=== PATIENT | male | born 1935 | race Caucasian/White ===

== ENCOUNTER 2016-11-04 11:33 | Emergency (ER) | payer MEDICARE, OTHER ==
[2016-11-04] MEDS ORDERED: NORMAL SALINE 500 ML IV ONE (13:31)
--- NOTE | 2016-11-04 13:32 | ER Document Report ---
ED Medical Screen (RME) - General Mode of Arrival: Ambulatory Information source: Patient TRAVEL OUTSIDE OF THE [place] IN LAST 30 DAYS: No <PATRICIA CHERY - Last Filed: 11/04/16 13:36> <JUDY WHEAT - Last Filed: 11/07/16 03:00> - General Chief Complaint: Abdominal Pain Stated Complaint: ABDOMINAL PAIN Notes: Patient is an 81-year-old male presenting emergency department for abdominal pain and nausea. Patient states he has had this pain for the past 6 months this morning. This pain was exacerbated. Patient woke up and asked his to taken into the emergency department because he is feeling very sick. Patient also has vomiting. Patient has a very decreased appetite and is not eating a lot. Patient has a history of hypertension and is not on any blood thinners. Patient's states that she saw some blood on his underwear. Patient falls a lot has not fallen recently. Patient also has dementia which is progressing. Patient is an alcoholic and has a history of widthdrawal. ( PATRICIA CHERY) - Related Data Allergies/Adverse Reactions: No Known Allergies Allergy (Verified 11/04/16 11:46) Past Medical History - Social History Chew tobacco use (# tins/day): No Frequency of alcohol use: Heavy Drug Abuse: None - Past Medical History Cardiac Medical History: Reports: Hx DVT, Hx Hypertension Denies: Hx Coronary Artery Disease, Hx Heart Attack Pulmonary Medical History: Denies: Hx Asthma, Hx Bronchitis, Hx COPD, Hx Pneumonia Neurological Medical History: Denies: Hx Cerebrovascular Accident, Hx Seizures Renal/ Medical History: Denies: Hx Peritoneal Dialysis Musculoskeltal Medical History: Reports Hx Arthritis Psychiatric Medical History: Reports: Hx Depression Traumatic Medical History: Reports: Hx Fractures - RIBS, RECENT Past Surgical History: Reports: Hx Neurologic Surgery - SPINAL FUSION - Immunizations Hx Diphtheria, Pertussis, Tetanus Vaccination: Yes <PATRICIA CHERY - Last Filed: 11/04/16 13:36> Physical Exam - Respiratory Respiratory status: No respiratory distress Chest status: Nontender Breath sounds: Normal Chest palpation: Normal - Cardiovascular Rhythm: Regular Heart sounds: Normal auscultation Murmur: No - Abdominal Tenderness: Tender - RLQ, LLQ and suprapubic tenderness with palpation, mild guarding, no rebound, no rigidity <PATRICIA CHERY - Last Filed: 11/04/16 13:36> Course <PATRICIA CHERY - Last Filed: 11/04/16 13:36> - Laboratory Result Diagrams: 11/04/16 15:00 11/04/16 15:00 <JUDY WHEAT - Last Filed: 11/07/16 03:00> - Re-evaluation Re-evalutation: 11/04/16 13:32 Patient presents emergency Department with his with a chief complaint abdominal pain. She said he is a chronic alcoholic for many years but got worse 3 or 4 years ago. She says she's also been increasingly confused and falls all the time. Last time he fell was about 2 weeks ago no known injury. He had an endoscopy done 68 months ago which showed an ulcer but he refused to take the Nexium. She said today she knew that he had drank this morning he was in severe distress complaining of abdominal pain. She said he gets increasingly confused so she can't really rely upon him but he said he needed to go to the hospital. He's been in withdrawal one time when he was admitted to the hospital by a year ago. His last drink was sometime this morning it is liquor only no ear he drinks about a half gallon of liquor every 4 days. She says he hasn't had anything to eat in about 2 days and has a poor appetite overall. She said she's been having nausea but no active vomiting and pain is located in the upper abdomen. On examination he is tachycardic and normotensive and afebrile. On examination he's got good bowel sounds. Tender to palpation with guarding in the right upper quadrant right lower quadrant suprapubic and left lower quadrant region. I am up in the triage area put a bunch of laboratory evaluation including IV and labs given reports my partner the back is going to be transferred to the back to have a further assessment and evaluation. 11/04/16 13:35 I personally performed the services described in the documentation reviewed the documentation recorded by my scribe in my presence and it accurately and completely records my words and actions (JUDY WHEAT) - Vital Signs Vital signs: Temp Pulse Resp BP Pulse Ox 98.4 F 112 H 12 132/87 H 99 11/04/16 11:46 11/04/16 11:46 11/04/16 17:01 11/04/16 17:00 11/04/16 17:01 - Laboratory Laboratory results interpreted by me: 11/04/16 11/04/16 11/04/16 15:00 15:00 15:00 RBC 3.30 L Hgb 12.2 L Hct 34.8 L MCV 105 H MCH 36.8 H Plt Count 98 L PT Sodium 136.6 L Lactic Acid Total Bilirubin 2.1 H Direct Bilirubin 0.9 H AST 74 H NT-Pro-B Natriuret Pep 577 H Total Protein 6.0 L Albumin 2.9 L Urine Protein Urine Urobilinogen Urine Ascorbic Acid 11/04/16 11/04/16 11/04/16 15:00 15:00 15:00 RBC Hgb Hct MCV MCH Plt Count PT 18.2 H Sodium Lactic Acid 2.5 H Total Bilirubin Direct Bilirubin AST NT-Pro-B Natriuret Pep Total Protein Albumin Urine Protein 100 H Urine Urobilinogen 4.0 H Urine Ascorbic Acid 20 H Doctor's Discharge <PATRICIA CHERY - Last Filed: 11/04/16 13:36> <JUDY WHEAT - Last Filed: 11/07/16 03:00> - Discharge Clinical Impression: Blood in stool, History of alcohol use disorder Abdominal pain Qualifiers: Abdominal location: unspecified location Qualified Code(s): R10.9 - Unspecified abdominal pain Condition: Stable Disposition: AGAINST MEDICAL ADVICE Instructions: Abdominal Pain ([facility]) Referrals: EMERALD TAPIA MD [Primary Care Provider] - Follow up as needed Scribe Documentation - Scribe Written by Scribe:: Patricia Chery 11/04/16 13:30 acting as scribe for DrLashell:: Siva <PATRICIA CHERY - Last Filed: 11/04/16 13:36>
--- NOTE | 2016-11-04 14:05 | ER Document Report ---
ED GI/ - General Chief Complaint: Abdominal Pain Stated Complaint: ABDOMINAL PAIN Mode of Arrival: Ambulatory Information source: Patient Notes: Patient presents complaining of a 6 month history of intermittent abdominal pain. Patient states that he had nausea and had dry heaves this morning. Patient reports decreased appetite at home. Patient ports previous history of an endoscopy procedure performed last year that showed early gastric ulcer. Patient reports having diarrhea 3 episodes today and when she noticed bright red blood. Patient does drink liquor about a half a gallon a day. Patient did drink alcohol this morning. TRAVEL OUTSIDE OF THE [place] IN LAST 30 DAYS: No - HPI Patient complains to provider of: Abdominal pain, Diarrhea - Nausea, Other Onset: Other - Abdominal pain off and on for 6 months, blood in stool this morning Timing/Duration: Gradual Quality of pain: Burning Pain Level: 2 Location: Epigastric Associated symptoms: Blood in stool, Diarrhea, Nausea, Vomiting - Dry heaving. denies: Blood in emesis, Urinary hesitancy, Urinary frequency, Urinary retention , Urinary urgency Exacerbated by: Denies Relieved by: Denies Similar symptoms previously: No Recently seen / treated by doctor: No - Related Data Allergies/Adverse Reactions: No Known Allergies Allergy (Verified 11/04/16 11:46) Past Medical History - General Information source: Patient - Social History Smoking Status: Never Smoker Chew tobacco use (# tins/day): No Frequency of alcohol use: Heavy Drug Abuse: None Lives with: Family Family History: Reviewed & Not Pertinent Patient has suicidal ideation: No Patient has homicidal ideation: No - Past Medical History Cardiac Medical History: Reports: Hx DVT, Hx Hypertension Denies: Hx Coronary Artery Disease, Hx Heart Attack Pulmonary Medical History: Denies: Hx Asthma, Hx Bronchitis, Hx COPD, Hx Pneumonia Neurological Medical History: Denies: Hx Cerebrovascular Accident, Hx Seizures Renal/ Medical History: Denies: Hx Peritoneal Dialysis Musculoskeltal Medical History: Reports Hx Arthritis Psychiatric Medical History: Reports: Hx Depression Traumatic Medical History: Reports: Hx Fractures - RIBS, RECENT Past Surgical History: Reports: Hx Neurologic Surgery - SPINAL FUSION - Immunizations Hx Diphtheria, Pertussis, Tetanus Vaccination: Yes Hx Pneumococcal Vaccination: 07/11/12 Review of Systems - Review of Systems Constitutional: No symptoms reported. denies: Fever EENT: No symptoms reported Cardiovascular: No symptoms reported. denies: Chest pain Respiratory: No symptoms reported. denies: Cough, Short of breath Gastrointestinal: Abdominal pain, Diarrhea, Nausea, Vomiting, Rectal bleeding Genitourinary: No symptoms reported. denies: Dysuria, Flank pain Male Genitourinary: No symptoms reported Musculoskeletal: No symptoms reported. denies: Back pain Skin: No symptoms reported Hematologic/Lymphatic: No symptoms reported Neurological/Psychological: No symptoms reported Physical Exam - Vital signs Vitals: Temp Pulse Resp BP Pulse Ox 98.4 F 112 H 18 132/86 H 96 11/04/16 11:46 11/04/16 11:46 11/04/16 11:46 11/04/16 11:46 11/04/16 11:46 - General General appearance: Appears well, Alert In distress: None - HEENT Head: Normocephalic, Atraumatic Eyes: Normal Nasal: Normal Mouth/Lips: Normal Mucous membranes: Normal Pharynx: Normal Neck: Normal, Supple. No: Lymphadenopathy - Respiratory Respiratory status: No respiratory distress Chest status: Nontender Breath sounds: Normal. No: Rales, Rhonchi, Stridor, Wheezing Chest palpation: Normal - Cardiovascular Rhythm: Tachycardia Heart sounds: S1 appreciated, S2 appreciated Murmur: No - Abdominal Inspection: Normal Distension: No distension Bowel sounds: Normal Tenderness: Tender Organomegaly: No organomegaly - Epigastric - Back Back: Normal, Nontender. No: CVA tenderness, Vertebra tenderness - Extremities General upper extremity: Normal inspection, Normal strength General lower extremity: Normal inspection, Normal strength - Neurological Neuro grossly intact: Yes Cognition: Normal Morton Coma Scale Eye Opening: Spontaneous Evangelina Coma Scale Verbal: Oriented Morton Coma Scale Motor: Obeys Commands Evangelina Coma Scale Total: 15 - Psychological Associated symptoms: Normal affect, Normal mood - Skin Skin Temperature: Warm Skin Moisture: Dry Skin Color: Pale Course - Re-evaluation Re-evalutation: 11/04/16 14:05 Patient refuses rectal examination, patient states that whenever he has a bowel movement he will let us know and we can check his stool for blood at that time. 11/04/16 16:30 Patient states that he cannot to the bathroom and he had a more firm stool without any obvious blood. Patient denies any abdominal tenderness at this time. Tachycardia has resolved, heart rate is in the 80s to 90s. Patient states that he is ready to go home. 11/04/16 16:[address] Barajsa who recommends CT imaging of abdomen. 11/04/16 18:04 Patient attempted IV out, states he wants to leave and does not want to have any CT imaging of his abdomen. Patient states he's not having any abdominal pain. Patient reports that he has had a solid bowel movement here without any blood in his stool. Provider asked patient if he felt like he was withdrawing from alcohol and if he needs something to help him with his symptoms. Patient states that he does not need any medications that he does not feel that he is withdrawing from alcohol. Patient states that he wants his calls that he can leave and go home. Phoned patient's and advised her of patient's request for her to come pick him up. Patient's states she will be here shortly. 11/04/16 18:23 Patient wanting to leave AMA.The patient has decided not to proceed with further recommended testing or treatment to determine the cause of her symptoms. The risk and alternatives to the recommendation were discussed the patient voiced understanding. The patient appears clinically to have the capacity to make this decision. The patient was instructed that they could return to the ER at any time to complete the testing or treatment. Patient and his verbalized understanding and agree with plan to leave AMA. - Vital Signs Vital signs: Temp Pulse Resp BP Pulse Ox 98.4 F 112 H 12 132/87 H 99 11/04/16 11:46 11/04/16 11:46 11/04/16 17:01 11/04/16 17:00 11/04/16 17:01 - Laboratory Result Diagrams: 11/04/16 15:00 11/04/16 15:00 Laboratory results interpreted by me: 11/04/16 11/04/16 11/04/16 15:00 15:00 15:00 RBC 3.30 L Hgb 12.2 L Hct 34.8 L MCV 105 H MCH 36.8 H Plt Count 98 L PT Sodium 136.6 L Lactic Acid Total Bilirubin 2.1 H Direct Bilirubin 0.9 H AST 74 H NT-Pro-B Natriuret Pep 577 H Total Protein 6.0 L Albumin 2.9 L Urine Protein Urine Urobilinogen Urine Ascorbic Acid 11/04/16 11/04/16 11/04/16 15:00 15:00 15:00 RBC Hgb Hct MCV MCH Plt Count PT 18.2 H Sodium Lactic Acid 2.5 H Total Bilirubin Direct Bilirubin AST NT-Pro-B Natriuret Pep Total Protein Albumin Urine Protein 100 H Urine Urobilinogen 4.0 H Urine Ascorbic Acid 20 H Labs- All tests 24 hr 11/04/16 11/04/16 11/04/16 15:00 15:00 15:00 WBC 4.9 RBC 3.30 L Hgb 12.2 L Hct 34.8 L MCV 105 H MCH 36.8 H MCHC 35.0 RDW 13.2 Plt Count 98 L Seg Neutrophils % 63.1 Lymphocytes % 24.8 Monocytes % 11.4 Eosinophils % 0.3 Basophils % 0.4 Absolute Neutrophils 3.1 Absolute Lymphocytes 1.2 Absolute Monocytes 0.6 Absolute Eosinophils 0.0 Absolute Basophils 0.0 PT INR Sodium 136.6 L Potassium 4.2 Chloride 98 Carbon Dioxide 28 Anion Gap 11 BUN 11 Creatinine 1.08 Est GFR ( Amer) > 60 Est GFR (Non-Af Amer) > 60 Glucose 105 Lactic Acid Calcium 8.8 Magnesium 1.6 Total Bilirubin 2.1 H Direct Bilirubin 0.9 H Indirect Bilirubin Not Reportable Neonat Total Bilirubin Not Reportable AST 74 H ALT 37 Alkaline Phosphatase 111 Troponin I < 0.012 NT-Pro-B Natriuret Pep 577 H Total Protein 6.0 L Albumin 2.9 L Lipase 207.8 Urine Color Urine Appearance Urine pH Ur Specific [place] Urine Protein Urine Glucose (UA) Urine Ketones Urine Blood Urine Nitrite Urine Bilirubin Urine Urobilinogen Ur Leukocyte Esterase Urine WBC (Auto) Urine RBC (Auto) U Hyaline Cast (Auto) Urine Mucus (Auto) Urine Ascorbic Acid Urine Opiates Screen Urine Methadone Screen Ur Barbiturates Screen Ur Phencyclidine Scrn Ur Amphetamines Screen U Benzodiazepines Scrn Urine Cocaine Screen U Marijuana (THC) Screen Serum Alcohol 64 Blood Type Antibody Screen 11/04/16 11/04/16 11/04/16 15:00 15:00 15:00 WBC RBC Hgb Hct MCV MCH MCHC RDW Plt Count Seg Neutrophils % Lymphocytes % Monocytes % Eosinophils % Basophils % Absolute Neutrophils Absolute Lymphocytes Absolute Monocytes Absolute Eosinophils Absolute Basophils PT 18.2 H INR 1.46 Sodium Potassium Chloride Carbon Dioxide Anion Gap BUN Creatinine Est GFR ( Amer) Est GFR (Non-Af Amer) Glucose Lactic Acid 2.5 H Calcium Magnesium Total Bilirubin Direct Bilirubin Indirect Bilirubin Neonat Total Bilirubin AST ALT Alkaline Phosphatase Troponin I NT-Pro-B Natriuret Pep Total Protein Albumin Lipase Urine Color YELLOW Urine Appearance CLEAR Urine pH 7.0 Ur Specific [place] 1.009 Urine Protein 100 H Urine Glucose (UA) NEGATIVE Urine Ketones NEGATIVE Urine Blood NEGATIVE Urine Nitrite NEGATIVE Urine Bilirubin NEGATIVE Urine Urobilinogen 4.0 H Ur Leukocyte Esterase NEGATIVE Urine WBC (Auto) 2 Urine RBC (Auto) 1 U Hyaline Cast (Auto) 2 Urine Mucus (Auto) RARE Urine Ascorbic Acid 20 H Urine Opiates Screen Urine Methadone Screen Ur Barbiturates Screen Ur Phencyclidine Scrn Ur Amphetamines Screen U Benzodiazepines Scrn Urine Cocaine Screen U Marijuana (THC) Screen Serum Alcohol Blood Type Antibody Screen 11/04/16 11/04/16 11/04/16 15:00 15:00 15:40 WBC RBC Hgb Hct MCV MCH MCHC RDW Plt Count Seg Neutrophils % Lymphocytes % Monocytes % Eosinophils % Basophils % Absolute Neutrophils Absolute Lymphocytes Absolute Monocytes Absolute Eosinophils Absolute Basophils PT INR Sodium Potassium Chloride Carbon Dioxide Anion Gap BUN Creatinine Est GFR ( Amer) Est GFR (Non-Af Amer) Glucose Lactic Acid Calcium Magnesium Total Bilirubin Direct Bilirubin Indirect Bilirubin Neonat Total Bilirubin AST ALT Alkaline Phosphatase Troponin I NT-Pro-B Natriuret Pep Total Protein Albumin Lipase Urine Color Urine Appearance Urine pH Ur Specific [place] Urine Protein Urine Glucose (UA) Urine Ketones Urine Blood Urine Nitrite Urine Bilirubin Urine Urobilinogen Ur Leukocyte Esterase Urine WBC (Auto) Urine RBC (Auto) U Hyaline Cast (Auto) Urine Mucus (Auto) Urine Ascorbic Acid Urine Opiates Screen NEGATIVE Urine Methadone Screen NEGATIVE Ur Barbiturates Screen NEGATIVE Ur Phencyclidine Scrn NEGATIVE Ur Amphetamines Screen NEGATIVE U Benzodiazepines Scrn NEGATIVE Urine Cocaine Screen NEGATIVE U Marijuana (THC) Screen NEGATIVE Serum Alcohol Blood Type Cancelled B POSITIVE Antibody Screen Cancelled NEGATIVE Discharge - Discharge Clinical Impression: Blood in stool, History of alcohol use disorder Abdominal pain Qualifiers: Abdominal location: unspecified location Qualified Code(s): R10.9 - Unspecified abdominal pain Condition: Stable Disposition: AGAINST MEDICAL ADVICE Instructions: Abdominal Pain ([facility]) Referrals: EMERALD TAPIA MD [Primary Care Provider] - Follow up as needed
[2016-11-04] MEDS ORDERED: MAGNESIUM SULFATE IV ONE ×5 (14:16)
[2016-11-04] MEDS ORDERED: NORMAL SALINE IV ONE ×5 (14:16)
[2016-11-04] MEDS ORDERED: POTASSIUM CHLORIDE IV ONE ×5 (14:16)
[2016-11-04] MEDS ORDERED: [UNRECOGNIZED DRUG - OTHER] IV ONE ×5 (14:16)
[2016-11-04 15:18] LABS: ABSOLUTE LYMPHOCYTES (AUTO) 1.2 10^3/uL (0.5-4.7); ABSOLUTE MONOCYTES (AUTO) 0.6 10^3/uL (0.1-1.4); ABSOLUTE NEUT (AUTO) 3.1 10^3/uL (1.7-8.2); BASOPHILS % (AUTO) 0.4 % (0-2); EOSINOPHILS % (AUTO) 0.3 % (0-6); HEMATOCRIT 34.8 % (37.9-51.0); HEMOGLOBIN 12.2 g/dL (13.5-17.0); HGB HCT DIFFERENCE 1.8; LYMPHOCYTES % (AUTO) 24.8 % (13-45); MEAN CORPUSCULAR HEMOGLOBIN 36.8 pg (27.0-33.4); MEAN CORPUSCULAR VOLUME 105 fl (80-97); MONOCYTES % (AUTO) 11.4 % (3-13); RED CELL DISTRIBUTION WIDTH 13.2 % (11.5-14.0); SEGMENTED NEUTROPHILS % (AUTO) 63.1 % (42-78); WHITE BLOOD COUNT 4.9 10^3/uL (4.0-10.5)
[2016-11-04 15:21] LABS: PROTHROMBIN TIME 18.2 SEC (11.4-15.4)
[2016-11-04 15:33] LABS: ALANINE AMINOTRANSFERASE 37 U/L (21-72); ALBUMIN 2.9 g/dL (3.5-5.0); ALCOHOL 64 mg/dL (NONE DETECTED); ALKALINE PHOSPHATASE 111 U/L (38-126); ANION GAP 11 (5-19); ASPARTATE AMINO TRANSFERASE 74 U/L (17-59); BILIRUBIN,DIRECT 0.9 mg/dL (0.0-0.4); BILIRUBIN,TOTAL 2.1 mg/dL (0.2-1.3); BLOOD UREA NITROGEN 11 mg/dL (7-20); CALCIUM 8.8 mg/dL (8.4-10.2); CARBON DIOXIDE 28 mmol/L (22-30); CHLORIDE 98 mmol/L (98-107); CREATININE RESULT 1.08 mg/dL (0.52-1.25); GLUCOSE 105 mg/dL (75-110); LIPASE 207.8 U/L (23-300); MAGNESIUM 1.6 mg/dL (1.6-2.3); POTASSIUM 4.2 mmol/L (3.6-5.0); SODIUM 136.6 mmol/L (137-145)
[2016-11-04 15:41] LABS: APPEARANCE,URINE CLEAR; BILIRUBIN,URINE NEGATIVE (NEGATIVE); GLUCOSE, URINE NEGATIVE (NEGATIVE); KETONES,URINE NEGATIVE (NEGATIVE); LEUKOCYTE ESTERASE,URINE NEGATIVE (NEGATIVE); NITRITE,URINE NEGATIVE (NEGATIVE); PROTEIN,URINE 100 mg/dL (NEGATIVE); URINE SPECIFIC GRAVITY 1.009
[2016-11-04 15:43] LABS: TROPONIN I < 0.012 ng/mL
[2016-11-04 15:53] LABS: URINE BARBITURATES SCREEN NEGATIVE; URINE METHADONE SCREEN NEGATIVE; URINE OPIATES LOW NEGATIVE; URINE PHENCYCLIDINE SCREEN NEGATIVE
[2016-11-04] MEDS ORDERED: NORMAL SALINE 1000 ML 1,000 ML with POTASSIUM CHLORIDE 20 MEQ, MAGNESIUM SULFATE 8 MEQ,... IV SCH ×5 (18:00)
[2016-11-04 18:33] VITALS: BP 132/87
--- NOTE | 2016-11-04 19:37 | EKG REPORT ---
SEVERITY:- ABNORMAL ECG - SINUS RHYTHM LEFT ANTERIOR FASCICULAR BLOCK LOW VOLTAGE THROUGHOUT : Confirmed by: Rob Rod 04-Nov-2016 19:36:36
== END 2016-11-04 18:33 | disposition left against medical advice (07) ==
LOC: ER 11:33
DX: R10.13 Epigastric pain (principal); K92.1 Melena; R11.0 Nausea; R63.0 Anorexia; R19.7 Diarrhea, unspecified; I10 Essential (primary) hypertension; R00.0 Tachycardia, unspecified; Z86.718 Personal history of other venous thrombosis and embolism; Z87.11 Personal history of peptic ulcer disease; Z72.89 Other problems related to lifestyle
CPT/HCPCS: 36415; 80053; 80307; 81001; 83605; 83690; 83735; 83880; 84484; 85025; 85610; 86850; 86900; 86901; 93005; 93010; 96360; 96361; 99284

== ENCOUNTER 2017-01-01 20:24 | Emergency (ER) | payer MEDICARE, OTHER ==
[2017-01-01] MEDS ORDERED: ONDANSETRON HCL INJ/PF 4 MG/2 ML SDV IV ONE (21:03)
[2017-01-01] MEDS ORDERED: NORMAL SALINE 1000 ML 1,000 ML IV PRN (21:03)
--- NOTE | 2017-01-01 21:03 | ER Document Report ---
ED General - General Chief Complaint: Other Stated Complaint: NOT FEELING WELL Time Seen by Provider: 01/01/17 21:02 Mode of Arrival: Ambulatory Information source: Patient Notes: There is an 81-year-old man with a history of hypertension and arthritis who presents to the emergency room with nausea, vomiting and urinary frequency. Patient denies any abdominal pain. The patient denies any fever. He states he just wants to "be checked out". Medical history: Hypertension, prostate enlargement, alcoholism TRAVEL OUTSIDE OF THE [place] IN LAST 30 DAYS: No - HPI Onset: Last week Onset/Duration: Gradual Quality of pain: No pain Severity: None Pain Level: Denies Associated symptoms: denies: Chest pain, Fever, Shortness of breath Exacerbated by: Denies Relieved by: Denies Similar symptoms previously: Yes Recently seen / treated by doctor: No - Related Data Allergies/Adverse Reactions: No Known Allergies Allergy (Verified 11/04/16 11:46) Past Medical History - General Information source: Patient - Social History Smoking Status: Never Smoker Cigarette use (# per day): No Chew tobacco use (# tins/day): No Frequency of alcohol use: Heavy Drug Abuse: None Lives with: Family Family History: Reviewed & Not Pertinent Patient has suicidal ideation: No Patient has homicidal ideation: No - Past Medical History Cardiac Medical History: Reports: Hx DVT, Hx Hypertension Denies: Hx Coronary Artery Disease, Hx Heart Attack Pulmonary Medical History: Denies: Hx Asthma, Hx Bronchitis, Hx COPD, Hx Pneumonia Neurological Medical History: Denies: Hx Cerebrovascular Accident, Hx Seizures Renal/ Medical History: Denies: Hx Peritoneal Dialysis Musculoskeltal Medical History: Reports Hx Arthritis Psychiatric Medical History: Reports: Hx Depression Traumatic Medical History: Reports: Hx Fractures - RIBS, RECENT Past Surgical History: Reports: Hx Neurologic Surgery - SPINAL FUSION - Immunizations Hx Diphtheria, Pertussis, Tetanus Vaccination: Yes Hx Pneumococcal Vaccination: 07/11/12 Review of Systems - Review of Systems Constitutional: denies: Chills, Fever EENT: No symptoms reported Cardiovascular: No symptoms reported Respiratory: No symptoms reported Gastrointestinal: See HPI Genitourinary: See HPI, Frequency Male Genitourinary: No symptoms reported Musculoskeletal: No symptoms reported Skin: No symptoms reported Hematologic/Lymphatic: No symptoms reported Neurological/Psychological: No symptoms reported Physical Exam - Vital signs Vitals: Temp Pulse Resp BP Pulse Ox 98.1 F 88 20 128/77 H 97 01/01/17 20:45 01/01/17 20:45 01/01/17 20:45 01/01/17 20:45 01/01/17 20:45 Notes: Physical exam: GENERAL:-year-old man, alert and oriented 3, no acute distress HEAD: Atraumatic, normocephalic. EYES: Pupils equal round and reactive to light, extraocular movements intact, sclera anicteric, conjunctiva are normal. ENT: TMs normal, nares patent, oropharynx clear without exudates. Moist mucous membranes. NECK: Normal range of motion, supple without lymphadenopathy or JVD. LUNGS: Breath sounds clear to auscultation bilaterally and equal. No wheezes rales or rhonchi. HEART: Regular rate and rhythm without murmurs, rubs or gallops. ABDOMEN: Soft, normoactive bowel sounds. No tenderness to palpation. No guarding, no rebound. No masses appreciated. EXTREMITIES: Normal range of motion, no pitting or edema. No clubbing or cyanosis. 2+ pulses distally NEUROLOGICAL: Cranial nerves II through XII grossly intact. Normal speech, normal gait. PSYCH: Normal mood, normal affect. SKIN: Warm, Dry, normal turgor, no rashes or lesions noted. Course - Re-evaluation Re-evalutation: Note: The patient was treated with IV Zofran and IV fluids. His abdomen was soft and non-tender. Xrays of the abdomen looked good and the patient's labs were baseline. I have had a long conversation with the patient's . The patient drinks alcohol every day and he has been an alcoholic for quite awhile. I have discussed with her that he does not have any indication for hospitalization at this time. Additionally, he has a history of getting agitated in the ER and I do not want to see him escalate or require physical restraints. As far as the vomiting: he is currently eating a dinner box from the cafeteria. As far as his frequency: he has a long history of prostate enlargement. There is no evidence of infection. 01/01/17 23:31 - Vital Signs Vital signs: Temp Pulse Resp BP Pulse Ox 98.1 F 88 20 128/77 H 97 01/01/17 20:45 01/01/17 20:45 01/01/17 20:45 01/01/17 20:45 01/01/17 20:45 - Laboratory Result Diagrams: 01/01/17 21:17 01/01/17 22:15 Laboratory results interpreted by me: 01/01/17 01/01/17 01/01/17 21:17 21:28 22:15 RBC 3.99 L MCV 107 H MCH 36.0 H Plt Count 139 L Total Bilirubin 1.9 H Direct Bilirubin 1.1 H AST 77 H Albumin 3.4 L Urine Ascorbic Acid 20 H - Diagnostic Test Radiology reviewed: Image reviewed - X-ray shows no infiltrates or effusions. Abdominal x-ray showed no dilated loops of bowel, no air-fluid levels., Reports reviewed Discharge - Discharge Clinical Impression: Frequency due to prostate enlargement, vomiting resolved Condition: Stable Disposition: HOME, SELF-CARE Additional Instructions: Continue current medications. Take Zofran if needed for nausea Take Thiamine (a vitamin) as prescribed. Take Magnesium daily (400 mg): this is also a needed electrolyte. return to the ER for any concerns that you are getting worse. Prescriptions: Ondansetron HCl [Zofran 4 mg Tablet] 1 - 2 tab PO Q4H PRN #10 tablet PRN Reason: Thiamine HCl [Thiamine 100 mg Tablet] 100 mg PO DAILY #30 tablet Referrals: EMERALD TAPIA MD [ACTIVE STAFF] - Follow up as needed
[2017-01-01 21:29] LABS: ABSOLUTE LYMPHOCYTES (AUTO) 2.4 10^3/uL (0.5-4.7); ABSOLUTE MONOCYTES (AUTO) 0.6 10^3/uL (0.1-1.4); ABSOLUTE NEUT (AUTO) 2.4 10^3/uL (1.7-8.2); BASOPHILS % (AUTO) 0.6 % (0-2); EOSINOPHILS % (AUTO) 0.6 % (0-6); HEMATOCRIT 42.9 % (37.9-51.0); HEMOGLOBIN 14.4 g/dL (13.5-17.0); HGB HCT DIFFERENCE 0.3; LYMPHOCYTES % (AUTO) 44.5 % (13-45); MEAN CORPUSCULAR HGB CONC 33.5 g/dL (32.0-36.0); MEAN CORPUSCULAR VOLUME 107 fl (80-97); MONOCYTES % (AUTO) 11.1 % (3-13); RED BLOOD COUNT 3.99 10^6/uL (4.35-5.55); RED CELL DISTRIBUTION WIDTH 13.1 % (11.5-14.0); SEGMENTED NEUTROPHILS % (AUTO) 43.2 % (42-78); WHITE BLOOD COUNT 5.4 10^3/uL (4.0-10.5)
[2017-01-01 21:43] LABS: APPEARANCE,URINE CLEAR; BILIRUBIN,URINE NEGATIVE (NEGATIVE); GLUCOSE, URINE NEGATIVE (NEGATIVE); KETONES,URINE NEGATIVE (NEGATIVE); LEUKOCYTE ESTERASE,URINE NEGATIVE (NEGATIVE); NITRITE,URINE NEGATIVE (NEGATIVE); PROTEIN,URINE NEGATIVE (NEGATIVE); URINE SPECIFIC GRAVITY 1.004; UROBILINOGEN,URINE NEGATIVE mg/dL (<2.0)
[2017-01-01] MEDS ORDERED: LORAZEPAM 1 MG TABLET PO ONE (21:51)
[2017-01-01 21:56] LABS: RBC,URINE NONE SEEN /HPF; WBC,URINE NONE SEEN /HPF
--- NOTE | 2017-01-01 22:17 | RADIOLOGY REPORT (SQ) ---
EXAM DESCRIPTION: ACUTE ABDOMEN SERIES COMPLETED DATE/TIME: 01/01/2017 10:07 pm REASON FOR STUDY: n,vomting COMPARISON: None. NUMBER OF VIEWS: Three views. TECHNIQUE: PA chest, supine abdomen and upright/decubitus abdomen radiographic images acquired. LIMITATIONS: None. FINDINGS: CHEST: Lungs clear of infiltrates. FREE AIR: None. No abnormal gas collections. BOWEL GAS PATTERN: Scattered gas-filled small bowel loops. No Air fluid levels identified. No disten ded large or small bowel loops. CALCIFICATIONS: No suspicious calcifications. HARDWARE: None in the abdomen. SOFT TISSUES: No gross mass or suggestion of organomegaly. BONES: No acute fracture. No worrisome bone lesions. OTHER: No other significant finding. IMPRESSION: NONSPECIFIC BOWEL GAS PATTERN. TECHNICAL DOCUMENTATION: JOB ID: [id number] [employer]- All Rights Reserved
[2017-01-01 23:00] LABS: ALANINE AMINOTRANSFERASE 39 U/L (21-72); ALBUMIN 3.4 g/dL (3.5-5.0); ALKALINE PHOSPHATASE 117 U/L (38-126); ANION GAP 12 (5-19); ASPARTATE AMINO TRANSFERASE 77 U/L (17-59); BILIRUBIN,DIRECT 1.1 mg/dL (0.0-0.4); BILIRUBIN,TOTAL 1.9 mg/dL (0.2-1.3); BLOOD UREA NITROGEN 11 mg/dL (7-20); CALCIUM 8.4 mg/dL (8.4-10.2); CARBON DIOXIDE 27 mmol/L (22-30); CHLORIDE 100 mmol/L (98-107); CREATININE RESULT 0.98 mg/dL (0.52-1.25); GLUCOSE 80 mg/dL (75-110); MAGNESIUM 1.6 mg/dL (1.6-2.3); POTASSIUM 4.3 mmol/L (3.6-5.0); SODIUM 138.9 mmol/L (137-145); TOTAL PROTEIN 7.6 g/dL (6.3-8.2)
[2017-01-02 00:12] VITALS: BP 128/74
== END 2017-01-02 00:11 | disposition home or self-care (01) ==
LOC: ER 20:24
DX: R11.2 Nausea with vomiting, unspecified (principal); N40.1 Benign prostatic hyperplasia with lower urinary tract symptoms; R35.0 Frequency of micturition; I10 Essential (primary) hypertension; F10.20 Alcohol dependence, uncomplicated
CPT/HCPCS: 99283; 96374; 36415; 83735; 85025; 80053; 81001; 74022; A9270; J2405

== ENCOUNTER 2017-02-16 16:47 | Inpatient (IN) | payer MEDICARE, OTHER ==
[2017-02-16] MEDS ORDERED: DEXTROSE 5%-WATER 1000 ML 1,000 ML IV PRN (17:48)
[2017-02-16 18:23] LABS: HEMOGLOBIN 13.7 g/dL (13.5-17.0); HGB HCT DIFFERENCE 2.1; MEAN CORPUSCULAR HEMOGLOBIN 37.3 pg (27.0-33.4); MEAN CORPUSCULAR HGB CONC 35.2 g/dL (32.0-36.0); MEAN CORPUSCULAR VOLUME 106 fl (80-97); RED BLOOD COUNT 3.68 10^6/uL (4.35-5.55); WHITE BLOOD COUNT 4.2 10^3/uL (4.0-10.5)
[2017-02-16 18:35] LABS: ALANINE AMINOTRANSFERASE 48 U/L (21-72); ALKALINE PHOSPHATASE 119 U/L (38-126); ANION GAP 11 (5-19); ASPARTATE AMINO TRANSFERASE 93 U/L (17-59); BILIRUBIN,DIRECT 3.5 mg/dL (0.0-0.4); BLOOD UREA NITROGEN 13 mg/dL (7-20); CALCIUM 8.3 mg/dL (8.4-10.2); CARBON DIOXIDE 28 mmol/L (22-30); CHLORIDE 92 mmol/L (98-107); GLUCOSE 97 mg/dL (75-110); POTASSIUM 4.1 mmol/L (3.6-5.0); SODIUM 131.3 mmol/L (137-145); TOTAL PROTEIN 6.6 g/dL (6.3-8.2)
[2017-02-16] MEDS ORDERED: LORAZEPAM INJ 2 MG/1 ML VIAL IV ONE (19:00)
[2017-02-16] MEDS ORDERED: LORAZEPAM INJ 2 MG/1 ML VIAL IV PRN (19:22)
--- NOTE | 2017-02-16 19:22 | RADIOLOGY REPORT (SQ) ---
EXAM DESCRIPTION: CHEST SINGLE VIEW COMPLETED DATE/TIME: 02/16/2017 6:47 pm REASON FOR STUDY: WENDY SERNA COMPARISON: 08/10/2015 EXAM PARAMETERS: NUMBER OF VIEWS: One view. TECHNIQUE: Single frontal radiographic view of the chest acquired. RADIATION DOSE: NA LIMITATIONS: None. FINDINGS: LUNGS AND PLEURA: No opacities, masses or pneumothorax. No pleural effusion. MEDIASTINUM AND HILAR STRUCTURES: No masses. Contour normal. HEART AND VASCULAR STRUCTURES: Heart normal in size. Normal vasculature. BONES: There are old rib fractures on the right. HARDWARE: None in the chest. OTHER: No other significant finding. IMPRESSION: NO ACUTE RADIOGRAPHIC FINDING IN THE CHEST. TECHNICAL DOCUMENTATION: JOB ID: [id number]
--- NOTE | 2017-02-16 19:25 | RADIOLOGY REPORT (SQ) ---
EXAM DESCRIPTION: CT ABD/PELVIS NO ORAL OR IV COMPLETED DATE/TIME: 02/16/2017 6:48 pm REASON FOR STUDY: WENDY SERNA COMPARISON: 08/11/2015 TECHNIQUE: CT scan of the abdomen and pelvis performed without intravenous or oral contrast. Images reviewed with lung, soft tissue, and bone windows. Reconstructed coronal and sagittal MPR images revi ewed. All images stored on PACS. All CT scanners at this facility use dose modulation, iterative reconstruction, and/or weight based d osing when appropriate to reduce radiation dose to as low as reasonably achievable (ALARA). [facility]: Dose Right [facility]: CareDose [facility]: Dose Right [facility]: Teradose 4D [facility]: Smart VERTILAS RADIATION DOSE: Up-to-date CT equipment and radiation dose reduction techniques were employed. CTDIv ol: 13.3 mGy. DLP: 746 mGy-cm.mGy. LIMITATIONS: None. FINDINGS: LOWER CHEST: No significant findings. No nodules or infiltrates. NON-CONTRASTED LIVER, SPLEEN, ADRENALS: There is perihepatic and perisplenic fluid. No focal hepatic or splenic lesions. No adrenal masses. PANCREAS: No masses. No peripancreatic inflammatory changes. GALLBLADDER: There is high attenuating material in the gallbladder which may represent stones. Has t he patient had IV contrast? This could represent vicarious excretion of contrast. RIGHT KIDNEY AND URETER: No suspicious masses. Assessment limited by lack of IV contrast. No signif icant calcifications. No hydronephrosis or hydroureter. LEFT KIDNEY AND URETER: No suspicious masses. Assessment limited by lack of IV contrast. No signifi cant calcifications. No hydronephrosis or hydroureter. AORTA AND RETROPERITONEUM: No aneurysm. No retroperitoneal masses or adenopathy. BOWEL AND PERITONEAL CAVITY: There is moderate volume ascites. No evidence of mechanical obstruction , no bowel wall thickening. There is a hiatal hernia this contains small amount of ascites. APPENDIX: Not visualized. PELVIS, BLADDER, AND ABDOMINAL WALL:There is free fluid in the pelvis. Bladder wall is slightly thic kened. Prostate is enlarged. BONES: No significant findings. OTHER: No other significant finding. IMPRESSION: Moderate volume ascites. Prostate enlargement. TECHNICAL DOCUMENTATION: JOB ID: [id number] Quality ID # [id number]: Final reports with documentation of one or more dose reduction techniques (e.g., Au tomated exposure control, adjustment of the mA and/or kV according to patient size, use of iterative reconstruction technique) 2010 [employer]- All Rights Reserved
[2017-02-16] MEDS: LORAZEPAM INJ 2 MG/1 ML VIAL IV SCH (21:12)
[2017-02-16 23:10] LABS: PROTHROMBIN TIME 20.5 SEC (11.4-15.4)
[2017-02-16 23:11] LABS: PARTIAL THROMBOPLASTIN TIME 31.9 SEC (23.5-35.8)
[2017-02-17 04:51] LABS: APPEARANCE,URINE CLEAR; BILIRUBIN,URINE NEGATIVE (NEGATIVE); GLUCOSE, URINE NEGATIVE (NEGATIVE); KETONES,URINE NEGATIVE (NEGATIVE); LEUKOCYTE ESTERASE,URINE NEGATIVE (NEGATIVE); NITRITE,URINE NEGATIVE (NEGATIVE); PROTEIN,URINE 100 mg/dL (NEGATIVE); URINE SPECIFIC GRAVITY 1.006
[2017-02-17 08:36] LABS: URINE CREATININE 121.9 mg/dL (22-328); URINE PROTEIN 125.5 mg/dL (<12)
--- NOTE | 2017-02-17 08:44 | PDOC H&P ---
History of Present Illness Admission Date/PCP: 02/16/17 16:47 History of Present Illness: ERIC WEIR is a 81 year old male He came to the office with his primarily for the refill of his medication, atenolol. Patient has not been seen in the office in over a year, he is an alcoholic, he drinks liquor on a regular daily basis. The stated that he does not eat but he drinks alcohol every day. In the office he was evaluated he was found to have tachycardia with heart rate of about 130, he was jaundiced, the abdomen was distended there was shifting dullness that was suggestive of ascites, there was lower extremity edema, or this is consistent with acute liver failure because patient was acutely ill looking and the fact that I suspect acute liver injury I admitted him directly from the office into the hospital for management CT scan of the abdomen and pelvis with no contrast was done he showed perihepatic and perisplenic fluid no focal hepatic or splenic lesions. There was no masses in the pancreas. There is high attenuating material in the gallbladder which may represent stones no suspicious masses in both kidneys no significant calcifications no hydronephrosis or hydroureter. There is moderate volume ascites no evidence of mechanical obstruction no bowel wall thickening the prostate is enlarged the bladder wall is slightly thickened patient clinical condition is very poor, he is expected to stay 2 midnights he will be admitted, inpatient, he may need steroid therapy, intravenous thiamine, abdominal paracentesis. There is also acute kidney injury probably prerenal. Past Medical History Cardiac Medical History: Reports: Coronary Artery Disease, DVT, Hypertension, Other - He has a history of deep vein thrombosis Pulmonary Medical History: Reports: Chronic Obstructive Pulmonary Disease (COPD) GI Medical History: Reports: Cirrhosis - 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, once kidney function improved CT scan Musculoskeltal Medical History: Reports: Arthritis Psychiatric Medical History: Reports: Alcohol Dependency, Depression Social History Smoking Status: Never Smoker Frequency of Alcohol Use: Heavy Hx Recreational Drug Use: No Drugs: None Hx Prescription Drug Abuse: No Family History Family History: Reviewed & Not Pertinent Parental Family History Reviewed: Yes Children Family History Reviewed: Yes Sibling(s) Family History Reviewed.: Yes Medication/Allergy Home Medications: Amlodipine Besylate [Norvasc 2.5 mg Tablet] 2.5 mg PO DAILY 02/17/17 Atenolol [Tenormin] 25 mg PO Q12 02/17/17 Allergies/Adverse Reactions: No Known Allergies Allergy (Verified 11/04/16 11:46) Review of Systems Constitutional: PRESENT: anorexia Ears: ABSENT: hearing changes Cardiovascular: PRESENT: edema Respiratory: ABSENT: cough, hemoptysis Gastrointestinal: PRESENT: bloating Genitourinary: ABSENT: dysuria, hematuria Musculoskeletal: ABSENT: joint swelling Integumentary: ABSENT: rash, wounds Neurological: ABSENT: abnormal gait, abnormal speech, confusion, dizziness, focal weakness, syncope Psychiatric: ABSENT: anxiety, depression, homidical ideation, suicidal ideation Endocrine: ABSENT: cold intolerance, heat intolerance, menstrual abnormalities, polydipsia, polyuria Hematologic/Lymphatic: ABSENT: easy bleeding, easy bruising, lymphadenopathy Physical Exam Vital Signs: Temp Pulse Resp BP Pulse Ox 98.3 F 99 20 137/81 H 98 02/17/17 03:44 02/17/17 03:44 02/17/17 03:44 02/17/17 03:44 02/17/17 03:44 Intake & Output 02/16/17 02/17/17 02/18/17 06:59 06:59 06:59 Intake Total 668 Output Total 0 Balance 668 Weight 80 kg General appearance: PRESENT: mild distress Eye exam: PRESENT: PERRLA, scleral icterus Ear exam: PRESENT: normal external ear exam Mouth exam: PRESENT: moist, tongue midline Neck exam: PRESENT: full ROM Respiratory exam: PRESENT: clear to auscultation hussein Cardiovascular exam: PRESENT: RRR, +S1, +S2 Vascular exam: PRESENT: normal capillary refill GI/Abdominal exam: PRESENT: distended, other - caput medusa Rectal exam: PRESENT: deferred Extremities exam: PRESENT: pedal edema Neurological exam: PRESENT: altered Psychiatric exam: PRESENT: appropriate affect, normal mood Skin exam: PRESENT: dry, erythema - There is palmar erythema, intact, warm, other - There is caput medusa of the abdomen Results Laboratory Results: 02/16/17 18:15 02/16/17 18:15 02/16/17 02/16/17 02/17/17 18:15 18:15 04:22 WBC 4.2 RBC 3.68 L Hgb 13.7 Hct 39.0 MCV 106 H MCH 37.3 H MCHC 35.2 RDW 14.0 Plt Count 104 L Sodium 131.3 L Potassium 4.1 Chloride 92 L Carbon Dioxide 28 Anion Gap 11 BUN 13 Creatinine 1.30 H Est GFR ( Amer) > 60 Est GFR (Non-Af Amer) 53 L Glucose 97 Calcium 8.3 L Total Bilirubin 6.0 H AST 93 H ALT 48 Alkaline Phosphatase 119 Total Protein 6.6 Albumin 3.0 L Urine Color KARINA Urine Appearance CLEAR Urine pH 6.0 Ur Specific [place] 1.006 Urine Protein 100 H Urine Glucose (UA) NEGATIVE Urine Ketones NEGATIVE Urine Blood NEGATIVE Urine Nitrite NEGATIVE Ur Leukocyte Esterase NEGATIVE Urine WBC (Auto) 2 Urine RBC (Auto) 1 Impressions: Abdomen/Pelvis CT 02/16/17 00:00 IMPRESSION: Moderate volume ascites. Prostate enlargement. Chest X-Ray 02/16/17 00:00 IMPRESSION: NO ACUTE RADIOGRAPHIC FINDING IN THE CHEST. Assessment & Plan - Diagnosis (1) Acute liver failure Qualifiers: Hepatic coma status: without hepatic coma Qualified Code(s): K72.00 - Acute and subacute hepatic failure without coma Is this a current diagnosis for this admission?: YesPlan: He has stigmata of chronic liver disease including caput medusa,, erythema, jaundice, hypoalbuminemia, hyperbilirubinemia. He may need intravenous steroid (2) Acute on chronic alcoholic liver disease Is this a current diagnosis for this admission?: Yes (3) Alcoholic cirrhosis of liver with ascites Is this a current diagnosis for this admission?: YesPlan: Abdominal paracentesis will be ordered, most likely he has liver cirrhosis, once kidney function improves CT scan with contrast to be ordered. - Inpatient Certification Based on my medical assessment, after consideration of the patient's comorbidities, presenting symptoms, or acuity I expect that the services needed warrant INPATIENT care.: Yes Medical Necessity: Significant Comorbidiites Make Outpatient Treatment Too Risky , Need Close Monitoring Due to Risk of Patient Decompensation, Need For IV Fluids, Need for Neurological Checks, Risk of Complication if Not Cared For in Hospital
[2017-02-17] MEDS: THIAMINE HCL 100 MG in NORMAL SALINE 50 ML IV SCH (09:59)
[2017-02-17] MEDS: LORAZEPAM INJ 2 MG/1 ML VIAL IV SCH ×2 (10:01→21:55)
[2017-02-17 10:03] LABS: ABSOLUTE LYMPHOCYTES (AUTO) 1.5 10^3/uL (0.5-4.7); ABSOLUTE MONOCYTES (AUTO) 0.5 10^3/uL (0.1-1.4); ABSOLUTE NEUT (AUTO) 1.9 10^3/uL (1.7-8.2); ALANINE AMINOTRANSFERASE 45 U/L (21-72); ALKALINE PHOSPHATASE 114 U/L (38-126); ANION GAP 9 (5-19); ASPARTATE AMINO TRANSFERASE 84 U/L (17-59); BASOPHILS % (AUTO) 0.4 % (0-2); BILIRUBIN,DIRECT 3.1 mg/dL (0.0-0.4); BILIRUBIN,TOTAL 5.3 mg/dL (0.2-1.3); BLOOD UREA NITROGEN 13 mg/dL (7-20); CALCIUM 8.3 mg/dL (8.4-10.2); CARBON DIOXIDE 30 mmol/L (22-30); CHLORIDE 92 mmol/L (98-107); CREATININE RESULT 1.22 mg/dL (0.52-1.25); EOSINOPHILS % (AUTO) 0.9 % (0-6); GLUCOSE 125 mg/dL (75-110); HEMATOCRIT 39.8 % (37.9-51.0); HGB HCT DIFFERENCE 2.2; LYMPHOCYTES % (AUTO) 38.3 % (13-45); MEAN CORPUSCULAR HEMOGLOBIN 36.7 pg (27.0-33.4); MEAN CORPUSCULAR HGB CONC 35.2 g/dL (32.0-36.0); MEAN CORPUSCULAR VOLUME 104 fl (80-97); MONOCYTES % (AUTO) 12.4 % (3-13); POTASSIUM 3.6 mmol/L (3.6-5.0); RED BLOOD COUNT 3.82 10^6/uL (4.35-5.55); RED CELL DISTRIBUTION WIDTH 14.2 % (11.5-14.0); SODIUM 131.1 mmol/L (137-145); TOTAL PROTEIN 6.6 g/dL (6.3-8.2); WHITE BLOOD COUNT 3.9 10^3/uL (4.0-10.5)
--- NOTE | 2017-02-17 12:55 | EKG REPORT ---
SEVERITY:- ABNORMAL ECG - SINUS TACHYCARDIA VENTRICULAR PREMATURE COMPLEX LEFT ANTERIOR FASCICULAR BLOCK LOW VOLTAGE THROUGHOUT BORDERLINE T ABNORMALITIES, INFERIOR LEADS PROLONGED QT INTERVAL : Confirmed by: Rob Rod 17-Feb-2017 12:54:27
--- NOTE | 2017-02-17 14:26 | RADIOLOGY REPORT (SQ) ---
EXAM DESCRIPTION: U/S ABD PARACENTESIS COMPLETED DATE/TIME: 02/17/2017 1:49 pm REASON FOR STUDY: ascities COMPARISON CT abdomen pelvis 02/16/2017 LIMITATIONS: None. PROCEDURE: After obtaining informed consent, the patient was brought to the ultrasound suite. The p rocedure was performed with the patient on a gurney. Ultrasound was used to identify a small pocket of ascites in the right lower quadrant. An appropriate access site was selected. The patient was pr epped and draped in usual sterile fashion. The access site was anesthetized with 6 mL 1% lidocaine. A 5 Turk[place] Accustick needle was advanced into the fluid. After aspiration of fluid the needle, the catheter was advanced off the needle into the fluid. A total of 700 mL of clear straw-colored fluid was removed. The patient tolerated the procedure well left the department in satisfactory condition. Specimens were sent to the lab for analysis as per Dr. Pandya IMPRESSION: Successful ultrasound-guided diagnostic paracentesis COMMENT: Patient medication list reviewed: Yes- Quality ID# [id number]:Eligible professional attests to doc umenting in the medical record they obtained, updated, or reviewed the patient's current medications. Quality ID #76: The patient was prepped and draped using maximum sterile barrier technique including cap, mask, sterile gown, sterile gloves, a large sterile sheet, hand hygiene, and 2% Chlorhexidine fo r cutaneous antisepsis. When ultrasound is used, sterile ultrasound techniques are followed requiring sterile gel and sterile probes. Quality ID #145: Final reports for procedures using fluoroscopy that document radiation exposure claudio kimberly, or exposure time and number of fluorographic images (if radiation exposure indices are not avail able) TECHNICAL DOCUMENTATION: JOB ID: [id number] [employer]- All Rights Reserved
[2017-02-17 14:55] LABS: FLUID TYPE PERITONEAL
[2017-02-17 14:56] LABS: FLUID APPEARANCE CLEAR; FLUID RBC AVERAGE 56.5; FLUID RBC DILUENT USED NONE USED; FLUID RBC DILUTION FACTOR 1; FLUID RBC SIDE 1 56; FLUID RBC SIDE 2 57; TOTAL RBC SQUARES COUNTED FLD 225
[2017-02-17] MEDS ORDERED: NORMAL SALINE 1000 ML 1,000 ML IV PRN (21:04)
--- NOTE | 2017-02-17 21:10 | PDOC PROGRESS REPORT ---
Subjective Progress Note for:: 02/17/17 Subjective:: Patient was admitted yesterday when he presented to the office with acute liver failure associated with ascites. He underwent abdominal paracentesis today, 700 mL of ascites fluid was drained from the abdomen, patient is somewhat confused, the plan of care was discussed with family, he will be treated with IV Solu-Medrol for the acute alcohol hepatitis associated with hyperbilirubinemia. The kidney function is improved with hydration a CAT scan of the abdomen and pelvis with IV contrast will be ordered. Physical Exam Vital Signs: Temp Pulse Resp BP Pulse Ox 98.2 F 101 H 16 114/65 94 02/17/17 15:07 02/17/17 19:00 02/17/17 15:07 02/17/17 15:07 02/17/17 15:07 Intake & Output 02/16/17 02/17/17 02/18/17 06:59 06:59 06:59 Intake Total 668 400 Output Total 0 50 Balance 668 350 Weight 80 kg General appearance: PRESENT: mild distress Eye exam: PRESENT: PERRLA, scleral icterus Respiratory exam: PRESENT: clear to auscultation hussein Cardiovascular exam: PRESENT: +S1, +S2 GI/Abdominal exam: PRESENT: soft Neurological exam: PRESENT: altered Results Laboratory Results: 02/17/17 09:34 02/17/17 09:34 02/17/17 02/17/17 02/17/17 04:22 09:34 09:34 WBC 3.9 L RBC 3.82 L Hgb 14.0 Hct 39.8 MCV 104 H MCH 36.7 H MCHC 35.2 RDW 14.2 H Plt Count 101 L Seg Neutrophils % 48.0 Lymphocytes % 38.3 Monocytes % 12.4 Eosinophils % 0.9 Basophils % 0.4 Absolute Neutrophils 1.9 Absolute Lymphocytes 1.5 Absolute Monocytes 0.5 Absolute Eosinophils 0.0 Absolute Basophils 0.0 Sodium 131.1 L Potassium 3.6 Chloride 92 L Carbon Dioxide 30 Anion Gap 9 BUN 13 Creatinine 1.22 Est GFR ( Amer) > 60 Est GFR (Non-Af Amer) 57 L Glucose 125 H Calcium 8.3 L Total Bilirubin 5.3 H AST 84 H ALT 45 Alkaline Phosphatase 114 Total Protein 6.6 Albumin 3.0 L Urine Color KARINA Urine Appearance CLEAR Urine pH 6.0 Ur Specific [place] 1.006 Urine Protein 100 H Urine Glucose (UA) NEGATIVE Urine Ketones NEGATIVE Urine Blood NEGATIVE Urine Nitrite NEGATIVE Ur Leukocyte Esterase NEGATIVE Urine WBC (Auto) 2 Urine RBC (Auto) 1 Fluid Type Fluid Source Fluid Color Fluid Appearance Fluid Viscosity Fluid WBC Fluid RBC 02/17/17 13:30 WBC RBC Hgb Hct MCV MCH MCHC RDW Plt Count Seg Neutrophils % Lymphocytes % Monocytes % Eosinophils % Basophils % Absolute Neutrophils Absolute Lymphocytes Absolute Monocytes Absolute Eosinophils Absolute Basophils Sodium Potassium Chloride Carbon Dioxide Anion Gap BUN Creatinine Est GFR ( Amer) Est GFR (Non-Af Amer) Glucose Calcium Total Bilirubin AST ALT Alkaline Phosphatase Total Protein Albumin Urine Color Urine Appearance Urine pH Ur Specific [place] Urine Protein Urine Glucose (UA) Urine Ketones Urine Blood Urine Nitrite Ur Leukocyte Esterase Urine WBC (Auto) Urine RBC (Auto) Fluid Type PERITONEAL Fluid Source ASCITES Fluid Color YELLOW Fluid Appearance CLEAR Fluid Viscosity LIQUID Fluid WBC 64 Fluid RBC 62 Impressions: Abdomen/Pelvis CT 02/16/17 00:00 IMPRESSION: Moderate volume ascites. Prostate enlargement. Chest X-Ray 02/16/17 00:00 IMPRESSION: NO ACUTE RADIOGRAPHIC FINDING IN THE CHEST. 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
[2017-02-17] MEDS: METHYLPREDNISOLONE INJ 40 MG/1 ML SDV IV SCH (21:55)
[2017-02-18] MEDS: METHYLPREDNISOLONE INJ 40 MG/1 ML SDV IV SCH ×3 (05:43→21:26)
[2017-02-18] MEDS: THIAMINE HCL 100 MG in NORMAL SALINE 50 ML IV SCH (09:14)
[2017-02-18] MEDS: LORAZEPAM INJ 2 MG/1 ML VIAL IV SCH ×2 (09:14→21:26)
--- NOTE | 2017-02-18 13:54 | RADIOLOGY REPORT (SQ) ---
EXAM DESCRIPTION: CT ABD/PELVIS WITH IV ONLY COMPLETED DATE/TIME: 02/18/2017 1:31 pm REASON FOR STUDY: liver cirrhosis COMPARISON: Non contrasted CT of the abdomen and pelvis dated 02/16/2017 TECHNIQUE: CT scan of the abdomen and pelvis performed using helical scanning technique with dynamic intravenous contrast injection. No oral contrast. Images reviewed with lung, soft tissue, and bone windows. Reconstructed coronal and sagittal MPR images reviewed. Delayed images for evaluation of the urinary system also acquired. All images stored on PACS. All CT scanners at this facility use dose modulation, iterative reconstruction, and/or weight based d osing when appropriate to reduce radiation dose to as low as reasonably achievable (ALARA). [facility]: Dose Right [facility]: CareDose [facility]: Dose Right [facility]: Teradose 4D [facility]: Bountii CONTRAST TYPE AND DOSE: contrast/concentration: Isovue 370.00 mg/ml; Total Contrast Delivered: 86.0 ml; Total Saline Delivered: 69.0 ml RENAL FUNCTION: Not available RADIATION DOSE: Up-to-date CT equipment and radiation dose reduction techniques were employed. CTDIv ol: 14.2 - 18.2 mGy. DLP: 1978 mGy-cm.. LIMITATIONS: None. FINDINGS: LOWER CHEST: Small left pleural effusion is identified. LIVER: Normal size. No masses. No dilated ducts. There is diffuse fatty infiltration of the liver. SPLEEN: Normal size. No focal lesions. PANCREAS: No masses. No significant calcifications. No adjacent inflammation or peripancreatic fluid collections. Pancreatic duct not dilated. GALLBLADDER: No identified stones by CT criteria. No inflammatory changes to suggest cholecystitis. ADRENAL GLANDS: No significant masses or asymmetry. RIGHT KIDNEY AND URETER: No solid masses. No significant calcifications. No hydronephrosis or hyd roureter. LEFT KIDNEY AND URETER: No solid masses. No significant calcifications. No hydronephrosis or hydr oureter. AORTA AND VESSELS: No aneurysm. No dissection. Renal arteries, SMA, celiac without stenosis. RETROPERITONEUM: No retroperitoneal adenopathy, hemorrhage or masses. BOWEL AND PERITONEAL CAVITY: No masses or inflammatory changes. Perihepatic and perisplenic ascitic fluid appear essentially unchanged. APPENDIX: Not identified PELVIS: Pelvic ascitic fluid appears unchanged. Again there is prostatic enlargement with a prostati c impression on the bladder base. ABDOMINAL WALL: Ascitic fluid is identified in a left inguinal hernia. BONES: Degenerative changes are again identified OTHER: No other significant finding. IMPRESSION: Intra-abdominal and pelvic ascitic fluid appear essentially unchanged. Fatty infiltrati on of the liver. Other findings as noted above TECHNICAL DOCUMENTATION: JOB ID: [id number] Quality ID # [id number]: Final reports with documentation of one or more dose reduction techniques (e.g., Au tomated exposure control, adjustment of the mA and/or kV according to patient size, use of iterative reconstruction technique) 2010 [employer]- All Rights Reserved
[2017-02-18 14:47] LABS: ABSOLUTE LYMPHOCYTES (AUTO) 0.4 10^3/uL (0.5-4.7); ABSOLUTE MONOCYTES (AUTO) 0.2 10^3/uL (0.1-1.4); HEMOGLOBIN 13.7 g/dL (13.5-17.0); LYMPHOCYTES % (AUTO) 10.7 % (13-45); WHITE BLOOD COUNT 3.8 10^3/uL (4.0-10.5)
[2017-02-18 14:51] LABS: ABSOLUTE NEUT (AUTO) 3.2 10^3/uL (1.7-8.2); BASOPHILS % (AUTO) 0.1 % (0-2); HEMATOCRIT 38.8 % (37.9-51.0); HGB HCT DIFFERENCE 2.3; MEAN CORPUSCULAR HEMOGLOBIN 37.3 pg (27.0-33.4); MEAN CORPUSCULAR HGB CONC 35.4 g/dL (32.0-36.0); MEAN CORPUSCULAR VOLUME 105 fl (80-97); MONOCYTES % (AUTO) 6.2 % (3-13); RED BLOOD COUNT 3.68 10^6/uL (4.35-5.55)
[2017-02-18 15:39] LABS: ALANINE AMINOTRANSFERASE 40 U/L (21-72); ALBUMIN 2.6 g/dL (3.5-5.0); ALKALINE PHOSPHATASE 101 U/L (38-126); ANION GAP 9 (5-19); ASPARTATE AMINO TRANSFERASE 67 U/L (17-59); BILIRUBIN,DIRECT 3.1 mg/dL (0.0-0.4); BILIRUBIN,TOTAL 4.2 mg/dL (0.2-1.3); BLOOD UREA NITROGEN 16 mg/dL (7-20); CARBON DIOXIDE 26 mmol/L (22-30); CHLORIDE 97 mmol/L (98-107); CREATININE RESULT 1.16 mg/dL (0.52-1.25); GLUCOSE 139 mg/dL (75-110); POTASSIUM 4.3 mmol/L (3.6-5.0); SODIUM 131.7 mmol/L (137-145); TOTAL PROTEIN 6.2 g/dL (6.3-8.2)
--- NOTE | 2017-02-18 16:17 | PDOC PROGRESS REPORT ---
Subjective Progress Note for:: 02/18/17 Subjective:: Patient was seen by the bedside, the CAT scan of the abdomen and pelvis that was done showed fatty infiltration of the liver also demonstrates is ascities Physical Exam Vital Signs: Temp Pulse Resp BP Pulse Ox 97.7 F 114 H 18 136/86 H 96 02/18/17 11:35 02/18/17 13:57 02/18/17 11:35 02/18/17 11:35 02/18/17 11:35 Intake & Output 02/17/17 02/18/17 02/19/17 06:59 06:59 06:59 Intake Total 668 1400 200 Output Total 0 50 125 Balance 668 1350 75 Weight 80 kg 78.4 kg General appearance: PRESENT: no acute distress Eye exam: PRESENT: PERRLA, scleral icterus Respiratory exam: PRESENT: clear to auscultation hussein Cardiovascular exam: PRESENT: +S1, +S2 GI/Abdominal exam: PRESENT: soft Neurological exam: PRESENT: alert Results Laboratory Results: 02/18/17 14:05 02/18/17 15:18 02/17/17 02/18/17 02/18/17 21:02 06:05 14:05 WBC 3.8 L RBC 3.68 L Hgb 13.7 Hct 38.8 MCV 105 H MCH 37.3 H MCHC 35.4 RDW 14.0 Plt Count 100 L Seg Neutrophils % 83.0 H Lymphocytes % 10.7 L Monocytes % 6.2 Eosinophils % 0.0 Basophils % 0.1 Absolute Neutrophils 3.2 Absolute Lymphocytes 0.4 L Absolute Monocytes 0.2 Absolute Eosinophils 0.0 Absolute Basophils 0.0 Sodium Potassium Chloride Carbon Dioxide Anion Gap BUN Creatinine Est GFR ( Amer) Est GFR (Non-Af Amer) Glucose Calcium Total Bilirubin AST ALT Alkaline Phosphatase Ammonia 20.0 < 8.7 L Total Protein Albumin Prostate Specific Ag 02/18/17 02/18/17 14:05 15:18 WBC RBC Hgb Hct MCV MCH MCHC RDW Plt Count Seg Neutrophils % Lymphocytes % Monocytes % Eosinophils % Basophils % Absolute Neutrophils Absolute Lymphocytes Absolute Monocytes Absolute Eosinophils Absolute Basophils Sodium Cancelled 131.7 L Potassium Cancelled 4.3 Chloride Cancelled 97 L Carbon Dioxide Cancelled 26 Anion Gap Cancelled 9 BUN Cancelled 16 Creatinine Cancelled 1.16 Est GFR ( Amer) Cancelled > 60 Est GFR (Non-Af Amer) Cancelled > 60 Glucose Cancelled 139 H Calcium Cancelled 8.0 L Total Bilirubin Cancelled 4.2 H AST Cancelled 67 H ALT Cancelled 40 Alkaline Phosphatase Cancelled 101 Ammonia Total Protein Cancelled 6.2 L Albumin Cancelled 2.6 L Prostate Specific Ag Cancelled Impressions: Chest X-Ray 02/16/17 00:00 IMPRESSION: NO ACUTE RADIOGRAPHIC FINDING IN THE CHEST. Paracentesis Ultrasound 02/17/17 22:19 IMPRESSION: Successful ultrasound-guided diagnostic paracentesis Abdomen/Pelvis CT 02/18/17 00:00 IMPRESSION: Intra-abdominal and pelvic ascitic fluid appear essentially unchanged. Fatty infiltration of the liver. 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
[2017-02-18] MEDS: LORAZEPAM INJ 2 MG/1 ML VIAL IV PRN (23:52)
[2017-02-19] MEDS: METHYLPREDNISOLONE INJ 40 MG/1 ML SDV IV SCH ×2 (05:17→21:54)
[2017-02-19 05:40] LABS: ABSOLUTE LYMPHOCYTES (AUTO) 0.6 10^3/uL (0.5-4.7); ABSOLUTE MONOCYTES (AUTO) 0.6 10^3/uL (0.1-1.4); ABSOLUTE NEUT (AUTO) 7.9 10^3/uL (1.7-8.2); BASOPHILS % (AUTO) 0.2 % (0-2); HEMATOCRIT 40.3 % (37.9-51.0); HEMOGLOBIN 14.2 g/dL (13.5-17.0); HGB HCT DIFFERENCE 2.3; LYMPHOCYTES % (AUTO) 6.1 % (13-45); MEAN CORPUSCULAR HEMOGLOBIN 37.1 pg (27.0-33.4); MEAN CORPUSCULAR HGB CONC 35.1 g/dL (32.0-36.0); MEAN CORPUSCULAR VOLUME 106 fl (80-97); MONOCYTES % (AUTO) 6.4 % (3-13); RED BLOOD COUNT 3.82 10^6/uL (4.35-5.55); SEGMENTED NEUTROPHILS % (AUTO) 87.3 % (42-78)
[2017-02-19 05:58] LABS: ALANINE AMINOTRANSFERASE 38 U/L (21-72); ALKALINE PHOSPHATASE 114 U/L (38-126); ANION GAP 7 (5-19); ASPARTATE AMINO TRANSFERASE 63 U/L (17-59); BILIRUBIN,DIRECT 2.5 mg/dL (0.0-0.4); BILIRUBIN,TOTAL 3.3 mg/dL (0.2-1.3); BLOOD UREA NITROGEN 16 mg/dL (7-20); CALCIUM 8.3 mg/dL (8.4-10.2); CARBON DIOXIDE 28 mmol/L (22-30); CHLORIDE 100 mmol/L (98-107); CREATININE RESULT 1.07 mg/dL (0.52-1.25); GLUCOSE 129 mg/dL (75-110); SODIUM 135.4 mmol/L (137-145); TOTAL PROTEIN 6.3 g/dL (6.3-8.2); WHITE BLOOD COUNT 9.1 10^3/uL (4.0-10.5)
[2017-02-19 06:09] LABS: ALBUMIN 2.8 g/dL (3.5-5.0)
[2017-02-19] MEDS: THIAMINE HCL 100 MG in NORMAL SALINE 50 ML IV SCH (09:57)
[2017-02-19] MEDS: LORAZEPAM INJ 2 MG/1 ML VIAL IV SCH ×2 (09:57→21:53)
[2017-02-19] MEDS ORDERED: NORMAL SALINE 1000 ML 1,000 ML IV PRN (11:47)
--- NOTE | 2017-02-19 11:48 | PDOC PROGRESS REPORT ---
Subjective Progress Note for:: 02/19/17 Subjective:: Patient was admitted for evaluation of acute liver failure from acute alcoholic hepatitis. Liver cirrhosis was suspected as a potential cause of the ascites, a CAT scan of the abdomen and pelvis with IV contrast was done, it showed normal -sized liver with fatty infiltration of the liver. I expected to see a small sized liver with nodular contour in liver cirrhosis. This makes me suspect or the etiology for the ascites including multiple myeloma, metastatic prostate cancer. He has enlarged prostate gland, PSA and bone scan is ordered. Patient' s wants patient to go to a [facility] home for rehabilitation Physical Exam Vital Signs: Temp Pulse Resp BP Pulse Ox 98.2 F 109 H 20 146/98 H 94 02/19/17 03:23 02/19/17 07:00 02/19/17 03:23 02/19/17 03:23 02/19/17 03:23 Intake & Output 02/18/17 02/19/17 02/20/17 06:59 06:59 06:59 Intake Total 1400 1525 Output Total 50 125 Balance 1350 1400 Weight 78.4 kg 78.2 kg General appearance: PRESENT: no acute distress Eye exam: PRESENT: PERRLA Respiratory exam: PRESENT: clear to auscultation hussein Cardiovascular exam: PRESENT: +S1, +S2 GI/Abdominal exam: PRESENT: soft Neurological exam: PRESENT: alert Results Laboratory Results: 02/19/17 05:19 02/19/17 05:19 02/18/17 02/18/17 02/18/17 14:05 14:05 15:18 WBC 3.8 L RBC 3.68 L Hgb 13.7 Hct 38.8 MCV 105 H MCH 37.3 H MCHC 35.4 RDW 14.0 Plt Count 100 L Seg Neutrophils % 83.0 H Lymphocytes % 10.7 L Monocytes % 6.2 Eosinophils % 0.0 Basophils % 0.1 Absolute Neutrophils 3.2 Absolute Lymphocytes 0.4 L Absolute Monocytes 0.2 Absolute Eosinophils 0.0 Absolute Basophils 0.0 Sodium Cancelled 131.7 L Potassium Cancelled 4.3 Chloride Cancelled 97 L Carbon Dioxide Cancelled 26 Anion Gap Cancelled 9 BUN Cancelled 16 Creatinine Cancelled 1.16 Est GFR ( Amer) Cancelled > 60 Est GFR (Non-Af Amer) Cancelled > 60 Glucose Cancelled 139 H Calcium Cancelled 8.0 L Total Bilirubin Cancelled 4.2 H AST Cancelled 67 H ALT Cancelled 40 Alkaline Phosphatase Cancelled 101 Total Protein Cancelled 6.2 L Albumin Cancelled 2.6 L Prostate Specific Ag Cancelled 02/19/17 02/19/17 05:19 05:19 WBC 9.1 D RBC 3.82 L Hgb 14.2 Hct 40.3 MCV 106 H MCH 37.1 H MCHC 35.1 RDW 14.0 Plt Count 91 L Seg Neutrophils % 87.3 H Lymphocytes % 6.1 L Monocytes % 6.4 Eosinophils % 0.0 Basophils % 0.2 Absolute Neutrophils 7.9 Absolute Lymphocytes 0.6 Absolute Monocytes 0.6 Absolute Eosinophils 0.0 Absolute Basophils 0.0 Sodium 135.4 L Potassium 4.0 Chloride 100 Carbon Dioxide 28 Anion Gap 7 BUN 16 Creatinine 1.07 Est GFR ( Amer) > 60 Est GFR (Non-Af Amer) > 60 Glucose 129 H Calcium 8.3 L Total Bilirubin 3.3 H AST 63 H ALT 38 Alkaline Phosphatase 114 Total Protein 6.3 Albumin 2.8 L Prostate Specific Ag Impressions: Chest X-Ray 02/16/17 00:00 IMPRESSION: NO ACUTE RADIOGRAPHIC FINDING IN THE CHEST. Paracentesis Ultrasound 02/17/17 22:19 IMPRESSION: Successful ultrasound-guided diagnostic paracentesis Abdomen/Pelvis CT 02/18/17 00:00 IMPRESSION: Intra-abdominal and pelvic ascitic fluid appear essentially unchanged. Fatty infiltration of the liver. Other findings as noted above Assessment & Plan - Diagnosis (1) Acute liver failure Qualifiers: Hepatic coma status: without hepatic coma Qualified Code(s): K72.00 - Acute and subacute hepatic failure without coma Is this a current diagnosis for this admission?: YesPlan: We reduce the dose of IV Solu-Medrol to 20 mg IV every 8 hour (2) Acute on chronic alcoholic liver disease Is this a current diagnosis for this admission?: Yes (3) Alcoholic cirrhosis of liver with ascites Is this a current diagnosis for this admission?: Yes (4) Enlarged prostate Is this a current diagnosis for this admission?: Yes (5) Ascites Qualifiers: Ascites type: other type Qualified Code(s): R18.8 - Other ascites Is this a current diagnosis for this admission?: YesPlan: Other potentia causes of ascites are being evaluated including multiple myeloma , malignant prostate cancer
[2017-02-19] MEDS ORDERED: METHYLPREDNISOLONE INJ 40 MG/1 ML SDV IV ONE (13:00)
[2017-02-19] MEDS: LORAZEPAM INJ 2 MG/1 ML VIAL IV PRN (13:06)
[2017-02-20] MEDS: METHYLPREDNISOLONE INJ 40 MG/1 ML SDV IV SCH (06:23)
[2017-02-20] MEDS ORDERED: METHYLPREDNISOLONE INJ 40 MG/1 ML SDV IV SCH (10:00)
[2017-02-20 10:23] LABS: ALANINE AMINOTRANSFERASE 41 U/L (21-72); ALBUMIN 3.3 g/dL (3.5-5.0); ALKALINE PHOSPHATASE 119 U/L (38-126); ANION GAP 11 (5-19); ASPARTATE AMINO TRANSFERASE 61 U/L (17-59); BILIRUBIN,DIRECT 2.2 mg/dL (0.0-0.4); BILIRUBIN,TOTAL 3.1 mg/dL (0.2-1.3); BLOOD UREA NITROGEN 17 mg/dL (7-20); CALCIUM 8.8 mg/dL (8.4-10.2); CARBON DIOXIDE 28 mmol/L (22-30); CHLORIDE 101 mmol/L (98-107); GLUCOSE 107 mg/dL (75-110); SODIUM 139.7 mmol/L (137-145); TOTAL PROTEIN 7.2 g/dL (6.3-8.2)
[2017-02-20] MEDS: LORAZEPAM INJ 2 MG/1 ML VIAL IV SCH ×2 (11:15→21:57)
[2017-02-20] MEDS: THIAMINE HCL 100 MG in NORMAL SALINE 50 ML IV SCH (11:16)
[2017-02-20 12:06] LABS: APPEARANCE,URINE CLEAR; BILIRUBIN,URINE NEGATIVE (NEGATIVE); GLUCOSE, URINE NEGATIVE (NEGATIVE); KETONES,URINE NEGATIVE (NEGATIVE); LEUKOCYTE ESTERASE,URINE NEGATIVE (NEGATIVE); NITRITE,URINE NEGATIVE (NEGATIVE); PROTEIN,URINE 30 mg/dL (NEGATIVE); URINE SPECIFIC GRAVITY 1.012
--- NOTE | 2017-02-20 12:56 | PDOC PROGRESS REPORT ---
Subjective Progress Note for:: 02/20/17 Subjective:: This is a 81-year-old male admitted from the elevated liver enzyme and possible alcoholic cirrhosis and the patient's still little confused but other than that denied any chest pain denied any abdominal pain Patient CT abdomen and pelvis was no acute finding Patient's INR was also elevated and the patient's ALT was elevated and the patient bilirubin is also elevated Physical Exam Vital Signs: Temp Pulse Resp BP Pulse Ox 97.9 F 114 H 18 126/65 H 97 02/20/17 11:11 02/20/17 11:11 02/20/17 11:11 02/20/17 11:11 02/20/17 11:11 Intake & Output 02/19/17 02/20/17 02/21/17 06:59 06:59 06:59 Intake Total 1525 680 300 Output Total 125 Balance 1400 680 300 Weight 78.2 kg 77.9 kg General appearance: PRESENT: no acute distress, well-developed, well-nourished Head exam: PRESENT: atraumatic, normocephalic Eye exam: PRESENT: conjunctiva pink, EOMI, PERRLA. ABSENT: scleral icterus Ear exam: PRESENT: normal external ear exam Mouth exam: PRESENT: moist, tongue midline Neck exam: PRESENT: full ROM. ABSENT: carotid bruit, JVD, lymphadenopathy, thyromegaly Respiratory exam: PRESENT: clear to auscultation hussein Cardiovascular exam: PRESENT: RRR. ABSENT: diastolic murmur, rubs, systolic murmur Pulses: PRESENT: normal dorsalis pedis pul, +2 pedal pulses bilateral Vascular exam: PRESENT: normal capillary refill GI/Abdominal exam: PRESENT: normal bowel sounds, soft. ABSENT: distended, guarding, mass, organolmegaly, rebound, tenderness Rectal exam: PRESENT: deferred Neurological exam: PRESENT: alert, awake. ABSENT: motor sensory deficit Psychiatric exam: PRESENT: appropriate affect, normal mood. ABSENT: homicidal ideation, suicidal ideation Skin exam: PRESENT: dry, intact, warm. ABSENT: cyanosis, rash Results Laboratory Results: 02/19/17 05:19 02/20/17 09:21 02/19/17 02/20/17 02/20/17 05:19 09:21 09:48 Sodium 139.7 Potassium 4.0 Chloride 101 Carbon Dioxide 28 Anion Gap 11 BUN 17 Creatinine 1.00 Est GFR ( Amer) > 60 Est GFR (Non-Af Amer) > 60 Glucose 107 Calcium 8.8 Total Bilirubin 3.1 H AST 61 H ALT 41 Alkaline Phosphatase 119 Total Protein Cancelled 7.2 Albumin Cancelled 3.3 L Urine Color YELLOW Urine Appearance CLEAR Urine pH 6.0 Ur Specific [place] 1.012 Urine Protein 30 H Urine Glucose (UA) NEGATIVE Urine Ketones NEGATIVE Urine Blood SMALL H Urine Nitrite NEGATIVE Ur Leukocyte Esterase NEGATIVE Urine WBC (Auto) 3 Urine RBC (Auto) 1 02/17/17 13:30 Thoracic Fluid Gram Stain - Final Impressions: Chest X-Ray 02/16/17 00:00 IMPRESSION: NO ACUTE RADIOGRAPHIC FINDING IN THE CHEST. Paracentesis Ultrasound 02/17/17 22:19 IMPRESSION: Successful ultrasound-guided diagnostic paracentesis Abdomen/Pelvis CT 02/18/17 00:00 IMPRESSION: Intra-abdominal and pelvic ascitic fluid appear essentially unchanged. Fatty infiltration of the liver. 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 Is this a current diagnosis for this admission?: YesPlan: Will continues to current medications (3) Ascites Qualifiers: Ascites type: other type Qualified Code(s): R18.8 - Other ascites Is this a current diagnosis for this admission?: YesPlan: Possible from the liver disease (4) Enlarged prostate Is this a current diagnosis for this admission?: YesPlan: We will put the patient on the Flomax and will wait for the PSA patient also scheduled for the bone scan (5) Alcohol dependence with other alcohol-induced disorder Is this a current diagnosis for this admission?: YesPlan: Continues to current protocol - Time Time Spent with patient: 15-24 minutes Medications reviewed and adjusted accordingly: Yes Anticipated discharge: SNF Within: Other - Inpatient Certification Medical Necessity: Need Close Monitoring Due to Risk of Patient Decompensation Post Hospital Care: D/C Emergency Response Officer Documentation - Plan Summary Plan Summary: Patient still confused possible underlying alcoholism will get the CT of the head and we also check the urine culture and consult the GI for further evaluations
--- NOTE | 2017-02-20 13:59 | RADIOLOGY REPORT (SQ) ---
EXAM DESCRIPTION: CT HEAD WITHOUT COMPLETED DATE/TIME: 02/20/2017 1:52 pm REASON FOR STUDY: ams COMPARISON: 02/26/2011 TECHNIQUE: Axial images acquired through the brain without intravenous contrast. Images reviewed wi th bone, brain and subdural windows. Images stored on PACS. All CT scanners at this facility use dose modulation, iterative reconstruction, and/or weight based d osing when appropriate to reduce radiation dose to as low as reasonably achievable (ALARA). [facility]: Dose Right [facility]: CareDose [facility]: Dose Right [facility]: Teradose 4D [facility]: Smart [employer] RADIATION DOSE: Up-to-date CT equipment and radiation dose reduction techniques were employed. CTDIv ol: 49.0 mGy. DLP: 881 mGy-cm.mGy. LIMITATIONS: None. FINDINGS: VENTRICLES: Prominent. CEREBRUM: No masses. No hemorrhage. No midline shift. Areas of low density in the white matter mos t likely due to chronic micro-vascular ischemic change. No evidence for acute infarction. CEREBELLUM: No masses. No hemorrhage. No alteration of density. No evidence for acute infarction. EXTRAAXIAL SPACES: Age-related involutional change. No fluid collections. No masses. ORBITS AND GLOBE: No intra- or extraconal masses. Normal contour of globe without masses. CALVARIUM: No fracture. PARANASAL SINUSES: No fluid or mucosal thickening. SOFT TISSUES: No mass or hematoma. OTHER: No other significant finding. IMPRESSION: CHRONIC CHANGES OF ATROPHY AND MICROVASCULAR ISCHEMIA. NO ACUTE PROCESS. TECHNICAL DOCUMENTATION: JOB ID: [id number] Quality ID # [id number]: Final reports with documentation of one or more dose reduction techniques (e.g., Au tomated exposure control, adjustment of the mA and/or kV according to patient size, use of iterative reconstruction technique) 2010 [employer]- All Rights Reserved
--- NOTE | 2017-02-20 19:38 | PDOC CONSULTATION ---
Consultation Consult Date: 02/20/17 History of Present Illness Admission Date/PCP: 02/16/17 16:47 History of Present Illness: This is an 81-year-old patient who was admitted directly to the hospital by Dr. Pandya with tachycardia and jaundice. History was obtained primarily from the patient's . He has been receiving Ativan while in the hospital to prevent alcohol withdrawal. According to the he has been sick for about a year. He has not been eating well and has lost at least 20 pounds in the last 1 year. He also complains of abdominal pain most of the time but no vomiting or diarrhea. His bowels move every day. He is an alcoholic and has drunk every day for decades. He has not been diagnosed with cirrhosis. On admission his bilirubin was 4.2 with a direct of 3 and AST of 67. Albumin was 2.6 with a PT of 20. He has had elevated LFTs at least since August 2015. His albumin and platelet count August of last year. Has been low since that time. CT of his abdomen on admission showed no hepatic lesions but he had ascites and gallstones. He had several 100 cc of fluid removed from his abdomen on 02/17/2017. Cell count and cytology was unremarkable but no fluid albumin was performed. He had an EGD performed by Dr. Jaeger in August and also in April 2016 and this showed gastritis and a large hiatal hernia. No varices was identified. According to the he also had a colonoscopy within the last year or 2 at an outside facility and as far as she knows this was unremarkable Past Medical History Cardiac Medical History: Reports: Coronary Artery Disease, DVT, Hypertension, Other - He has a history of deep vein thrombosis Pulmonary Medical History: Reports: Chronic Obstructive Pulmonary Disease (COPD) GI Medical History: Reports: Cirrhosis - 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, once kidney function improved CT scan Musculoskeltal Medical History: Reports: Arthritis Psychiatric Medical History: Reports: Alcohol Dependency, Depression Hematology: Denies: Anemia Social History Smoking Status: Never Smoker Frequency of Alcohol Use: Heavy Hx Recreational Drug Use: No Drugs: None Hx Prescription Drug Abuse: No Family History Family History: Reviewed & Not Pertinent Parental Family History Reviewed: No Children Family History Reviewed: NA Sibling(s) Family History Reviewed.: NA Medication/Allergy Home Medications: Amlodipine Besylate [Norvasc 2.5 mg Tablet] 2.5 mg PO DAILY 02/17/17 Atenolol [Tenormin] 25 mg PO Q12 02/17/17 Allergies/Adverse Reactions: No Known Allergies Allergy (Verified 11/04/16 11:46) Review of Systems ROS unobtainable: Due to mental status Physical Exam Vital Signs: Temp Pulse Resp BP Pulse Ox 97.9 F 114 H 18 126/65 H 97 02/20/17 11:11 02/20/17 11:11 02/20/17 11:11 02/20/17 11:11 02/20/17 11:11 Intake & Output 02/19/17 02/20/17 02/21/17 06:59 06:59 06:59 Intake Total 1525 680 500 Output Total 125 Balance 1400 680 500 Weight 78.2 kg 77.9 kg Exam: General: Patient very sleepy but does respond to some questions HEENT: There is no pallor but he is jaundice. PERRLA. Oropharynx normal Respiratory: No chest deformity. No respiratory distress. Chest wall palpitation was unremarkable. Breath sounds were normal Cardiovascular: Heart sounds 1 and 2 normal with no murmurs. Abdominal: Soft and nontender with obesity. He has distended superficial veins. Liver and spleen not palpable. No ascites demonstrated. Bowel sounds active. Rectal examination was deferred. Extremities: No edema Neurological: Not fully examined Skin: No significant rash Psychological: Normal affect Results Laboratory Results: 02/19/17 05:19 02/20/17 09:21 02/19/17 02/20/17 02/20/17 05:19 09:21 09:48 Sodium 139.7 Potassium 4.0 Chloride 101 Carbon Dioxide 28 Anion Gap 11 BUN 17 Creatinine 1.00 Est GFR ( Amer) > 60 Est GFR (Non-Af Amer) > 60 Glucose 107 Calcium 8.8 Total Bilirubin 3.1 H AST 61 H ALT 41 Alkaline Phosphatase 119 Total Protein Cancelled 7.2 Albumin Cancelled 3.3 L Urine Color YELLOW Urine Appearance CLEAR Urine pH 6.0 Ur Specific [place] 1.012 Urine Protein 30 H Urine Glucose (UA) NEGATIVE Urine Ketones NEGATIVE Urine Blood SMALL H Urine Nitrite NEGATIVE Ur Leukocyte Esterase NEGATIVE Urine WBC (Auto) 3 Urine RBC (Auto) 1 02/17/17 13:30 Thoracic Fluid Gram Stain - Final Impressions: Chest X-Ray 02/16/17 00:00 IMPRESSION: NO ACUTE RADIOGRAPHIC FINDING IN THE CHEST. Paracentesis Ultrasound 02/17/17 22:19 IMPRESSION: Successful ultrasound-guided diagnostic paracentesis Abdomen/Pelvis CT 02/18/17 00:00 IMPRESSION: Intra-abdominal and pelvic ascitic fluid appear essentially unchanged. Fatty infiltration of the liver. Other findings as noted above Head CT 02/20/17 00:00 IMPRESSION: CHRONIC CHANGES OF ATROPHY AND MICROVASCULAR ISCHEMIA. NO ACUTE PROCESS. Assessment & Plan - Diagnosis (1) Acute on chronic alcoholic liver disease Is this a current diagnosis for this admission?: YesPlan: I believe he has acute on chronic liver disease most likely cirrhosis. His LFTs have been abnormal for a while with hypoalbuminemia, coagulopathy and thrombocytopenia. He now has ascites but no varices noted in April of last year. I do not think he would benefit from his liver disease will benefit from steroids. We should continue conservative management for his complications including ascites and coagulopathy. I will start him on 50 mg of Aldactone in addition to vitamin K. Alcohol counseling was provided to the (2) Anorexia Is this a current diagnosis for this admission?: YesPlan: He has had a poor appetite for over a year and has lost weight. Hopefully as his clinical condition improves his appetite may improve. He may also benefit from an antidepressant (3) Abnormal liver function Is this a current diagnosis for this admission?: Yes (4) Acute liver failure Qualifiers: Hepatic coma status: without hepatic coma Qualified Code(s): K72.00 - Acute and subacute hepatic failure without coma Is this a current diagnosis for this admission?: Yes (5) Alcoholic cirrhosis of liver with ascites Is this a current diagnosis for this admission?: Yes (6) Ascites Qualifiers: Ascites type: other type Qualified Code(s): R18.8 - Other ascites Is this a current diagnosis for this admission?: Yes
[2017-02-21 06:05] LABS: ABSOLUTE LYMPHOCYTES (AUTO) 1.9 10^3/uL (0.5-4.7); ABSOLUTE MONOCYTES (AUTO) 0.9 10^3/uL (0.1-1.4); ABSOLUTE NEUT (AUTO) 4.7 10^3/uL (1.7-8.2); BASOPHILS % (AUTO) 0.1 % (0-2); EOSINOPHILS % (AUTO) 0.1 % (0-6); HEMOGLOBIN 15.6 g/dL (13.5-17.0); HGB HCT DIFFERENCE 0.8; LYMPHOCYTES % (AUTO) 25.5 % (13-45); MEAN CORPUSCULAR HGB CONC 33.9 g/dL (32.0-36.0); MEAN CORPUSCULAR VOLUME 109 fl (80-97); MONOCYTES % (AUTO) 11.6 % (3-13); RED BLOOD COUNT 4.22 10^6/uL (4.35-5.55); RED CELL DISTRIBUTION WIDTH 14.1 % (11.5-14.0); SEGMENTED NEUTROPHILS % (AUTO) 62.7 % (42-78); WHITE BLOOD COUNT 7.6 10^3/uL (4.0-10.5)
[2017-02-21 06:17] LABS: ALANINE AMINOTRANSFERASE 40 U/L (21-72); ALBUMIN 3.4 g/dL (3.5-5.0); ALKALINE PHOSPHATASE 121 U/L (38-126); ANION GAP 12 (5-19); ASPARTATE AMINO TRANSFERASE 74 U/L (17-59); BILIRUBIN,DIRECT 2.2 mg/dL (0.0-0.4); BILIRUBIN,TOTAL 3.5 mg/dL (0.2-1.3); BLOOD UREA NITROGEN 18 mg/dL (7-20); CALCIUM 8.5 mg/dL (8.4-10.2); CARBON DIOXIDE 28 mmol/L (22-30); CHLORIDE 100 mmol/L (98-107); CREATININE RESULT 1.03 mg/dL (0.52-1.25); GLUCOSE 67 mg/dL (75-110); POTASSIUM 3.5 mmol/L (3.6-5.0); SODIUM 140.2 mmol/L (137-145); TOTAL PROTEIN 7.3 g/dL (6.3-8.2)
[2017-02-21] MEDS: PHYTONADIONE 5 MG TABLET PO SCH (11:25)
[2017-02-21] MEDS: SPIRONOLACTONE 25 MG TABLET PO SCH (11:26)
[2017-02-21] MEDS: THIAMINE HCL 100 MG in NORMAL SALINE 50 ML IV SCH (11:30)
--- NOTE | 2017-02-21 12:03 | PDOC PROGRESS REPORT ---
Subjective Progress Note for:: 02/21/17 Subjective:: Patient is currently doing fair. Patient's seen by the GI and suggest most likely alcoholic liver disease.Very extensive discussions with the in the room regarding the patient's current conditions and patients refused for the bone scan willing to try again tomorrow and probably try to send the patient to the rehab Physical Exam Vital Signs: Temp Pulse Resp BP Pulse Ox 97.4 F 35 L 19 153/111 H 85 L 02/21/17 08:44 02/21/17 08:44 02/21/17 08:44 02/21/17 08:44 02/21/17 08:44 Intake & Output 02/20/17 02/21/17 02/22/17 06:59 06:59 06:59 Intake Total 680 585 Balance 680 585 Weight 77.9 kg 83.6 kg General appearance: PRESENT: no acute distress, well-developed, well-nourished Head exam: PRESENT: atraumatic, normocephalic Eye exam: PRESENT: conjunctiva pink, EOMI, PERRLA. ABSENT: scleral icterus Ear exam: PRESENT: normal external ear exam Mouth exam: PRESENT: moist, tongue midline Neck exam: PRESENT: full ROM. ABSENT: carotid bruit, JVD, lymphadenopathy, thyromegaly Respiratory exam: PRESENT: clear to auscultation hussein Cardiovascular exam: PRESENT: RRR. ABSENT: diastolic murmur, rubs, systolic murmur Pulses: PRESENT: normal dorsalis pedis pul, +2 pedal pulses bilateral Vascular exam: PRESENT: normal capillary refill GI/Abdominal exam: PRESENT: normal bowel sounds, soft. ABSENT: distended, guarding, mass, organolmegaly, rebound, tenderness Rectal exam: PRESENT: deferred Neurological exam: PRESENT: alert, awake, oriented to place. ABSENT: motor sensory deficit Psychiatric exam: PRESENT: appropriate affect, normal mood. ABSENT: homicidal ideation, suicidal ideation Skin exam: PRESENT: dry, intact, warm. ABSENT: cyanosis, rash Results Laboratory Results: 02/21/17 05:00 02/21/17 05:00 02/20/17 02/21/17 02/21/17 09:48 05:00 05:00 WBC 7.6 RBC 4.22 L Hgb 15.6 Hct 46.0 MCV 109 H MCH 37.0 H MCHC 33.9 RDW 14.1 H Plt Count 103 L Seg Neutrophils % 62.7 Lymphocytes % 25.5 Monocytes % 11.6 Eosinophils % 0.1 Basophils % 0.1 Absolute Neutrophils 4.7 Absolute Lymphocytes 1.9 Absolute Monocytes 0.9 Absolute Eosinophils 0.0 Absolute Basophils 0.0 Sodium 140.2 Potassium 3.5 L Chloride 100 Carbon Dioxide 28 Anion Gap 12 BUN 18 Creatinine 1.03 Est GFR ( Amer) > 60 Est GFR (Non-Af Amer) > 60 Glucose 67 L Calcium 8.5 Total Bilirubin 3.5 H AST 74 H ALT 40 Alkaline Phosphatase 121 Total Protein 7.3 Albumin 3.4 L Urine Color YELLOW Urine Appearance CLEAR Urine pH 6.0 Ur Specific [place] 1.012 Urine Protein 30 H Urine Glucose (UA) NEGATIVE Urine Ketones NEGATIVE Urine Blood SMALL H Urine Nitrite NEGATIVE Ur Leukocyte Esterase NEGATIVE Urine WBC (Auto) 3 Urine RBC (Auto) 1 02/17/17 13:30 Thoracic Fluid Fungal Smear - Final 02/17/17 13:30 Thoracic Fluid Fungal Smear - Final 02/17/17 13:30 Thoracic Fluid Fungal Smear - Final 02/17/17 13:30 Thoracic Fluid Gram Stain - Final 02/17/17 13:30 Thoracic Fluid Body Fluid Culture - Final NO AEROBIC OR ANAEROBIC ORGANISMS RECOVERED Impressions: Chest X-Ray 02/16/17 00:00 IMPRESSION: NO ACUTE RADIOGRAPHIC FINDING IN THE CHEST. Paracentesis Ultrasound 02/17/17 22:19 IMPRESSION: Successful ultrasound-guided diagnostic paracentesis Abdomen/Pelvis CT 02/18/17 00:00 IMPRESSION: Intra-abdominal and pelvic ascitic fluid appear essentially unchanged. Fatty infiltration of the liver. Other findings as noted above Head CT 02/20/17 00:00 IMPRESSION: CHRONIC CHANGES OF ATROPHY AND MICROVASCULAR ISCHEMIA. NO ACUTE PROCESS. Assessment & Plan - Diagnosis (1) Acute liver failure Qualifiers: Hepatic coma status: without hepatic coma Qualified Code(s): K72.00 - Acute and subacute hepatic failure without coma Is this a current diagnosis for this admission?: YesPlan: Patient is currently doing fair continues to current medication (2) Acute on chronic alcoholic liver disease Is this a current diagnosis for this admission?: YesPlan: Will continues to current medications (3) Ascites Qualifiers: Ascites type: other type Qualified Code(s): R18.8 - Other ascites Is this a current diagnosis for this admission?: YesPlan: Possible from the liver disease (4) Enlarged prostate Is this a current diagnosis for this admission?: YesPlan: We will put the patient on the Flomax and will wait for the PSA patient also scheduled for the bone scan (5) Alcohol dependence with other alcohol-induced disorder Is this a current diagnosis for this admission?: YesPlan: Continues to current protocol - Time Time Spent with patient: 15-24 minutes Medications reviewed and adjusted accordingly: Yes Anticipated discharge: SNF Within: Other - Inpatient Certification Medical Necessity: Need Close Monitoring Due to Risk of Patient Decompensation Post Hospital Care: D/C Repairer Pump Documentation - Plan Summary Plan Summary: Very extensive discussions with the in the room regarding the patient's current conditions with the liver disease and alcoholism and the preferred to go to the patient's to the rehab facilityConsult the estate planner
[2017-02-21] MEDS: LORAZEPAM INJ 2 MG/1 ML VIAL IV SCH (12:28)
[2017-02-21] MEDS ORDERED: POTASSIUM CHLORIDE 10 MEQ TABLET.SA PO ONE (13:10)
--- NOTE | 2017-02-21 14:19 | RADIOLOGY REPORT (SQ) ---
EXAM DESCRIPTION: CT CHEST WITHOUT COMPLETED DATE/TIME: 02/21/2017 1:47 pm REASON FOR STUDY: cough/r/o met disease COMPARISON: None. TECHNIQUE: CT scan performed of the chest without intravenous contrast. Images reviewed with lung, soft tissue and bone windows. Reconstructed coronal and sagittal MPR images reviewed. All images st ored on PACS. All CT scanners at this facility use dose modulation, iterative reconstruction, and/or weight based d osing when appropriate to reduce radiation dose to as low as reasonably achievable (ALARA). [facility]: Dose Right [facility]: CareDose [facility]: Dose Right [facility]: Teradose 4D [facility]: Smart [employer] RADIATION DOSE: Up-to-date CT equipment and radiation dose reduction techniques were employed. CTDIv ol: 15.5 mGy. DLP: 564 mGy-cm. mGy. LIMITATIONS: No technical limitations. FINDINGS: LUNGS AND PLEURA: Moderate left pleural effusion. Pleural/ parenchymal scarring in the le ft base the 15 mm nodule cannot be ruled out the left posterior costophrenic sulcus. HILAR AND MEDIASTINAL STRUCTURES: No identified masses or abnormal nodes. No obvious aneurysm. HEART AND VASCULAR STRUCTURES: No aneurysm. No pericardial effusion. UPPER ABDOMEN: Ascites. The liver is small slightly lobulated. THYROID AND OTHER SOFT TISSUES: No masses. No adenopathy. BONES: There are bridging osteophytes in the mid to lower thoracic spine. Degenerative disc disease and spondylosis are seen in the upper thoracic spine. No metastatic lesions are seen. HARDWARE: None in the chest. OTHER: No other significant findings. IMPRESSION: 1. Left pleural effusion. 2. Possible 15 mm nodule in the left posterior costophrenic sulcus. Consider CT imaging in the pron e position. Consider PET-CT. 3. Ascites. Cirrhosis. 4. Degenerative changes in the thoracic spine. TECHNICAL DOCUMENTATION: JOB ID: [id number] Quality ID # [id number]: Final reports with documentation of one or more dose reduction techniques (e.g., Au tomated exposure control, adjustment of the mA and/or kV according to patient size, use of iterative reconstruction technique) 2010 [employer]- All Rights Reserved
[2017-02-21 14:40] LABS: ALBUMIN 3 2.7 g/dL (2.9-4.4); ALPHA-1-GLOBULIN 0.2 g/dL (0.0-0.4); ALPHA-2-GLOBULIN 3 0.4 g/dL (0.4-1.0); BETA GLOBULIN 0.8 g/dL (0.7-1.3); GLOBULIN TTL 2.8 g/dL (2.2-3.9); IMMUNOGLOBULIN A 545 mg/dL (61-437); IMMUNOGLOBULIN G 1272 mg/dL (700-1600); IMMUNOGLOBULIN M 210 mg/dL (15-143); MONOCLONAL-SPIKE Not Observed g/dL (Not Observed); PROTEIN TOTAL SERUM 5.5 g/dL (6.0-8.5)
[2017-02-21] MEDS ORDERED: IPRATROPIUM/ALBUTEROL 0.5-2.5 MG/3 ML AMPUL NEB PRN (14:41)
[2017-02-21] MEDS: CEFTRIAXONE 1 GM/D5W RTU 1 GM/50 ML RTUPB IV SCH (16:23)
[2017-02-22 09:09] LABS: ABSOLUTE EOSINOPHILS # (AUTO) 0.1 10^3/uL (0.0-0.6); ABSOLUTE LYMPHOCYTES (AUTO) 1.6 10^3/uL (0.5-4.7); ABSOLUTE MONOCYTES (AUTO) 0.7 10^3/uL (0.1-1.4); ABSOLUTE NEUT (AUTO) 2.7 10^3/uL (1.7-8.2); BASOPHILS % (AUTO) 0.4 % (0-2); EOSINOPHILS % (AUTO) 1.1 % (0-6); HEMATOCRIT 45.7 % (37.9-51.0); HEMOGLOBIN 15.6 g/dL (13.5-17.0); HGB HCT DIFFERENCE 1.1; LYMPHOCYTES % (AUTO) 31.6 % (13-45); MEAN CORPUSCULAR HEMOGLOBIN 36.8 pg (27.0-33.4); MEAN CORPUSCULAR HGB CONC 34.1 g/dL (32.0-36.0); MEAN CORPUSCULAR VOLUME 108 fl (80-97); MONOCYTES % (AUTO) 13.1 % (3-13); RED BLOOD COUNT 4.23 10^6/uL (4.35-5.55); RED CELL DISTRIBUTION WIDTH 14.3 % (11.5-14.0); SEGMENTED NEUTROPHILS % (AUTO) 53.8 % (42-78); WHITE BLOOD COUNT 5.1 10^3/uL (4.0-10.5)
[2017-02-22] MEDS: SPIRONOLACTONE 25 MG TABLET PO SCH (09:55)
[2017-02-22] MEDS: PHYTONADIONE 5 MG TABLET PO SCH (09:57)
[2017-02-22] MEDS: THIAMINE HCL 100 MG in NORMAL SALINE 50 ML IV SCH (09:57)
[2017-02-22 10:14] LABS: ANION GAP 10 (5-19); BLOOD UREA NITROGEN 19 mg/dL (7-20); CARBON DIOXIDE 27 mmol/L (22-30); CHLORIDE 102 mmol/L (98-107); CREATININE RESULT 1.05 mg/dL (0.52-1.25); GLUCOSE 78 mg/dL (75-110); POTASSIUM 4.3 mmol/L (3.6-5.0); SODIUM 139.1 mmol/L (137-145)
[2017-02-22] MEDS ORDERED: LORAZEPAM 0.5 MG TABLET PO PRN (12:15)
--- NOTE | 2017-02-22 13:22 | PDOC PROGRESS REPORT ---
Subjective Progress Note for:: 02/22/17 Subjective:: . Patient have a CT of the chest done with so some 15 mm nodulesPatient is currently doing fair. Moderate left-sided pleural effusions. Patient's denied any chest pain denied any shortness of the breath Physical Exam Vital Signs: Temp Pulse Resp BP Pulse Ox 97.8 F 116 H 17 165/103 H 96 02/22/17 11:30 02/22/17 11:30 02/22/17 11:30 02/22/17 11:30 02/22/17 11:30 Intake & Output 02/21/17 02/22/17 02/23/17 06:59 06:59 06:59 Intake Total 585 300 0 Balance 585 300 0 Weight 83.6 kg 87.5 kg General appearance: PRESENT: no acute distress, well-developed, well-nourished Head exam: PRESENT: atraumatic, normocephalic Eye exam: PRESENT: conjunctiva pink, EOMI, PERRLA. ABSENT: scleral icterus Ear exam: PRESENT: normal external ear exam Mouth exam: PRESENT: moist, tongue midline Neck exam: PRESENT: full ROM. ABSENT: carotid bruit, JVD, lymphadenopathy, thyromegaly Respiratory exam: PRESENT: clear to auscultation hussein Cardiovascular exam: PRESENT: RRR. ABSENT: diastolic murmur, rubs, systolic murmur Pulses: PRESENT: normal dorsalis pedis pul, +2 pedal pulses bilateral Vascular exam: PRESENT: normal capillary refill GI/Abdominal exam: PRESENT: normal bowel sounds, soft. ABSENT: distended, guarding, mass, organolmegaly, rebound, tenderness Rectal exam: PRESENT: deferred Neurological exam: PRESENT: alert, awake, oriented to person. ABSENT: motor sensory deficit Psychiatric exam: PRESENT: appropriate affect, normal mood. ABSENT: homicidal ideation, suicidal ideation Skin exam: PRESENT: dry, intact, warm. ABSENT: cyanosis, rash Results Laboratory Results: 02/22/17 08:36 02/22/17 08:38 02/19/17 02/22/17 02/22/17 12:24 08:36 08:38 WBC 5.1 RBC 4.23 L Hgb 15.6 Hct 45.7 MCV 108 H MCH 36.8 H MCHC 34.1 RDW 14.3 H Plt Count 94 L Seg Neutrophils % 53.8 Lymphocytes % 31.6 Monocytes % 13.1 H Eosinophils % 1.1 Basophils % 0.4 Absolute Neutrophils 2.7 Absolute Lymphocytes 1.6 Absolute Monocytes 0.7 Absolute Eosinophils 0.1 Absolute Basophils 0.0 Sodium 139.1 Potassium 4.3 Chloride 102 Carbon Dioxide 27 Anion Gap 10 BUN 19 Creatinine 1.05 Est GFR ( Amer) > 60 Est GFR (Non-Af Amer) > 60 Glucose 78 Calcium 9.0 Total Protein 5.5 L Albumin 2.7 L 02/17/17 13:30 Thoracic Fluid Fungal Smear - Final 02/17/17 13:30 Thoracic Fluid Fungal Smear - Final 02/17/17 13:30 Thoracic Fluid Fungal Smear - Final Impressions: Chest X-Ray 02/16/17 00:00 IMPRESSION: NO ACUTE RADIOGRAPHIC FINDING IN THE CHEST. Paracentesis Ultrasound 02/17/17 22:19 IMPRESSION: Successful ultrasound-guided diagnostic paracentesis Abdomen/Pelvis CT 02/18/17 00:00 IMPRESSION: Intra-abdominal and pelvic ascitic fluid appear essentially unchanged. Fatty infiltration of the liver. Other findings as noted above Head CT 02/20/17 00:00 IMPRESSION: CHRONIC CHANGES OF ATROPHY AND MICROVASCULAR ISCHEMIA. NO ACUTE PROCESS. Chest CT 02/21/17 00:00 IMPRESSION: 1. Left pleural effusion. 2. Possible 15 mm nodule in the left posterior costophrenic sulcus. Consider CT imaging in the prone position. Consider PET-CT. 3. Ascites. Cirrhosis. 4. Degenerative changes in the thoracic spine. 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 Is this a current diagnosis for this admission?: Yes Plan: Will continues to current medications (3) Ascites Qualifiers: Ascites type: other type Qualified Code(s): R18.8 - Other ascites Is this a current diagnosis for this admission?: Yes Plan: Possible from the liver disease (4) Enlarged prostate Is this a current diagnosis for this admission?: Yes Plan: We will put the patient on the Flomax and will wait for the PSA patient also scheduled for the bone scan (5) Alcohol dependence with other alcohol-induced disorder Is this a current diagnosis for this admission?: Yes Plan: Continues to current protocol (6) Pulmonary nodule Is this a current diagnosis for this admission?: Yes Plan: Patients probably need a PET scans for further evaluations with consult the pulmonary (7) Pleural effusion Is this a current diagnosis for this admission?: Yes Plan: Is scheduled for thoracocentesis - Time Time Spent with patient: 15-24 minutes Medications reviewed and adjusted accordingly: Yes Anticipated discharge: SNF Within: Other - Inpatient Certification Medical Necessity: Need Close Monitoring Due to Risk of Patient Decompensation Post Hospital Care: D/C [employer] Documentation - Plan Summary Plan Summary: Discussed with the about the patient's current conditions
--- NOTE | 2017-02-22 14:10 | RADIOLOGY REPORT (SQ) ---
EXAM DESCRIPTION: CHEST SINGLE VIEW COMPLETED DATE/TIME: 02/22/2017 2:02 pm REASON FOR STUDY: suspected aspiration COMPARISON: Chest films 02/16/2017 CT chest 02/21/2017 EXAM PARAMETERS: NUMBER OF VIEWS: One view. TECHNIQUE: Single frontal radiographic view of the chest acquired. RADIATION DOSE: NA LIMITATIONS: None. FINDINGS: LUNGS AND PLEURA: No opacities, masses or pneumothorax. No pleural effusion. MEDIASTINUM AND HILAR STRUCTURES: No masses. Contour normal. HEART AND VASCULAR STRUCTURES: Heart normal in size. Normal vasculature. BONES: No acute findings. HARDWARE: None in the chest. OTHER: No other significant finding. IMPRESSION: NO ACUTE RADIOGRAPHIC FINDING IN THE CHEST. TECHNICAL DOCUMENTATION: JOB ID: [id number]
--- NOTE | 2017-02-22 14:12 | RADIOLOGY REPORT (SQ) ---
EXAM DESCRIPTION: U/S CHEST COMPLETED DATE/TIME: 02/22/2017 2:01 pm REASON FOR STUDY: lt side peulreal effusion COMPARISON: Chest CT 02/21/2017 TECHNIQUE: Ultrasound of the right and left chest was performed to evaluate pleural effusions. LIMITATIONS: None. FINDINGS: No right pleural effusion. Trace fluid under the right hemidiaphragm adjacent to a nodula r cirrhotic liver. There is trace pleural fluid in the left posterior costophrenic sulcus. This would not be enough to safely access for thoracentesis. IMPRESSION: No thoracentesis performed. Trace ascites under the right hemidiaphragm. Trace left pl eural effusion. TECHNICAL DOCUMENTATION: JOB ID: [id number] [employer]- All Rights Reserved
[2017-02-22] MEDS: CEFTRIAXONE 1 GM/D5W RTU 1 GM/50 ML RTUPB IV SCH (16:56)
[2017-02-23 07:23] LABS: PROSTATE SPECIFIC ANTIGEN 10.5 ng/mL (0.0-4.0); PSA % FREE 40.5 % (.); PSA FREE 4.25 ng/mL
[2017-02-23 07:34] LABS: ANION GAP 7 (5-19); BLOOD UREA NITROGEN 19 mg/dL (7-20); CALCIUM 8.8 mg/dL (8.4-10.2); CARBON DIOXIDE 30 mmol/L (22-30); CHLORIDE 102 mmol/L (98-107); CREATININE RESULT 1.01 mg/dL (0.52-1.25); GLUCOSE 89 mg/dL (75-110); POTASSIUM 4.7 mmol/L (3.6-5.0); SODIUM 139.3 mmol/L (137-145)
[2017-02-23] MEDS: SPIRONOLACTONE 25 MG TABLET PO SCH (09:20)
[2017-02-23] MEDS: PHYTONADIONE 5 MG TABLET PO SCH (09:20)
[2017-02-23] MEDS ORDERED: (PENDING PHARMACY ID) (Atenolol [Tenormin] 25 MG) PO SCH (10:00)
[2017-02-23] MEDS ORDERED: ATENOLOL 50 MG TABLET PO SCH (10:00)
[2017-02-23] MEDS ORDERED: THIAMINE HCL 100 MG TABLET PO SCH (10:00)
[2017-02-23] MEDS ORDERED: AMLODIPINE BESYLATE 2.5 MG TABLET PO SCH (10:00)
--- NOTE | 2017-02-23 13:39 | PDOC TRANSFER SUMMARY ---
General - Admit/Disc Date/PCP Admission Date/Primary Care Provider: 02/16/17 16:47 Discharge Date: 02/23/17 - Discharge Diagnosis (1) Acute liver failure Is this a current diagnosis for this admission?: Yes Summary: Currently all stable follow with Dr. 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 Ivan (7) Pleural effusion Is this a current diagnosis for this admission?: Yes Summary: Currently all resolved - Additional Information Discharge Diet: Cardiac Discharge Activity: Activity As Tolerated Home Medications: Amlodipine Besylate [Norvasc 2.5 mg Tablet] 2.5 mg PO DAILY 02/17/17 Atenolol [Tenormin] 25 mg PO Q12 02/17/17 Ipratropium/Albuterol Sulfate [Duoneb 3 ml Ampul] 3 ml NEB RTQ6HP PRN #120 vial.neb 02/23/17 Lorazepam [Ativan 0.5 mg Tablet] 0.5 mg PO Q6HP PRN #30 tablet 02/23/17 Phytonadione [Mephyton 5 mg Tablet] 5 mg PO DAILY #30 tablet 02/23/17 Spironolactone [Aldactone 25 mg Tablet] 50 mg PO DAILY #30 tablet 02/23/17 Thiamine HCl [Thiamine 100 mg Tablet] 100 mg PO DAILY #30 tablet 02/23/17 History of Present Illness Admission Date/PCP: 02/16/17 16:47 History of Present Illness: This is an 81-year-old patient who was admitted directly to the hospital by Dr. Pandya with tachycardia and jaundice. History was obtained primarily from the patient's . He has been receiving Ativan while in the hospital to prevent alcohol withdrawal. According to the he has been sick for about a year. He has not been eating well and has lost at least 20 pounds in the last 1 year. He also complains of abdominal pain most of the time but no vomiting or diarrhea. His bowels move every day. He is an alcoholic and has drunk every day for decades. He has not been diagnosed with cirrhosis. On admission his bilirubin was 4.2 with a direct of 3 and AST of 67. Albumin was 2.6 with a PT of 20. He has had elevated LFTs at least since August 2015. His albumin and platelet count August of last year. Has been low since that time. CT of his abdomen on admission showed no hepatic lesions but he had ascites and gallstones. He had several 100 cc of fluid removed from his abdomen on 02/17/2017. Cell count and cytology was unremarkable but no fluid albumin was performed. He had an EGD performed by Dr. Jaeger in August and also in April 2016 and this showed gastritis and a large hiatal hernia. No varices was identified. According to the he also had a colonoscopy within the last year or 2 at an outside facility and as far as she knows this was unremarkable Hospital Course Hospital Course: This is a 81-year-old male admitted in the hospital for the ascites and multiple other comorbidity including the acute liver disease with alcoholic hepatitisAnd the alcoholismAnd the patient underwent for the alcohol withdrawal protocol and a several test including a CT abdomen and pelvisCT of the chest Patient underwent for the paracentesis Patients also have a pulmonary nodules and elevated PSA and patients require a PET scan as outpatient Patient's also seen by Dr. Abbott and adjust the medications Patient otherwise remained stable patient was stepped on the Lorazepam and now only use the as needed Very extensive discussions with the patient's regarding the patient's current conditions and the need to further follow to rule out any malignancy and need a PET scanAnd also ongoing liver disease and follow with the Dr. Abbott as outpatient Patients at this point is very weak need a fall precautions and aspiration precautions and the patient discharged to the rehab and the patient's follow the plan Overall patient's prognosis is not good and the understand very well Will see how the patient's dusted in the rehabs and the will want to wait for another weeks and do the further testings Physical Exam Vital Signs: Temp Pulse Resp BP Pulse Ox 97.5 F 96 19 157/101 H 96 02/23/17 11:26 02/23/17 11:26 02/23/17 11:26 02/23/17 11:26 02/23/17 11:26 Intake & Output 02/22/17 02/23/17 02/24/17 06:59 06:59 06:59 Intake Total 300 698 0 Balance 300 698 0 Weight 87.5 kg 87.3 kg General appearance: PRESENT: no acute distress Head exam: PRESENT: atraumatic, normocephalic Eye exam: PRESENT: conjunctiva pink, EOMI, PERRLA. ABSENT: scleral icterus Ear exam: PRESENT: normal external ear exam Mouth exam: PRESENT: moist, tongue midline Neck exam: ABSENT: carotid bruit, JVD, lymphadenopathy, thyromegaly Respiratory exam: PRESENT: clear to auscultation hussein. ABSENT: rales, rhonchi, wheezes Cardiovascular exam: PRESENT: RRR. ABSENT: diastolic murmur, rubs, systolic murmur Pulses: PRESENT: normal dorsalis pedis pul Vascular exam: PRESENT: normal capillary refill GI/Abdominal exam: PRESENT: normal bowel sounds, soft. ABSENT: distended, guarding, mass, organolmegaly, rebound, tenderness Rectal exam: PRESENT: deferred Extremities exam: PRESENT: full ROM. ABSENT: calf tenderness, clubbing, pedal edema Neurological exam: PRESENT: alert, awake, oriented to person, oriented to place , oriented to time, oriented to situation. ABSENT: motor sensory deficit Psychiatric exam: PRESENT: appropriate affect, normal mood. ABSENT: homicidal ideation, suicidal ideation Skin exam: PRESENT: dry, intact, warm. ABSENT: cyanosis, rash Results Laboratory Results: 02/22/17 08:36 02/23/17 07:08 02/21/17 02/23/17 15:34 07:08 Sodium 139.3 Potassium 4.7 Chloride 102 Carbon Dioxide 30 Anion Gap 7 BUN 19 Creatinine 1.01 Est GFR ( Amer) > 60 Est GFR (Non-Af Amer) > 60 Glucose 89 Calcium 8.8 Prostate Specific Ag 10.5 H Free PSA 4.25 % Free PSA 40.5 Impressions: Paracentesis Ultrasound 02/17/17 22:19 IMPRESSION: Successful ultrasound-guided diagnostic paracentesis Abdomen/Pelvis CT 02/18/17 00:00 IMPRESSION: Intra-abdominal and pelvic ascitic fluid appear essentially unchanged. Fatty infiltration of the liver. Other findings as noted above Head CT 02/20/17 00:00 IMPRESSION: CHRONIC CHANGES OF ATROPHY AND MICROVASCULAR ISCHEMIA. NO ACUTE PROCESS. Chest CT 02/21/17 00:00 IMPRESSION: 1. Left pleural effusion. 2. Possible 15 mm nodule in the left posterior costophrenic sulcus. Consider CT imaging in the prone position. Consider PET-CT. 3. Ascites. Cirrhosis. 4. Degenerative changes in the thoracic spine. Chest X-Ray 02/22/17 00:00 IMPRESSION: NO ACUTE RADIOGRAPHIC FINDING IN THE CHEST. Chest Ultrasound 02/22/17 14:40 IMPRESSION: No thoracentesis performed. Trace ascites under the right hemidiaphragm. Trace left pleural effusion. Transfer Plan - Time Spent with Patient Time spent with patient: Greater than 30 Minutes Plan Time Spent: Greater than 30 Minutes - Patient's discharge to the rehab and also fall precaution and aspirations precautions Check a CBC and Chem-7 and LFT in 1 week Follow with the doctor Marzena and follow with the Dr. Abbott
[2017-02-23] MEDS ORDERED: LORAZEPAM 0.5 MG TABLET PO PRN (15:00)
[2017-02-23 15:40] VITALS: BP 153/91
--- NOTE | 2017-02-23 16:28 | PDOC CONSULTATION ---
Consultation Consult Date: 02/23/17 Attending physician:: EMERALD TAPIA Consult reason:: Dyspnea/pleural effusion History of Present Illness Admission Date/PCP: 02/16/17 16:47 History of Present Illness: This is an 81-year-old patient admitted to the hospital for weakness ascites scleral icterus per family he is a profound use of alcohol he denies shortness of breath there is some dips and exertion he occasionally coughs but he denies any productive phlegm or hemoptysis his PPD was negative but is uncertain of the date he denies any history of chronic lung disease as a child or adolescent. 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 He has no pets denies any recent travel he denies angina-like chest pain sleeps on one pillow occasional PND no nocturnal cough and occasional edema is unaware of any snoring denies restless sleep unrestful sleep he admits to some nocturia as well as some daytime somnolence. Past Medical History Cardiac Medical History: Reports: Coronary Artery Disease, DVT, Hypertension, Other - He has a history of deep vein thrombosis Pulmonary Medical History: Reports: Chronic Obstructive Pulmonary Disease (COPD) GI Medical History: Reports: Cirrhosis - 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, once kidney function improved CT scan Musculoskeltal Medical History: Reports: Arthritis Psychiatric Medical History: Reports: Alcohol Dependency, Depression Hematology: Denies: Anemia Social History Information Source: Patient, Relative, [facility] Records Lives with: Alone Smoking Status: Former Smoker Passive smoke exposure as: Both Frequency of Alcohol Use: Heavy Hx Recreational Drug Use: No Drugs: None Hx Prescription Drug Abuse: No Do you have pets?: No Have you had any respiratory illnesses as a child?: No Have you been exposed to any sick contacts recently?: No Have you had any recent respiratory illnesses?: No Have you travelled outside of [place] in the past 12 months?: No Family History Family History: Reviewed & Not Pertinent Parental Family History Reviewed: Yes Children Family History Reviewed: Yes Sibling(s) Family History Reviewed.: Yes Medication/Allergy Home Medications: Amlodipine Besylate [Norvasc 2.5 mg Tablet] 2.5 mg PO DAILY 02/17/17 Atenolol [Tenormin] 25 mg PO Q12 02/17/17 Ipratropium/Albuterol Sulfate [Duoneb 3 ml Ampul] 3 ml NEB RTQ6HP PRN #120 vial.neb 02/23/17 Lorazepam [Ativan 0.5 mg Tablet] 0.5 mg PO Q6HP PRN #30 tablet 02/23/17 Phytonadione [Mephyton 5 mg Tablet] 5 mg PO DAILY #30 tablet 02/23/17 Spironolactone [Aldactone 25 mg Tablet] 50 mg PO DAILY #30 tablet 02/23/17 Thiamine HCl [Thiamine 100 mg Tablet] 100 mg PO DAILY #30 tablet 02/23/17 Allergies/Adverse Reactions: No Known Allergies Allergy (Verified 11/04/16 11:46) Review of Systems All systems: reviewed and no additional remarkable complaints except as stated Physical Exam Vital Signs: Temp Pulse Resp BP Pulse Ox 97.6 F 72 18 168/108 H 100 02/23/17 07:32 02/23/17 07:32 02/23/17 07:32 02/23/17 07:32 02/23/17 07:32 Intake & Output 02/22/17 02/23/17 02/24/17 06:59 06:59 06:59 Intake Total 300 698 Balance 300 698 Weight 87.5 kg 87.3 kg General appearance: PRESENT: no acute distress, disheveled, thin, well-developed Head exam: PRESENT: atraumatic, normocephalic Eye exam: PRESENT: conjunctiva pale, EOMI Mouth exam: PRESENT: dry mucosa, neck supple, tongue midline Teeth exam: PRESENT: edentulous Neck exam: ABSENT: carotid bruit, JVD, lymphadenopathy, thyromegaly Respiratory exam: PRESENT: decreased breath sounds, prolonged expiratory phas, rhonchi, symmetrical, unlabored Cardiovascular exam: PRESENT: RRR, +S1, +S2 Pulses: PRESENT: normal radial pulses GI/Abdominal exam: PRESENT: normal bowel sounds, soft. ABSENT: distended, guarding, mass, organolmegaly, rebound, tenderness Rectal exam: PRESENT: deferred Musculoskeletal exam: PRESENT: normal inspection, other - Muscle wasting noted thighs quads bilaterally Neurological exam: PRESENT: awake Psychiatric exam: PRESENT: flat affect Skin exam: PRESENT: dry, warm Results Laboratory Results: 02/22/17 08:36 02/23/17 07:08 02/21/17 02/22/17 02/22/17 15:34 08:36 08:38 WBC 5.1 RBC 4.23 L Hgb 15.6 Hct 45.7 MCV 108 H MCH 36.8 H MCHC 34.1 RDW 14.3 H Plt Count 94 L Seg Neutrophils % 53.8 Lymphocytes % 31.6 Monocytes % 13.1 H Eosinophils % 1.1 Basophils % 0.4 Absolute Neutrophils 2.7 Absolute Lymphocytes 1.6 Absolute Monocytes 0.7 Absolute Eosinophils 0.1 Absolute Basophils 0.0 Sodium 139.1 Potassium 4.3 Chloride 102 Carbon Dioxide 27 Anion Gap 10 BUN 19 Creatinine 1.05 Est GFR ( Amer) > 60 Est GFR (Non-Af Amer) > 60 Glucose 78 Calcium 9.0 Prostate Specific Ag 10.5 H Free PSA 4.25 % Free PSA 40.5 02/23/17 07:08 WBC RBC Hgb Hct MCV MCH MCHC RDW Plt Count Seg Neutrophils % Lymphocytes % Monocytes % Eosinophils % Basophils % Absolute Neutrophils Absolute Lymphocytes Absolute Monocytes Absolute Eosinophils Absolute Basophils Sodium 139.3 Potassium 4.7 Chloride 102 Carbon Dioxide 30 Anion Gap 7 BUN 19 Creatinine 1.01 Est GFR ( Amer) > 60 Est GFR (Non-Af Amer) > 60 Glucose 89 Calcium 8.8 Prostate Specific Ag Free PSA % Free PSA Impressions: Paracentesis Ultrasound 02/17/17 22:19 IMPRESSION: Successful ultrasound-guided diagnostic paracentesis Abdomen/Pelvis CT 02/18/17 00:00 IMPRESSION: Intra-abdominal and pelvic ascitic fluid appear essentially unchanged. Fatty infiltration of the liver. Other findings as noted above Head CT 02/20/17 00:00 IMPRESSION: CHRONIC CHANGES OF ATROPHY AND MICROVASCULAR ISCHEMIA. NO ACUTE PROCESS. Chest CT 02/21/17 00:00 IMPRESSION: 1. Left pleural effusion. 2. Possible 15 mm nodule in the left posterior costophrenic sulcus. Consider CT imaging in the prone position. Consider PET-CT. 3. Ascites. Cirrhosis. 4. Degenerative changes in the thoracic spine. Chest X-Ray 02/22/17 00:00 IMPRESSION: NO ACUTE RADIOGRAPHIC FINDING IN THE CHEST. Chest Ultrasound 02/22/17 14:40 IMPRESSION: No thoracentesis performed. Trace ascites under the right hemidiaphragm. Trace left pleural effusion. Assessment & Plan - Diagnosis (1) Alcoholic cirrhosis of liver with ascites Is this a current diagnosis for this admission?: Yes Plan: Improved (2) Anorexia Is this a current diagnosis for this admission?: Yes (3) Enlarged prostate Is this a current diagnosis for this admission?: Yes (4) Pleural effusion Is this a current diagnosis for this admission?: Yes Plan: Dramatically improved
[2017-02-23] MEDS: CEFTRIAXONE 1 GM/D5W RTU 1 GM/50 ML RTUPB IV SCH (17:00)
== END 2017-02-23 19:50 | DRG 442 ==
LOC: 3S 16:47 → 3W 02-20 17:05
PROVIDERS: ADMIT Internal Medicine; ATTEND Internal Medicine
PROC: 0W9G3ZZ Drainage of Peritoneal Cavity, Percutaneous Approach (ICD-10-PCS; principal; 2017-02-17)
DX: K72.00 Acute and subacute hepatic failure without coma (principal); J90 Pleural effusion, not elsewhere classified; K70.31 Alcoholic cirrhosis of liver with ascites; J44.9 Chronic obstructive pulmonary disease, unspecified; N40.0 Benign prostatic hyperplasia without lower urinary tract symptoms; F10.20 Alcohol dependence, uncomplicated; R91.1 Solitary pulmonary nodule; M19.90 Unspecified osteoarthritis, unspecified site; Z79.899 Other long term (current) drug therapy; Z86.718 Personal history of other venous thrombosis and embolism; Z87.891 Personal history of nicotine dependence
CPT/HCPCS: 36415; 49083; 70450; 71010; 71250; 74176; 74177; 76604; 80048; 80053; 80074; 80076; 81001; 82140; 82570; 84154; 84156; 85025; 85027; 85610; 85730; 86235; 86256; 86320; 87070; 87075; 87101; 87205; 87252; 89050; 93005; 93010; G8978-GP; G8979-GP; G8996-GN; G8997-GN; G8998-GN; J0696; J2060; J2920; J3411; J3490; J7030

== ENCOUNTER 2017-04-11 10:21 | Inpatient (IN) | payer MEDICARE, OTHER ==
[2017-04-11 11:22] LABS: HEMATOCRIT 39.5 % (37.9-51.0); HEMOGLOBIN 13.7 g/dL (13.5-17.0); HGB HCT DIFFERENCE 1.6; MEAN CORPUSCULAR HEMOGLOBIN 35.2 pg (27.0-33.4); MEAN CORPUSCULAR HGB CONC 34.7 g/dL (32.0-36.0); MEAN CORPUSCULAR VOLUME 102 fl (80-97); RED BLOOD COUNT 3.88 10^6/uL (4.35-5.55); RED CELL DISTRIBUTION WIDTH 12.4 % (11.5-14.0)
[2017-04-11 11:26] LABS: PROTHROMBIN TIME 18.2 SEC (11.4-15.4)
--- NOTE | 2017-04-11 11:44 | RADIOLOGY REPORT (SQ) ---
EXAM DESCRIPTION: CT HEAD WITHOUT COMPLETED DATE/TIME: 04/11/2017 11:33 am REASON FOR STUDY: Syncope COMPARISON: CT brain 02/20/2017, 02/26/2011 TECHNIQUE: Axial images acquired through the brain without intravenous contrast. Images reviewed wi th bone, brain and subdural windows. Images stored on PACS. All CT scanners at this facility use dose modulation, iterative reconstruction, and/or weight based d osing when appropriate to reduce radiation dose to as low as reasonably achievable (ALARA). [facility]: Dose Right [facility]: CareDose [facility]: Dose Right [facility]: Teradose 4D [facility]: Smart [id number] RADIATION DOSE: Up-to-date CT equipment and radiation dose reduction techniques were employed. CTDIv ol: 64.6 mGy. DLP: 1163 mGy-cm.mGy. LIMITATIONS: Motion artifact FINDINGS: VENTRICLES: Age-appropriate prominence of the ventricles CEREBRUM: No masses. No hemorrhage. No midline shift. Areas of low density in the white matter mos t likely due to chronic micro-vascular ischemic change. No evidence for acute infarction. CEREBELLUM: No masses. No hemorrhage. No alteration of density. No evidence for acute infarction. EXTRAAXIAL SPACES: Age-appropriate prominence of the sylvian fissures and extra-axial CSF spaces. No fluid collections. No masses. ORBITS AND GLOBE: No intra- or extraconal masses. Normal contour of globe without masses. CALVARIUM: No fracture. PARANASAL SINUSES: No fluid or mucosal thickening. SOFT TISSUES: No mass or hematoma. OTHER: No other significant finding. IMPRESSION: Chronic white matter disease, age-appropriate prominence of the ventricles and sulci. N o acute findings EVIDENCE OF ACUTE STROKE: NO. TECHNICAL DOCUMENTATION: JOB ID: [id number] Quality ID # [id number]: Final reports with documentation of one or more dose reduction techniques (e.g., Au tomated exposure control, adjustment of the mA and/or kV according to patient size, use of iterative reconstruction technique) 2010 [employer]- All Rights Reserved
[2017-04-11 11:47] LABS: BASOPHILS % (MANUAL) 0 % (0-2); EOSINOPHILS % (MANUAL) 0 % (0-6); LYMPHOCYTES % (MANUAL) 3 % (13-45); TOTAL CELLS COUNTED 100
[2017-04-11 11:49] LABS: PLATELET CLUMPS PRESENT; TOXIC GRANULATION SLIGHT; TOXIC VACUOLATION PRESENT
[2017-04-11 11:55] LABS: ALANINE AMINOTRANSFERASE 31 U/L (21-72); ALBUMIN 3.3 g/dL (3.5-5.0); ALKALINE PHOSPHATASE 70 U/L (38-126); ANION GAP 10 (5-19); ASPARTATE AMINO TRANSFERASE 38 U/L (17-59); BILIRUBIN,DIRECT 0.9 mg/dL (0.0-0.4); BILIRUBIN,TOTAL 1.9 mg/dL (0.2-1.3); BLOOD UREA NITROGEN 28 mg/dL (7-20); CALCIUM 9.6 mg/dL (8.4-10.2); CARBON DIOXIDE 23 mmol/L (22-30); CHLORIDE 107 mmol/L (98-107); CREATINE KINASE 62 U/L (55-170); CREATININE RESULT 1.71 mg/dL (0.52-1.25); GLUCOSE 133 mg/dL (75-110); SODIUM 139.7 mmol/L (137-145); TOTAL PROTEIN 6.6 g/dL (6.3-8.2)
[2017-04-11 11:59] LABS: CREATINE KINASE MB 1.06 ng/mL (<4.55)
[2017-04-11 12:04] LABS: POTASSIUM 6.6 mmol/L (3.6-5.0); TROPONIN I < 0.012 ng/mL
--- NOTE | 2017-04-11 12:17 | RADIOLOGY REPORT (SQ) ---
EXAM DESCRIPTION: CHEST PA/LAT COMPLETED DATE/TIME: 04/11/2017 12:00 pm REASON FOR STUDY: syncope COMPARISON: Chest films 02/24/2017, 02/16/2017 CT chest 02/21/2017 EXAM PARAMETERS: NUMBER OF VIEWS: two views TECHNIQUE: Digital Frontal and Lateral radiographic views of the chest acquired. RADIATION DOSE: NA LIMITATIONS: none FINDINGS: LUNGS AND PLEURA: No opacities, masses or pneumothorax. No pleural effusion. MEDIASTINUM AND HILAR STRUCTURES: No masses or contour abnormalities. HEART AND VASCULAR STRUCTURES: Heart normal size. No evidence for failure. BONES: No acute findings. HARDWARE: None in the chest. OTHER: No other significant finding. IMPRESSION: NO SIGNIFICANT RADIOGRAPHIC FINDING IN THE CHEST. TECHNICAL DOCUMENTATION: JOB ID: [id number] [employer]- All Rights Reserved
[2017-04-11] MEDS ORDERED: INSULIN REG, HUMAN 100 UNIT/ML 3 ML VIAL (PYX) IV ONE (12:45)
[2017-04-11] MEDS ORDERED: DEXTROSE 50%-WATER 25 GM/50 ML DISP.SYRIN IV ONE (12:45)
[2017-04-11] MEDS ORDERED: SODIUM POLYSTYRENE SULFONATE 15 GM/60 ML PO ONE (12:45)
[2017-04-11] MEDS ORDERED: NORMAL SALINE 1000 ML 1,000 ML IV ONE ×2 (12:45→14:08)
[2017-04-11 13:23] LABS: APPEARANCE,URINE CLOUDY; BILIRUBIN,URINE NEGATIVE (NEGATIVE); GLUCOSE, URINE NEGATIVE (NEGATIVE); KETONES,URINE NEGATIVE (NEGATIVE); LEUKOCYTE ESTERASE,URINE MODERATE (NEGATIVE); NITRITE,URINE NEGATIVE (NEGATIVE); PROTEIN,URINE 100 mg/dL (NEGATIVE); URINE SPECIFIC GRAVITY 1.014
[2017-04-11] MEDS ORDERED: CEFTRIAXONE 1 GM/D5W RTU 1 GM/50 ML RTUPB IV ONE (13:32)
--- NOTE | 2017-04-11 13:37 | ER Document Report ---
ED General - General Chief Complaint: Fall Stated Complaint: POSSIBLE SYNCOPE/FALL Time Seen by Provider: 04/11/17 10:31 TRAVEL OUTSIDE OF THE [place] IN LAST 30 DAYS: No - HPI Patient complains to provider of: Fall Notes: Patient coming in for evaluation of a fall. Patient has a history of liver failure according to the patient was monitored by her son last night he had lead to go to work this morning still to stay in bed however when the arrived this morning patient was found in the bathroom. Upon evaluating patient patient is alert however is not oriented according to this is patient's baseline. 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 Denies any recent medication changes does indicate that is becoming difficult to take care of the patient home and requesting custodial placement. - Related Data Allergies/Adverse Reactions: No Known Allergies Allergy (Verified 11/04/16 11:46) Home Medications: Current Home Medications Atenolol [Tenormin] 25 mg PO BID 04/11/17 [History] Citalopram Hydrobromide [Celexa] 20 mg PO DAILY 04/11/17 [History] Spironolactone [Aldactone 25 mg Tablet] 25 mg PO DAILY 04/11/17 [History] Tamsulosin HCl [Flomax 0.4 mg Cap.sr] 0.4 mg PO PCSUPPER 04/11/17 [History] Vitamin B Complex [B Complex # 1] 250 mg PO DAILY 04/11/17 [History] Past Medical History - Social History Smoking Status: Former Smoker Chew tobacco use (# tins/day): No Frequency of alcohol use: None Drug Abuse: None Family History: Reviewed & Not Pertinent - Past Medical History Cardiac Medical History: Reports: Hx Coronary Artery Disease, Hx DVT, Hx Hypertension Pulmonary Medical History: Reports: Hx COPD Neurological Medical History: Denies: Hx Cerebrovascular Accident Renal/ Medical History: Denies: Hx Peritoneal Dialysis GI Medical History: Reports: Hx Cirrhosis - 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 , once kidney function improved CT scan Musculoskeltal Medical History: Reports Hx Arthritis Psychiatric Medical History: Reports: Hx Depression Traumatic Medical History: Reports: Hx Fractures - RIBS, RECENT Past Surgical History: Reports: Hx Neurologic Surgery - SPINAL FUSION - Immunizations Hx Diphtheria, Pertussis, Tetanus Vaccination: Yes Hx Pneumococcal Vaccination: 07/11/12 Review of Systems - Review of Systems -: Yes ROS unobtainable due to patient's medical condition - Dementia Physical Exam - Vital signs Vitals: Resp 13 04/11/17 10:34 Interpretation: Normal - General General appearance: Appears well, Alert - HEENT Head: Normocephalic, Atraumatic Eyes: Normal Pupils: PERRL - Respiratory Respiratory status: No respiratory distress Chest status: Nontender Breath sounds: Normal Chest palpation: Normal - Cardiovascular Rhythm: Regular Heart sounds: Normal auscultation Murmur: No - Abdominal Inspection: Normal Distension: No distension Bowel sounds: Normal Tenderness: Nontender Organomegaly: No organomegaly - Back Back: Normal, Nontender - Extremities General upper extremity: Normal inspection, Nontender, Normal color, Normal ROM , Normal temperature General lower extremity: Normal inspection, Nontender, Normal color, Normal ROM , Normal temperature, Normal weight bearing. No: Colton's sign - Neurological Neuro grossly intact: Yes Cognition: Confused [place] Coma Scale Eye Opening: Spontaneous [place] Coma Scale Verbal: Oriented [place] Coma Scale Motor: Obeys Commands [place] Coma Scale Total: 15 Speech: Normal Motor strength normal: LUE, RUE, LLE, RLE Sensory: Normal - Psychological Associated symptoms: Confused - Skin Skin Temperature: Warm Skin Moisture: Dry Skin Color: Normal Course - Re-evaluation Re-evalutation: 04/11/17 14:55 Patient coming in for evaluation after being found on the ground. Lab work shows hyperkalemia with acute renal insufficiency. Urinalysis also shows signs of a urinary tract infection antibiotics were given. Family continues to request custodial placement. Upon discussing patient's case with PCP PCP Dr. Pandya notifies myself that the patient was on hospice. Family has not left and cannot confirm this however Dr. Pandya is gracious enough to admit the patient for his hyperkalemia and urinary tract infection. Did explain to Dr. Pandya the patient's family is requesting possibly help with custodial placement - Vital Signs Vital signs: Temp Pulse Resp BP Pulse Ox 13 84/57 L 95 04/11/17 14:00 04/11/17 13:58 04/11/17 14:00 - Laboratory Result Diagrams: 04/11/17 11:05 04/11/17 11:05 Laboratory results interpreted by me: 04/11/17 04/11/17 04/11/17 11:05 11:05 11:05 WBC 14.0 H RBC 3.88 L MCV 102 H MCH 35.2 H Plt Count 105 L Seg Neuts % (Manual) 81 H Lymphocytes % (Manual) 3 L Monocytes % (Manual) 16 H Abs Neuts (Manual) 11.3 H Abs Lymphs (Manual) 0.4 L Abs Monocytes (Manual) 2.2 H PT 18.2 H Potassium 6.6 H* BUN 28 H Creatinine 1.71 H Est GFR ( Amer) 47 L Est GFR (Non-Af Amer) 39 L Glucose 133 H Total Bilirubin 1.9 H Direct Bilirubin 0.9 H Ammonia Albumin 3.3 L Urine Protein Urine Blood Urine Urobilinogen Ur Leukocyte Esterase 04/11/17 04/11/17 11:05 12:50 WBC RBC MCV MCH Plt Count Seg Neuts % (Manual) Lymphocytes % (Manual) Monocytes % (Manual) Abs Neuts (Manual) Abs Lymphs (Manual) Abs Monocytes (Manual) PT Potassium BUN Creatinine Est GFR ( Amer) Est GFR (Non-Af Amer) Glucose Total Bilirubin Direct Bilirubin Ammonia < 8.7 L Albumin Urine Protein 100 H Urine Blood SMALL H Urine Urobilinogen 2.0 H Ur Leukocyte Esterase MODERATE H Discharge - Discharge Clinical Impression: Acute renal insufficiency, Hyperkalemia, Alcoholic hepatitis without ascites UTI (urinary tract infection) Qualifiers: Urinary tract infection type: site unspecified Hematuria presence: without hematuria Qualified Code(s): N39.0 - Urinary tract infection, site not specified Condition: Fair Disposition: ADMITTED INPATIENT [facility] Admitted: Telemetry
[2017-04-11 13:38] LABS: URINE BARBITURATES SCREEN NEGATIVE; URINE METHADONE SCREEN NEGATIVE; URINE OPIATES LOW NEGATIVE; URINE PHENCYCLIDINE SCREEN NEGATIVE
--- NOTE | 2017-04-11 18:18 | EKG REPORT ---
SEVERITY:- ABNORMAL ECG - SINUS RHYTHM LOW VOLTAGE THROUGHOUT BORDERLINE T ABNORMALITIES, ANT-LAT LEADS BORDERLINE PROLONGED QT INTERVAL : Confirmed by: Luciana Morris MD 11-Apr-2017 18:17:20
[2017-04-11 19:10] LABS: ALANINE AMINOTRANSFERASE 30 U/L (21-72); ALBUMIN 2.5 g/dL (3.5-5.0); ALKALINE PHOSPHATASE 49 U/L (38-126); ANION GAP 9 (5-19); ASPARTATE AMINO TRANSFERASE 37 U/L (17-59); BILIRUBIN,DIRECT 0.6 mg/dL (0.0-0.4); BLOOD UREA NITROGEN 26 mg/dL (7-20); CALCIUM 8.7 mg/dL (8.4-10.2); CARBON DIOXIDE 24 mmol/L (22-30); CHLORIDE 111 mmol/L (98-107); CREATININE RESULT 1.54 mg/dL (0.52-1.25); GLUCOSE 94 mg/dL (75-110); TOTAL PROTEIN 5.4 g/dL (6.3-8.2)
[2017-04-11 19:18] LABS: POTASSIUM 4.7 mmol/L (3.6-5.0)
[2017-04-11] MEDS ORDERED: VITAMIN B COMPLEX PO SCH (20:15)
[2017-04-11] MEDS ORDERED: (PENDING PHARMACY ID) (Atenolol [Tenormin] 25 MG) PO SCH (20:15)
[2017-04-11 20:48] LABS: PROTHROMBIN TIME 19.5 SEC (11.4-15.4)
[2017-04-11 20:49] LABS: PARTIAL THROMBOPLASTIN TIME 33.5 SEC (23.5-35.8)
[2017-04-11 20:58] LABS: LIPASE 202.1 U/L (23-300); MAGNESIUM 1.4 mg/dL (1.6-2.3); PHOSPHORUS 3.3 mg/dL (2.5-4.5)
[2017-04-11 21:00] LABS: AMYLASE < 30 U/L (30-110)
[2017-04-11] MEDS ORDERED: TAMSULOSIN HCL 0.4 MG CAP.SR.24H PO ONE (21:00)
[2017-04-11] MEDS: ATENOLOL 50 MG TABLET PO SCH (21:11)
[2017-04-11 21:30] LABS: THYROID STIMULATING HORMONE 0.79 uIU/mL (0.47-4.68)
[2017-04-11 22:12] LABS: CREATINE KINASE MB 1.41 ng/mL (<4.55); TROPONIN I 0.015 ng/mL
[2017-04-12 03:05] LABS: CREATINE KINASE MB 1.15 ng/mL (<4.55); TROPONIN I 0.021 ng/mL
[2017-04-12 09:28] LABS: ALANINE AMINOTRANSFERASE 31 U/L (21-72); ALBUMIN 2.2 g/dL (3.5-5.0); ALKALINE PHOSPHATASE 51 U/L (38-126); ANION GAP 5 (5-19); ASPARTATE AMINO TRANSFERASE 31 U/L (17-59); BILIRUBIN,DIRECT 0.6 mg/dL (0.0-0.4); BILIRUBIN,TOTAL 1.2 mg/dL (0.2-1.3); BLOOD UREA NITROGEN 25 mg/dL (7-20); CALCIUM 8.2 mg/dL (8.4-10.2); CARBON DIOXIDE 24 mmol/L (22-30); CHLORIDE 113 mmol/L (98-107); CHOLESTEROL 89.55 mg/dL (0-200); CREATININE RESULT 1.32 mg/dL (0.52-1.25); Direct HDL 17 mg/dL (>40); GLUCOSE 87 mg/dL (75-110); POTASSIUM 4.1 mmol/L (3.6-5.0); SODIUM 142.4 mmol/L (137-145); TRIGLYCERIDES 62 mg/dL (<150)
[2017-04-12 09:39] LABS: CREATINE KINASE MB 1.1 ng/mL (<4.55); DIRECT LDL 64 mg/dL (<100); TROPONIN I 0.019 ng/mL
[2017-04-12] MEDS: ATENOLOL 50 MG TABLET PO SCH ×2 (12:25→21:48)
[2017-04-12] MEDS: CITALOPRAM HYDROBROMIDE 20 MG TABLET PO SCH (12:25)
[2017-04-12] MEDS: AMLODIPINE BESYLATE 2.5 MG TABLET PO SCH (12:26)
[2017-04-12] MEDS: CEFTRIAXONE 1 GM/D5W RTU 1 GM/50 ML RTUPB IV SCH (12:30)
[2017-04-12 13:03] LABS: ABSOLUTE BASOPHILS # (AUTO) 0.1 10^3/uL (0.0-0.2); ABSOLUTE EOSINOPHILS # (AUTO) 0.1 10^3/uL (0.0-0.6); ABSOLUTE LYMPHOCYTES (AUTO) 1.6 10^3/uL (0.5-4.7); ABSOLUTE MONOCYTES (AUTO) 0.8 10^3/uL (0.1-1.4); ABSOLUTE NEUT (AUTO) 4.8 10^3/uL (1.7-8.2); BASOPHILS % (AUTO) 1.2 % (0-2); EOSINOPHILS % (AUTO) 0.8 % (0-6); HEMATOCRIT 36.7 % (37.9-51.0); HEMOGLOBIN 12.5 g/dL (13.5-17.0); HGB HCT DIFFERENCE 0.8; LYMPHOCYTES % (AUTO) 21.6 % (13-45); MEAN CORPUSCULAR HEMOGLOBIN 34.7 pg (27.0-33.4); MEAN CORPUSCULAR HGB CONC 34.2 g/dL (32.0-36.0); MEAN CORPUSCULAR VOLUME 102 fl (80-97); MONOCYTES % (AUTO) 10.5 % (3-13); RED BLOOD COUNT 3.61 10^6/uL (4.35-5.55); RED CELL DISTRIBUTION WIDTH 12.7 % (11.5-14.0); SEGMENTED NEUTROPHILS % (AUTO) 65.9 % (42-78); WHITE BLOOD COUNT 7.3 10^3/uL (4.0-10.5)
--- NOTE | 2017-04-12 16:19 | PDOC H&P ---
History of Present Illness Admission Date/PCP: 04/11/17 20:05 EMERALD TAPIA MD History of Present Illness: ERIC WEIR is a 81 year old male, history of chronic alcohol dependence, he was brought to the emergency room by his because of multiple falls, confusion, he was disoriented to present time and place. 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 In the emergency room he was evaluated he was found to have acute kidney injury associated with hyperkalemia. 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 I spoke to the , she stated that the patient recently has had multiple falls and she cannot take care of him anymore at home. She has had to call EMS to the residence couple of times when he fell and she could not get him off the floor. It seems that patient may ultimately need placement in the long-term care facility like a halfway. 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, once kidney function improved CT scan Musculoskeltal Medical History: Reports: Arthritis Psychiatric Medical History: Reports: Alcohol Dependency, Depression, Substance Abuse Social History Smoking Status: Former Smoker Frequency of Alcohol Use: Heavy Hx Recreational Drug Use: No Drugs: None Hx Prescription Drug Abuse: No - Advance Directive Resuscitation Status: Full Code Family History Family History: Reviewed & Not Pertinent Parental Family History Reviewed: Yes Children Family History Reviewed: Yes Sibling(s) Family History Reviewed.: Yes Medication/Allergy Home Medications: Amlodipine Besylate [Norvasc 2.5 mg Tablet] 2.5 mg PO DAILY 02/17/17 Atenolol [Tenormin] 25 mg PO BID 04/11/17 Citalopram Hydrobromide [Celexa] 20 mg PO DAILY 04/11/17 Spironolactone [Aldactone 25 mg Tablet] 25 mg PO DAILY 04/11/17 Tamsulosin HCl [Flomax 0.4 mg Cap.sr] 0.4 mg PO PCSUPPER 04/11/17 Vitamin B Complex [B Complex # 1] 250 mg PO DAILY 04/11/17 Allergies/Adverse Reactions: No Known Allergies Allergy (Verified 11/04/16 11:46) Review of Systems ROS unobtainable: Due to mental status Physical Exam Vital Signs: Temp Pulse Resp BP Pulse Ox 98.0 F 68 12 109/59 L 100 04/12/17 08:14 04/12/17 08:14 04/12/17 08:14 04/12/17 08:14 04/12/17 08:14 Intake & Output 04/11/17 04/12/17 04/13/17 06:59 06:59 06:59 Intake Total 476 0 Balance 476 0 Weight 146.2 kg General appearance: PRESENT: no acute distress, other - Elderly male chronically ill looking Eye exam: PRESENT: PERRLA Mouth exam: PRESENT: dry mucosa Respiratory exam: PRESENT: decreased breath sounds Cardiovascular exam: PRESENT: +S1, +S2, systolic murmur GI/Abdominal exam: PRESENT: soft Neurological exam: PRESENT: alert, altered Psychiatric exam: PRESENT: anxious Skin exam: PRESENT: mottled Results Laboratory Results: 04/12/17 12:15 04/12/17 09:02 04/11/17 04/11/17 04/11/17 20:22 20:22 20:22 WBC RBC Hgb Hct MCV MCH MCHC RDW Plt Count Seg Neutrophils % Lymphocytes % Monocytes % Eosinophils % Basophils % Absolute Neutrophils Absolute Lymphocytes Absolute Monocytes Absolute Eosinophils Absolute Basophils Sodium Potassium Chloride Carbon Dioxide Anion Gap BUN Creatinine Est GFR ( Amer) Est GFR (Non-Af Amer) Glucose Calcium Phosphorus 3.3 Magnesium 1.4 L Total Bilirubin AST ALT Alkaline Phosphatase Ammonia < 8.7 L Total Protein Albumin Triglycerides Cholesterol LDL Cholesterol Direct VLDL Cholesterol HDL Cholesterol Amylase < 30 L Lipase 202.1 TSH 0.79 Free T4 1.28 04/12/17 04/12/17 04/12/17 09:02 09:02 12:15 WBC Cancelled 7.3 RBC Cancelled 3.61 L Hgb Cancelled 12.5 L Hct Cancelled 36.7 L MCV Cancelled 102 H MCH Cancelled 34.7 H MCHC Cancelled 34.2 RDW Cancelled 12.7 Plt Count Cancelled 83 L Seg Neutrophils % Cancelled 65.9 Lymphocytes % Cancelled 21.6 Monocytes % Cancelled 10.5 Eosinophils % Cancelled 0.8 Basophils % Cancelled 1.2 Absolute Neutrophils Cancelled 4.8 Absolute Lymphocytes Cancelled 1.6 Absolute Monocytes Cancelled 0.8 Absolute Eosinophils Cancelled 0.1 Absolute Basophils Cancelled 0.1 Sodium 142.4 Potassium 4.1 Chloride 113 H Carbon Dioxide 24 Anion Gap 5 BUN 25 H Creatinine 1.32 H Est GFR ( Amer) > 60 Est GFR (Non-Af Amer) 52 L Glucose 87 Calcium 8.2 L Phosphorus Magnesium Total Bilirubin 1.2 AST 31 ALT 31 Alkaline Phosphatase 51 Ammonia Total Protein 5.0 L Albumin 2.2 L Triglycerides 62 Cholesterol 89.55 LDL Cholesterol Direct 64 VLDL Cholesterol 12.0 HDL Cholesterol 17 L Amylase Lipase TSH Free T4 04/11/17 04/11/17 04/11/17 20:22 20:22 20:22 Creatine Kinase 186 H CK-MB (CK-2) 1.41 Troponin I 0.015 NT-Pro-B Natriuret Pep 4410 H 04/12/17 04/12/17 04/12/17 02:05 02:05 09:02 Creatine Kinase 139 104 CK-MB (CK-2) 1.15 Troponin I 0.021 NT-Pro-B Natriuret Pep 04/12/17 09:02 Creatine Kinase CK-MB (CK-2) 1.10 Troponin I 0.019 NT-Pro-B Natriuret Pep Impressions: Chest X-Ray 04/11/17 10:38 IMPRESSION: NO SIGNIFICANT RADIOGRAPHIC FINDING IN THE CHEST. Head CT 04/11/17 10:38 IMPRESSION: Chronic white matter disease, age-appropriate prominence of the ventricles and sulci. No acute findings EVIDENCE OF ACUTE STROKE: NO. Assessment & Plan - Diagnosis (1) Acute kidney injury Is this a current diagnosis for this admission?: Yes Plan: She has acute kidney injury most likely prerenal acute kidney injury due to dehydration and inadequate intake. Patient is not eating or drinking adequately according to the (2) Urinary tract infection Qualifiers: Urinary tract infection type: site unspecified Hematuria presence: without hematuria Qualified Code(s): N39.0 - Urinary tract infection, site not specified Is this a current diagnosis for this admission?: Yes Plan: The urine dipstick is grossly abnormal, with positive leukocyte esterase, positive nitrite, he be treated with IV antibiotic (3) Liver cirrhosis Qualifiers: Hepatic cirrhosis type: alcoholic cirrhosis Ascites presence: without ascites Qualified Code(s): K70.30 - Alcoholic cirrhosis of liver without ascites Is this a current diagnosis for this admission?: Yes (4) Dementia associated with alcoholism Qualifiers: Dementia behavioral disturbance: without behavioral disturbance Qualified Code(s): F10.97 - Alcohol use, unspecified with alcohol-induced persisting dementia Is this a current diagnosis for this admission?: Yes
--- NOTE | 2017-04-12 16:49 | PDOC PROGRESS REPORT ---
Subjective Progress Note for:: 04/12/17 Subjective:: Patient was admitted yesterday for the management of acute kidney injury, UTI, alcohol-related dementia. The kidney function is improved today with hydration suggesting that the acute kidney injury is prerenal due to dehydration. I spoke to the spouse about his condition, she wants him placed in a half-way but she said, she cannot afford the cost of the half-way. The last time he was admitted he was transferred to the half-way for rehabilitation. Patient is a discharge planning consultation will be requested. Physical Exam Vital Signs: Temp Pulse Resp BP Pulse Ox 98.0 F 68 12 109/59 L 100 04/12/17 08:14 04/12/17 08:14 04/12/17 08:14 04/12/17 08:14 04/12/17 08:14 Intake & Output 04/11/17 04/12/17 04/13/17 06:59 06:59 06:59 Intake Total 476 0 Balance 476 0 Weight 146.2 kg General appearance: PRESENT: no acute distress Eye exam: PRESENT: PERRLA Respiratory exam: PRESENT: clear to auscultation hussein Cardiovascular exam: PRESENT: +S1, +S2 GI/Abdominal exam: PRESENT: soft Neurological exam: PRESENT: alert Results Laboratory Results: 04/12/17 12:15 04/12/17 09:02 04/11/17 04/11/17 04/11/17 20:22 20:22 20:22 WBC RBC Hgb Hct MCV MCH MCHC RDW Plt Count Seg Neutrophils % Lymphocytes % Monocytes % Eosinophils % Basophils % Absolute Neutrophils Absolute Lymphocytes Absolute Monocytes Absolute Eosinophils Absolute Basophils Sodium Potassium Chloride Carbon Dioxide Anion Gap BUN Creatinine Est GFR ( Amer) Est GFR (Non-Af Amer) Glucose Calcium Phosphorus 3.3 Magnesium 1.4 L Total Bilirubin AST ALT Alkaline Phosphatase Ammonia < 8.7 L Total Protein Albumin Triglycerides Cholesterol LDL Cholesterol Direct VLDL Cholesterol HDL Cholesterol Amylase < 30 L Lipase 202.1 TSH 0.79 Free T4 1.28 04/12/17 04/12/17 04/12/17 09:02 09:02 12:15 WBC Cancelled 7.3 RBC Cancelled 3.61 L Hgb Cancelled 12.5 L Hct Cancelled 36.7 L MCV Cancelled 102 H MCH Cancelled 34.7 H MCHC Cancelled 34.2 RDW Cancelled 12.7 Plt Count Cancelled 83 L Seg Neutrophils % Cancelled 65.9 Lymphocytes % Cancelled 21.6 Monocytes % Cancelled 10.5 Eosinophils % Cancelled 0.8 Basophils % Cancelled 1.2 Absolute Neutrophils Cancelled 4.8 Absolute Lymphocytes Cancelled 1.6 Absolute Monocytes Cancelled 0.8 Absolute Eosinophils Cancelled 0.1 Absolute Basophils Cancelled 0.1 Sodium 142.4 Potassium 4.1 Chloride 113 H Carbon Dioxide 24 Anion Gap 5 BUN 25 H Creatinine 1.32 H Est GFR ( Amer) > 60 Est GFR (Non-Af Amer) 52 L Glucose 87 Calcium 8.2 L Phosphorus Magnesium Total Bilirubin 1.2 AST 31 ALT 31 Alkaline Phosphatase 51 Ammonia Total Protein 5.0 L Albumin 2.2 L Triglycerides 62 Cholesterol 89.55 LDL Cholesterol Direct 64 VLDL Cholesterol 12.0 HDL Cholesterol 17 L Amylase Lipase TSH Free T4 04/11/17 04/11/17 04/11/17 20:22 20:22 20:22 Creatine Kinase 186 H CK-MB (CK-2) 1.41 Troponin I 0.015 NT-Pro-B Natriuret Pep 4410 H 04/12/17 04/12/17 04/12/17 02:05 02:05 09:02 Creatine Kinase 139 104 CK-MB (CK-2) 1.15 Troponin I 0.021 NT-Pro-B Natriuret Pep 04/12/17 09:02 Creatine Kinase CK-MB (CK-2) 1.10 Troponin I 0.019 NT-Pro-B Natriuret Pep Impressions: Chest X-Ray 04/11/17 10:38 IMPRESSION: NO SIGNIFICANT RADIOGRAPHIC FINDING IN THE CHEST. Head CT 04/11/17 10:38 IMPRESSION: Chronic white matter disease, age-appropriate prominence of the ventricles and sulci. No acute findings EVIDENCE OF ACUTE STROKE: NO. Assessment & Plan - Diagnosis (1) Acute kidney injury Is this a current diagnosis for this admission?: Yes Plan: This is improving with hydration, will continue same (2) Urinary tract infection Qualifiers: Urinary tract infection type: site unspecified Hematuria presence: without hematuria Qualified Code(s): N39.0 - Urinary tract infection, site not specified Is this a current diagnosis for this admission?: Yes Plan: Continue IV antibiotic (3) Liver cirrhosis Qualifiers: Hepatic cirrhosis type: alcoholic cirrhosis Ascites presence: without ascites Qualified Code(s): K70.30 - Alcoholic cirrhosis of liver without ascites Is this a current diagnosis for this admission?: Yes (4) Dementia associated with alcoholism Qualifiers: Dementia behavioral disturbance: without behavioral disturbance Qualified Code(s): F10.97 - Alcohol use, unspecified with alcohol-induced persisting dementia Is this a current diagnosis for this admission?: Yes
[2017-04-12] MEDS: TAMSULOSIN HCL 0.4 MG CAP.SR.24H PO SCH (17:53)
[2017-04-12] MEDS: NORMAL SALINE 1000 ML 1,000 ML IV PRN (21:49)
[2017-04-13] MEDS: ATENOLOL 50 MG TABLET PO SCH ×2 (13:37→22:30)
[2017-04-13] MEDS: AMLODIPINE BESYLATE 2.5 MG TABLET PO SCH (13:37)
[2017-04-13] MEDS: MULTIVIT-STRESS FORMULA/ZINC TABLET PO SCH (13:45)
[2017-04-13] MEDS: CEFTRIAXONE 1 GM/D5W RTU 1 GM/50 ML RTUPB IV SCH (13:45)
[2017-04-13] MEDS: CITALOPRAM HYDROBROMIDE 20 MG TABLET PO SCH (13:45)
[2017-04-13] MEDS: TAMSULOSIN HCL 0.4 MG CAP.SR.24H PO SCH (19:30)
--- NOTE | 2017-04-13 22:43 | PDOC PROGRESS REPORT ---
Subjective Progress Note for:: 04/13/17 Subjective:: He was seen by the bedside, I discussed with the the options available after discharge from the hospital, it seems that patient spouse is not able to take care of him any longer she wants in place in a long-term care facility. Unfortunately he does not have Medicaid he has Medicare and for life, [facility] would need to get involved in order to get placement in long-term care that would be financially reasonable for the family Physical Exam Vital Signs: Temp Pulse Resp BP Pulse Ox 97.5 F 73 18 115/71 99 04/13/17 20:00 04/13/17 20:00 04/13/17 20:00 04/13/17 20:00 04/13/17 20:00 Intake & Output 04/12/17 04/13/17 04/14/17 06:59 06:59 06:59 Intake Total 476 1920 960 Output Total 1050 Balance 476 870 960 Weight 146.2 kg 68.6 kg General appearance: PRESENT: no acute distress Eye exam: PRESENT: PERRLA Respiratory exam: PRESENT: clear to auscultation hussein Cardiovascular exam: PRESENT: +S1, +S2 Neurological exam: PRESENT: alert Results Laboratory Results: 04/12/17 12:15 04/12/17 09:02 04/11/17 04/11/17 04/11/17 20:22 20:22 20:22 Creatine Kinase 186 H CK-MB (CK-2) 1.41 Troponin I 0.015 NT-Pro-B Natriuret Pep 4410 H 04/12/17 04/12/17 04/12/17 02:05 02:05 09:02 Creatine Kinase 139 104 CK-MB (CK-2) 1.15 Troponin I 0.021 NT-Pro-B Natriuret Pep 04/12/17 09:02 Creatine Kinase CK-MB (CK-2) 1.10 Troponin I 0.019 NT-Pro-B Natriuret Pep Impressions: Chest X-Ray 04/11/17 10:38 IMPRESSION: NO SIGNIFICANT RADIOGRAPHIC FINDING IN THE CHEST. Head CT 04/11/17 10:38 IMPRESSION: Chronic white matter disease, age-appropriate prominence of the ventricles and sulci. No acute findings EVIDENCE OF ACUTE STROKE: NO. Assessment & Plan - Diagnosis (1) Acute kidney injury Is this a current diagnosis for this admission?: Yes (2) Urinary tract infection Qualifiers: Urinary tract infection type: site unspecified Hematuria presence: without hematuria Qualified Code(s): N39.0 - Urinary tract infection, site not specified Is this a current diagnosis for this admission?: Yes (3) Liver cirrhosis Qualifiers: Hepatic cirrhosis type: alcoholic cirrhosis Ascites presence: without ascites Qualified Code(s): K70.30 - Alcoholic cirrhosis of liver without ascites Is this a current diagnosis for this admission?: Yes (4) Dementia associated with alcoholism Qualifiers: Dementia behavioral disturbance: without behavioral disturbance Qualified Code(s): F10.97 - Alcohol use, unspecified with alcohol-induced persisting dementia Is this a current diagnosis for this admission?: Yes
[2017-04-13 23:25] LABS: ABSOLUTE EOSINOPHILS # (AUTO) 0.1 10^3/uL (0.0-0.6); ABSOLUTE LYMPHOCYTES (AUTO) 1.8 10^3/uL (0.5-4.7); ABSOLUTE MONOCYTES (AUTO) 0.6 10^3/uL (0.1-1.4); ABSOLUTE NEUT (AUTO) 2.7 10^3/uL (1.7-8.2); BASOPHILS % (AUTO) 0.6 % (0-2); HEMATOCRIT 36.4 % (37.9-51.0); HEMOGLOBIN 12.8 g/dL (13.5-17.0); LYMPHOCYTES % (AUTO) 33.7 % (13-45); MEAN CORPUSCULAR HEMOGLOBIN 35.5 pg (27.0-33.4); MEAN CORPUSCULAR VOLUME 102 fl (80-97); MONOCYTES % (AUTO) 12.3 % (3-13); RED BLOOD COUNT 3.59 10^6/uL (4.35-5.55); RED CELL DISTRIBUTION WIDTH 12.6 % (11.5-14.0); SEGMENTED NEUTROPHILS % (AUTO) 51.4 % (42-78); WHITE BLOOD COUNT 5.2 10^3/uL (4.0-10.5)
[2017-04-13 23:36] LABS: ALANINE AMINOTRANSFERASE 35 U/L (21-72); ALBUMIN 2.3 g/dL (3.5-5.0); ALKALINE PHOSPHATASE 69 U/L (38-126); ANION GAP 5 (5-19); ASPARTATE AMINO TRANSFERASE 38 U/L (17-59); BILIRUBIN,DIRECT 0.6 mg/dL (0.0-0.4); BILIRUBIN,TOTAL 0.8 mg/dL (0.2-1.3); BLOOD UREA NITROGEN 22 mg/dL (7-20); CARBON DIOXIDE 24 mmol/L (22-30); CHLORIDE 109 mmol/L (98-107); CREATININE RESULT 1.12 mg/dL (0.52-1.25); GLUCOSE 78 mg/dL (75-110); POTASSIUM 4.1 mmol/L (3.6-5.0); SODIUM 138.1 mmol/L (137-145); TOTAL PROTEIN 5.2 g/dL (6.3-8.2)
[2017-04-14 09:25] LABS: ALANINE AMINOTRANSFERASE 33 U/L (21-72); ALBUMIN 1.9 g/dL (3.5-5.0); ALKALINE PHOSPHATASE 53 U/L (38-126); ANION GAP 6 (5-19); ASPARTATE AMINO TRANSFERASE 36 U/L (17-59); BILIRUBIN,DIRECT 0.6 mg/dL (0.0-0.4); BILIRUBIN,TOTAL 0.9 mg/dL (0.2-1.3); BLOOD UREA NITROGEN 21 mg/dL (7-20); CALCIUM 7.7 mg/dL (8.4-10.2); CARBON DIOXIDE 21 mmol/L (22-30); CHLORIDE 111 mmol/L (98-107); CREATININE RESULT 1.04 mg/dL (0.52-1.25); GLUCOSE 77 mg/dL (75-110); POTASSIUM 4.1 mmol/L (3.6-5.0); SODIUM 137.6 mmol/L (137-145); TOTAL PROTEIN 4.5 g/dL (6.3-8.2)
[2017-04-14] MEDS: ATENOLOL 50 MG TABLET PO SCH ×2 (11:16→21:49)
[2017-04-14] MEDS: AMLODIPINE BESYLATE 2.5 MG TABLET PO SCH (11:17)
[2017-04-14] MEDS: CITALOPRAM HYDROBROMIDE 20 MG TABLET PO SCH (11:17)
[2017-04-14] MEDS: MULTIVIT-STRESS FORMULA/ZINC TABLET PO SCH (11:17)
[2017-04-14] MEDS: CEFTRIAXONE 1 GM/D5W RTU 1 GM/50 ML RTUPB IV SCH (11:18)
[2017-04-14] MEDS: TAMSULOSIN HCL 0.4 MG CAP.SR.24H PO SCH (17:24)
[2017-04-14] MEDS ORDERED: INFLUENZA ADLT QUAD (36MOS+) 2017-18 VAC 0.5 ML SYR IM PRN (18:01)
--- NOTE | 2017-04-14 23:59 | PDOC PROGRESS REPORT ---
Subjective Progress Note for:: 04/14/17 Subjective:: Patient was seen by the bedside, He continues to improve with hydration the kidney function is now normalized suggesting that this is prerenal acute kidney injury due to dehydration and poor intake Physical Exam Vital Signs: Temp Pulse Resp BP Pulse Ox 98.1 F 69 16 108/73 100 04/14/17 19:59 04/14/17 19:59 04/14/17 19:59 04/14/17 19:59 04/14/17 19:59 Intake & Output 04/13/17 04/14/17 04/15/17 06:59 06:59 06:59 Intake Total 1920 1430 1601 Output Total 1050 Balance 870 1430 1601 Weight 68.6 kg 68.5 kg General appearance: PRESENT: no acute distress Head exam: PRESENT: atraumatic, normocephalic Eye exam: PRESENT: conjunctiva pink, EOMI, PERRLA Neck exam: PRESENT: full ROM Respiratory exam: PRESENT: clear to auscultation hussein Cardiovascular exam: PRESENT: RRR, +S1, +S2 Vascular exam: PRESENT: normal capillary refill GI/Abdominal exam: PRESENT: normal bowel sounds, soft Rectal exam: PRESENT: deferred Neurological exam: PRESENT: alert, CN II-XII grossly intact Skin exam: PRESENT: dry, intact, warm Results Laboratory Results: 04/13/17 22:50 04/14/17 08:48 04/14/17 08:48 Sodium 137.6 Potassium 4.1 Chloride 111 H Carbon Dioxide 21 L Anion Gap 6 BUN 21 H Creatinine 1.04 Est GFR ( Amer) > 60 Est GFR (Non-Af Amer) > 60 Glucose 77 Calcium 7.7 L Total Bilirubin 0.9 AST 36 ALT 33 Alkaline Phosphatase 53 Total Protein 4.5 L Albumin 1.9 L 04/11/17 04/11/17 04/11/17 20:22 20:22 20:22 Creatine Kinase 186 H CK-MB (CK-2) 1.41 Troponin I 0.015 NT-Pro-B Natriuret Pep 4410 H 04/12/17 04/12/17 04/12/17 02:05 02:05 09:02 Creatine Kinase 139 104 CK-MB (CK-2) 1.15 Troponin I 0.021 NT-Pro-B Natriuret Pep 04/12/17 09:02 Creatine Kinase CK-MB (CK-2) 1.10 Troponin I 0.019 NT-Pro-B Natriuret Pep Impressions: Chest X-Ray 04/11/17 10:38 IMPRESSION: NO SIGNIFICANT RADIOGRAPHIC FINDING IN THE CHEST. Head CT 04/11/17 10:38 IMPRESSION: Chronic white matter disease, age-appropriate prominence of the ventricles and sulci. No acute findings EVIDENCE OF ACUTE STROKE: NO. Assessment & Plan - Diagnosis (1) Acute kidney injury Is this a current diagnosis for this admission?: Yes Plan: Resolved (2) Urinary tract infection Qualifiers: Urinary tract infection type: site unspecified Hematuria presence: without hematuria Qualified Code(s): N39.0 - Urinary tract infection, site not specified Is this a current diagnosis for this admission?: Yes (3) Liver cirrhosis Qualifiers: Hepatic cirrhosis type: alcoholic cirrhosis Ascites presence: without ascites Qualified Code(s): K70.30 - Alcoholic cirrhosis of liver without ascites Is this a current diagnosis for this admission?: Yes (4) Dementia associated with alcoholism Qualifiers: Dementia behavioral disturbance: without behavioral disturbance Qualified Code(s): F10.97 - Alcohol use, unspecified with alcohol-induced persisting dementia Is this a current diagnosis for this admission?: Yes - Plan Summary Plan Summary: Continue IV antibiotic
[2017-04-15] MEDS ORDERED: MAG HYDROX/AL HYDROX/SIMETH SUSP 30 ML UDCUP ONE (07:45)
[2017-04-15] MEDS: MULTIVIT-STRESS FORMULA/ZINC TABLET PO SCH (11:38)
[2017-04-15] MEDS: AMLODIPINE BESYLATE 2.5 MG TABLET PO SCH (11:38)
[2017-04-15] MEDS: CITALOPRAM HYDROBROMIDE 20 MG TABLET PO SCH (11:38)
[2017-04-15] MEDS: ATENOLOL 50 MG TABLET PO SCH ×2 (11:39→21:44)
[2017-04-15] MEDS: CEFTRIAXONE 1 GM/D5W RTU 1 GM/50 ML RTUPB IV SCH (11:40)
[2017-04-15] MEDS: NORMAL SALINE 1000 ML 1,000 ML IV PRN (13:49)
--- NOTE | 2017-04-15 16:02 | PDOC PROGRESS REPORT ---
Subjective Progress Note for:: 04/15/17 Subjective:: Patient remain at baseline mental limitation. He denied chest pain or difficulty with breathing. No reported nausea or vomiting. Patient had dose of Maalox for upset stomach earlier today. No fever or chills. Physical Exam Vital Signs: Temp Pulse Resp BP Pulse Ox 97.6 F 73 17 151/88 H 97 04/15/17 07:43 04/15/17 14:00 04/15/17 07:43 04/15/17 07:43 04/15/17 07:43 Intake & Output 04/14/17 04/15/17 04/16/17 06:59 06:59 06:59 Intake Total 1430 3046 240 Balance 1430 3046 240 Weight 68.5 kg 68.5 kg General appearance: PRESENT: no acute distress, cooperative Head exam: PRESENT: atraumatic, normocephalic Eye exam: PRESENT: conjunctiva pink, EOMI, PERRLA. ABSENT: scleral icterus Mouth exam: PRESENT: moist Respiratory exam: PRESENT: clear to auscultation hussein Cardiovascular exam: PRESENT: RRR, +S1, +S2. ABSENT: diastolic murmur, gallop, rubs, systolic murmur Vascular exam: ABSENT: pallor GI/Abdominal exam: PRESENT: normal bowel sounds, soft. ABSENT: distended, guarding, mass, organolmegaly, rebound, tenderness Neurological exam: PRESENT: awake, oriented to person, oriented to place Psychiatric exam: PRESENT: appropriate affect, normal mood. ABSENT: homicidal ideation, suicidal ideation Skin exam: PRESENT: dry, intact, warm. ABSENT: cyanosis, rash Results Laboratory Results: 04/13/17 22:50 04/14/17 08:48 04/11/17 04/11/17 04/11/17 20:22 20:22 20:22 Creatine Kinase 186 H CK-MB (CK-2) 1.41 Troponin I 0.015 NT-Pro-B Natriuret Pep 4410 H 04/12/17 04/12/17 04/12/17 02:05 02:05 09:02 Creatine Kinase 139 104 CK-MB (CK-2) 1.15 Troponin I 0.021 NT-Pro-B Natriuret Pep 04/12/17 09:02 Creatine Kinase CK-MB (CK-2) 1.10 Troponin I 0.019 NT-Pro-B Natriuret Pep Impressions: Chest X-Ray 04/11/17 10:38 IMPRESSION: NO SIGNIFICANT RADIOGRAPHIC FINDING IN THE CHEST. Head CT 04/11/17 10:38 IMPRESSION: Chronic white matter disease, age-appropriate prominence of the ventricles and sulci. No acute findings EVIDENCE OF ACUTE STROKE: NO. Assessment & Plan - Diagnosis (1) Acute kidney injury Is this a current diagnosis for this admission?: Yes Plan: Improving renal indices. Continue IV fluid hydration. (2) UTI (urinary tract infection) Qualifiers: Urinary tract infection type: site unspecified Hematuria presence: without hematuria Qualified Code(s): N39.0 - Urinary tract infection, site not specified Is this a current diagnosis for this admission?: Yes Plan: Continue IV Rocephin coverage. Follow up on culture reports. (3) Dementia associated with alcoholism Qualifiers: Dementia behavioral disturbance: without behavioral disturbance Qualified Code(s): F10.97 - Alcohol use, unspecified with alcohol-induced persisting dementia Is this a current diagnosis for this admission?: Yes Plan: Continue on all other current medication management and support. - Time Time Spent with patient: 25-34 minutes Medications reviewed and adjusted accordingly: Yes Anticipated discharge: SNF Within: Other - Inpatient Certification Based on my medical assessment, after consideration of the patient's comorbidities, presenting symptoms, or acuity I expect that the services needed warrant INPATIENT care.: Yes I certify that my determination is in accordance with my understanding of Medicare's requirements for reasonable and necessary INPATIENT services [42 CFR 412.3e].: Yes Medical Necessity: Need Close Monitoring Due to Risk of Patient Decompensation, Need For IV Fluids, Need For Continuous Telemetry Monitoring, Need for IV Antibiotics, Risk of Complication if Not Cared For in Hospital Post Hospital Care: D/C or Transfer Summary - Plan Summary Plan Summary: See covering attending physician orders.
[2017-04-15] MEDS: TAMSULOSIN HCL 0.4 MG CAP.SR.24H PO SCH (17:59)
[2017-04-15] MEDS: MAG HYDROX/AL HYDROX/SIMETH SUSP 30 ML UDCUP PO PRN (20:43)
[2017-04-16] MEDS: MULTIVIT-STRESS FORMULA/ZINC TABLET PO SCH (12:48)
[2017-04-16] MEDS: ATENOLOL 50 MG TABLET PO SCH ×2 (12:48→22:20)
[2017-04-16] MEDS: AMLODIPINE BESYLATE 2.5 MG TABLET PO SCH (12:49)
[2017-04-16] MEDS: CITALOPRAM HYDROBROMIDE 20 MG TABLET PO SCH (12:49)
[2017-04-16] MEDS: CEFTRIAXONE 1 GM/D5W RTU 1 GM/50 ML RTUPB IV SCH (12:51)
--- NOTE | 2017-04-16 15:18 | PDOC PROGRESS REPORT ---
Subjective Progress Note for:: 04/16/17 Subjective:: No chest pain or difficulty with breathing. No reported abdominal pain, nausea or vomiting. No fever or chills. Physical Exam Vital Signs: Temp Pulse Resp BP Pulse Ox 97.5 F 73 12 110/52 L 98 04/16/17 12:00 04/16/17 12:00 04/16/17 12:00 04/16/17 12:00 04/16/17 12:00 Intake & Output 04/15/17 04/16/17 04/17/17 06:59 06:59 06:59 Intake Total 3046 3604 Balance 3046 3604 Weight 68.5 kg 68.5 kg Physical Exam: General appearance: PRESENT: no acute distress, cooperative Head exam: PRESENT: atraumatic, normocephalic Eye exam: PRESENT: conjunctiva pink, EOMI, PERRLA. ABSENT: scleral icterus Mouth exam: PRESENT: moist Respiratory exam: PRESENT: clear to auscultation hussein Cardiovascular exam: PRESENT: RRR, +S1, +S2. ABSENT: diastolic murmur, gallop, rubs, systolic murmur Vascular exam: ABSENT: pallor GI/Abdominal exam: PRESENT: normal bowel sounds, soft. ABSENT: distended, guarding, mass, organomegaly, rebound, tenderness Neurological exam: PRESENT: awake, oriented to person, oriented to place Psychiatric exam: PRESENT: appropriate affect, normal mood. ABSENT: homicidal ideation, suicidal ideation Skin exam: PRESENT: dry, intact, warm. ABSENT: cyanosis, rash Results Laboratory Results: 04/13/17 22:50 04/14/17 08:48 04/11/17 04/11/17 04/11/17 20:22 20:22 20:22 Creatine Kinase 186 H CK-MB (CK-2) 1.41 Troponin I 0.015 NT-Pro-B Natriuret Pep 4410 H 04/12/17 04/12/17 04/12/17 02:05 02:05 09:02 Creatine Kinase 139 104 CK-MB (CK-2) 1.15 Troponin I 0.021 NT-Pro-B Natriuret Pep 04/12/17 09:02 Creatine Kinase CK-MB (CK-2) 1.10 Troponin I 0.019 NT-Pro-B Natriuret Pep Impressions: Chest X-Ray 04/11/17 10:38 IMPRESSION: NO SIGNIFICANT RADIOGRAPHIC FINDING IN THE CHEST. Head CT 04/11/17 10:38 IMPRESSION: Chronic white matter disease, age-appropriate prominence of the ventricles and sulci. No acute findings EVIDENCE OF ACUTE STROKE: NO. Assessment & Plan - Diagnosis (1) Acute kidney injury Is this a current diagnosis for this admission?: Yes (2) UTI (urinary tract infection) Qualifiers: Urinary tract infection type: site unspecified Hematuria presence: without hematuria Qualified Code(s): N39.0 - Urinary tract infection, site not specified Is this a current diagnosis for this admission?: Yes (3) Dementia associated with alcoholism Qualifiers: Dementia behavioral disturbance: without behavioral disturbance Qualified Code(s): F10.97 - Alcohol use, unspecified with alcohol-induced persisting dementia Is this a current diagnosis for this admission?: Yes - Time Time Spent with patient: 25-34 minutes Medications reviewed and adjusted accordingly: Yes Anticipated discharge: SNF Within: Other - Inpatient Certification Based on my medical assessment, after consideration of the patient's comorbidities, presenting symptoms, or acuity I expect that the services needed warrant INPATIENT care.: Yes I certify that my determination is in accordance with my understanding of Medicare's requirements for reasonable and necessary INPATIENT services [42 CFR 412.3e].: Yes Medical Necessity: Need Close Monitoring Due to Risk of Patient Decompensation, Need For IV Fluids, Need For Continuous Telemetry Monitoring, Need for IV Antibiotics, Risk of Complication if Not Cared For in Hospital Post Hospital Care: D/C or Transfer Summary - Plan Summary Plan Summary: See covering attending physician orders.
[2017-04-16] MEDS: TAMSULOSIN HCL 0.4 MG CAP.SR.24H PO SCH (17:30)
[2017-04-17] MEDS: MAG HYDROX/AL HYDROX/SIMETH SUSP 30 ML UDCUP PO PRN (00:13)
[2017-04-17] MEDS: MULTIVIT-STRESS FORMULA/ZINC TABLET PO SCH (11:29)
[2017-04-17] MEDS: CITALOPRAM HYDROBROMIDE 20 MG TABLET PO SCH (11:30)
[2017-04-17] MEDS: ATENOLOL 50 MG TABLET PO SCH ×2 (11:30→23:10)
[2017-04-17] MEDS: AMLODIPINE BESYLATE 2.5 MG TABLET PO SCH (11:30)
[2017-04-17] MEDS: CEFTRIAXONE 1 GM/D5W RTU 1 GM/50 ML RTUPB IV SCH (11:31)
[2017-04-17] MEDS: TAMSULOSIN HCL 0.4 MG CAP.SR.24H PO SCH (17:38)
[2017-04-17] MEDS: NORMAL SALINE 1000 ML 1,000 ML IV PRN (17:39)
--- NOTE | 2017-04-17 19:56 | PDOC PROGRESS REPORT ---
Subjective Progress Note for:: 04/17/17 Subjective:: He was seen by the bedside, I discussed with the the options available after discharge from the hospital, it seems that patient spouse is not able to take care of him any longer she wants in place in a long-term care facility. Unfortunately he does not have Medicaid he has Medicare and for life, [facility] would need to get involved in order to get placement in long-term care that would be financially reasonable for the family Physical Exam Vital Signs: Temp Pulse Resp BP Pulse Ox 97.7 F 74 20 127/82 H 100 04/17/17 16:21 04/17/17 16:21 04/17/17 16:21 04/17/17 16:21 04/17/17 16:21 Intake & Output 04/16/17 04/17/17 04/18/17 06:59 06:59 06:59 Intake Total 3604 2139 1093 Output Total 50 1 Balance 3604 2089 1092 Weight 68.5 kg 82 kg General appearance: PRESENT: no acute distress Head exam: PRESENT: atraumatic, normocephalic Eye exam: PRESENT: conjunctiva pink, EOMI, PERRLA Neck exam: PRESENT: full ROM Respiratory exam: PRESENT: clear to auscultation hussein Cardiovascular exam: PRESENT: RRR, +S1, +S2 Vascular exam: PRESENT: normal capillary refill GI/Abdominal exam: PRESENT: normal bowel sounds, soft Rectal exam: PRESENT: deferred Neurological exam: PRESENT: alert Psychiatric exam: PRESENT: appropriate affect, normal mood Skin exam: PRESENT: dry, intact, warm Results Laboratory Results: 04/13/17 22:50 04/14/17 08:48 04/11/17 04/11/17 04/11/17 20:22 20:22 20:22 Creatine Kinase 186 H CK-MB (CK-2) 1.41 Troponin I 0.015 NT-Pro-B Natriuret Pep 4410 H 04/12/17 04/12/17 04/12/17 02:05 02:05 09:02 Creatine Kinase 139 104 CK-MB (CK-2) 1.15 Troponin I 0.021 NT-Pro-B Natriuret Pep 04/12/17 09:02 Creatine Kinase CK-MB (CK-2) 1.10 Troponin I 0.019 NT-Pro-B Natriuret Pep Impressions: Chest X-Ray 04/11/17 10:38 IMPRESSION: NO SIGNIFICANT RADIOGRAPHIC FINDING IN THE CHEST. Head CT 04/11/17 10:38 IMPRESSION: Chronic white matter disease, age-appropriate prominence of the ventricles and sulci. No acute findings EVIDENCE OF ACUTE STROKE: NO. Assessment & Plan - Diagnosis (1) Acute kidney injury Is this a current diagnosis for this admission?: Yes (2) Urinary tract infection Qualifiers: Urinary tract infection type: site unspecified Hematuria presence: without hematuria Qualified Code(s): N39.0 - Urinary tract infection, site not specified Is this a current diagnosis for this admission?: Yes (3) Liver cirrhosis Qualifiers: Hepatic cirrhosis type: alcoholic cirrhosis Ascites presence: without ascites Qualified Code(s): K70.30 - Alcoholic cirrhosis of liver without ascites Is this a current diagnosis for this admission?: Yes (4) Dementia associated with alcoholism Qualifiers: Dementia behavioral disturbance: without behavioral disturbance Qualified Code(s): F10.97 - Alcohol use, unspecified with alcohol-induced persisting dementia Is this a current diagnosis for this admission?: Yes
[2017-04-18] MEDS: MULTIVIT-STRESS FORMULA/ZINC TABLET PO SCH (09:54)
[2017-04-18] MEDS: AMLODIPINE BESYLATE 2.5 MG TABLET PO SCH (09:54)
[2017-04-18] MEDS: CITALOPRAM HYDROBROMIDE 20 MG TABLET PO SCH (09:54)
[2017-04-18] MEDS: CEFTRIAXONE 1 GM/D5W RTU 1 GM/50 ML RTUPB IV SCH (09:55)
[2017-04-18] MEDS: ATENOLOL 50 MG TABLET PO SCH (09:55)
--- NOTE | 2017-04-18 17:09 | PDOC TRANSFER SUMMARY ---
General - Admit/Disc Date/PCP Admission Date/Primary Care Provider: 04/11/17 20:05 EMERALD TAPIA MD Discharge Date: 04/18/17 - Discharge Diagnosis (1) Acute kidney injury Is this a current diagnosis for this admission?: Yes (2) Urinary tract infection Is this a current diagnosis for this admission?: Yes (3) Liver cirrhosis Is this a current diagnosis for this admission?: Yes (4) Dementia associated with alcoholism Is this a current diagnosis for this admission?: Yes (5) Frequent falls Is this a current diagnosis for this admission?: Yes - Additional Information Resuscitation Status: Full Code Home Medications: Amlodipine Besylate [Norvasc 2.5 mg Tablet] 2.5 mg PO DAILY 02/17/17 Citalopram Hydrobromide [Celexa] 20 mg PO DAILY 04/11/17 Tamsulosin HCl [Flomax 0.4 mg Cap.sr] 0.4 mg PO PCSUPPER 04/11/17 Vitamin B Complex [B Complex # 1] 250 mg PO DAILY 04/11/17 Metoprolol Succinate 50 mg PO DAILY #30 tab.er.24h 04/18/17 Thiamine HCl [Thiamine 100 mg Tablet] 100 mg PO DAILY #30 tablet 04/18/17 History of Present Illness Admission Date/PCP: 04/11/17 20:05 EMERALD TAPIA MD History of Present Illness: ERIC WEIR is a 81 year old male, history of chronic alcohol dependence, he was brought to the emergency room by his because of multiple falls, confusion, he was disoriented to present time and place. 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 In the emergency room he was evaluated he was found to have acute kidney injury associated with hyperkalemia. 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 I spoke to the , she stated that the patient recently has had multiple falls and she cannot take care of him anymore at home. She has had to call EMS to the residence couple of times when he fell and she could not get him off the floor. It seems that patient may ultimately need placement in the long-term care facility like a halfway. Hospital Course Hospital Course: Patient was admitted for the management of acute kidney injury due to prerenal dehydration, dementia, alcohol-related. He was treated empirically for UTI with IV antibiotic on admission he had acute kidney injury, this resolved with IV hydration suggesting prerenal dehydration. Patient spouse is no longer able to take care of this patient at home, she has are to call EMS on many occasions when he will fall on she could not get him off the floor. Physical Exam Vital Signs: Temp Pulse Resp BP Pulse Ox 97.7 F 76 16 153/89 H 98 04/18/17 08:48 04/18/17 08:48 04/18/17 08:48 04/18/17 08:48 04/18/17 08:48 Intake & Output 04/17/17 04/18/17 04/19/17 06:59 06:59 06:59 Intake Total 2139 1383 480 Output Total 50 1 Balance 2089 1382 480 Weight 82 kg 87 kg General appearance: PRESENT: no acute distress Eye exam: PRESENT: PERRLA Respiratory exam: PRESENT: clear to auscultation hussein Cardiovascular exam: PRESENT: +S1, +S2 GI/Abdominal exam: PRESENT: soft Neurological exam: PRESENT: alert, CN II-XII grossly intact Skin exam: PRESENT: warm Results Laboratory Results: 04/13/17 22:50 04/14/17 08:48 04/11/17 04/11/17 04/11/17 20:22 20:22 20:22 Creatine Kinase 186 H CK-MB (CK-2) 1.41 Troponin I 0.015 NT-Pro-B Natriuret Pep 4410 H 04/12/17 04/12/17 04/12/17 02:05 02:05 09:02 Creatine Kinase 139 104 CK-MB (CK-2) 1.15 Troponin I 0.021 NT-Pro-B Natriuret Pep 04/12/17 09:02 Creatine Kinase CK-MB (CK-2) 1.10 Troponin I 0.019 NT-Pro-B Natriuret Pep Impressions: Chest X-Ray 04/11/17 10:38 IMPRESSION: NO SIGNIFICANT RADIOGRAPHIC FINDING IN THE CHEST. Head CT 04/11/17 10:38 IMPRESSION: Chronic white matter disease, age-appropriate prominence of the ventricles and sulci. No acute findings EVIDENCE OF ACUTE STROKE: NO.
[2017-04-18] MEDS: TAMSULOSIN HCL 0.4 MG CAP.SR.24H PO SCH (17:23)
[2017-04-18 20:49] VITALS: BP 132/79
== END 2017-04-18 20:35 | DRG 683 ==
LOC: ER 10:21 → EH 13:50 → UNDOADMIN 13:50 → EH 15:09 → 4S 15:09 → EH 20:05 → 4S 20:05
PROVIDERS: ADMIT Internal Medicine; ATTEND Internal Medicine
PROC: 3E0234Z Introduction of Serum, Toxoid and Vaccine into Muscle, Percutaneous Approach (ICD-10-PCS; principal; 2017-04-18)
DX: N17.9 Acute kidney failure, unspecified (principal); N39.0 Urinary tract infection, site not specified; F10.27 Alcohol dependence with alcohol-induced persisting dementia; K70.30 Alcoholic cirrhosis of liver without ascites; E86.0 Dehydration; I25.10 Atherosclerotic heart disease of native coronary artery without angina pectoris; I10 Essential (primary) hypertension; J44.9 Chronic obstructive pulmonary disease, unspecified; M19.90 Unspecified osteoarthritis, unspecified site; F32.9 Major depressive disorder, single episode, unspecified; E87.5 Hyperkalemia; Z23 Encounter for immunization; Z91.81 History of falling; Z79.899 Other long term (current) drug therapy; Z86.718 Personal history of other venous thrombosis and embolism; Z87.891 Personal history of nicotine dependence
CPT/HCPCS: 36415; 51701; 70450; 71020; 80048; 80053; 80061; 80076; 80307; 81001; 82140; 82150; 82550; 82553; 82962; 83036; 83690; 83735; 83880; 84100; 84439; 84443; 84484; 85025; 85610; 85730; 87040; 90686; 93005; 93010; 99291; G8978-GP; G8979-GP; J0696; J1815; J3490; J7030

== ENCOUNTER → 2017-09-20 | Outpatient (CLI) | payer MEDICARE, OTHER ==
--- NOTE | 2017-09-20 14:25 | RADIOLOGY REPORT (SQ) ---
EXAM DESCRIPTION: VENOUS UNILATERAL LOWER COMPLETED DATE/TIME: 09/20/2017 2:11 pm REASON FOR STUDY: LLE SWELLING R22.42 LOCALIZED SWELLING, MASS AND LUMP, LEFT LOWER LIMB COMPARISON: None. TECHNIQUE: Dynamic and static barnes scale and color images acquired of the left leg venous system. Se lected spectral images acquired with additional compression and augmentation maneuvers. The contralat eral common femoral vein and saphenofemoral junction were also imaged. Images stored on PACS. LIMITATIONS: None. FINDINGS: COMMON FEMORAL: Normal phasicity, compression and augmentation. No visualized echogenic ma terial on barnes scale. No defects on color images. FEMORAL: Normal compression and augmentation. No visualized echogenic material on barnes scale. No defe cts on color images. POPLITEAL: Normal compression, augmentation. No visualized echogenic material on barnes scale. No defec ts on color images. CALF VESSELS: Normal compression, augmentation. No visualized echogenic material on barnes scale. No de fects on color images. GSV and SSV: Normal compression, augmentation. No visualized echogenic material on barnes scale. No def ects on color images. ANY DEEP VENOUS INSUFFICIENCY: Not evaluated. ANY EVIDENCE OF POPLITEAL CYST: No. OTHER: No other significant finding. CONTRALATERAL COMMON FEMORAL VEIN AND SAPHENOFEMORAL JUNCTION: Normal phasicity, compression and augmentation. No visualized echogenic material on barnes scale. No de fects on color images. IMPRESSION: NO EVIDENCE DVT OR SVT IN THE LEFT LEG. TECHNICAL DOCUMENTATION: JOB ID: [id number] [employer]- All Rights Reserved Reading location - IP/workstation name: [email or web address]
== END ==
LOC: SP 13:25
PROVIDERS: ATTEND Internal Medicine
DX: R22.42 Localized swelling, mass and lump, left lower limb (principal)
CPT/HCPCS: 93971

== ENCOUNTER → 2018-01-19 | Outpatient (CLI) | payer MEDICARE, OTHER ==
--- NOTE | 2018-01-19 15:50 | RADIOLOGY REPORT (SQ) ---
EXAM DESCRIPTION: CT CHEST WITHOUT COMPLETED DATE/TIME: 01/19/2018 1:57 pm REASON FOR STUDY: R91.1 SOLITARY PULMONARY NODULE R91.1 SOLITARY PULMONARY NODULE COMPARISON: Chest x-ray dated April [address] scan dated February 2017 TECHNIQUE: CT scan performed of the chest without intravenous contrast. Images reviewed with lung, soft tissue and bone windows. Reconstructed coronal and sagittal MPR images reviewed. All images st ored on PACS. All CT scanners at this facility use dose modulation, iterative reconstruction, and/or weight based d osing when appropriate to reduce radiation dose to as low as reasonably achievable (ALARA). [facility]: Dose Right [facility]: CareDose [facility]: Dose Right [facility]: Teradose 4D [facility]: Smart Technologies RADIATION DOSE: CT Rad equipment meets quality standard of care and radiation dose reduction techniq ues were employed. CTDIvol: 11.0 mGy. DLP: 422 mGy-cm. mGy. LIMITATIONS: No technical limitations. FINDINGS: LUNGS AND PLEURA: No masses, infiltrates, or pneumothorax. No pleural effusions or pleura l calcifications. Small pleural-based calcified granuloma is again identified in the right [place] g field anteriorly. There are 5 small pulmonary nodular densities projected in the left lung base 3 of which are in close proximity to the left hemidiaphragm. The largest of these measures 5.7 mm in d iameter. This area was obscured due to a left pleural effusion on the previous study. Followup ruddy mmendations are as noted below. HILAR AND MEDIASTINAL STRUCTURES: No identified masses or abnormal nodes. No obvious aneurysm. HEART AND VASCULAR STRUCTURES: No aneurysm. No pericardial effusion. Coronary artery calcifications are identified. UPPER ABDOMEN: No significant findings. Limited exam. THYROID AND OTHER SOFT TISSUES: No masses. No adenopathy. BONES: No significant finding. HARDWARE: None in the chest. OTHER: No other significant findings. IMPRESSION: Pulmonary nodules in the left lung base as noted above with the largest measuring 5.7 mm in diameters. Followup recommendations are as noted below. Other findings as noted above. COMMENT: FLEISCHNER CRITERIA FOR FOLLOW-UP OF PULMONARY NODULES Incidentally detected new nodules in persons 35 or older. HIGH RISK: History of smoking or other known risk factors. <6mm single solid nodule: LOW RISK: no routine followup. HIGH RISK: optional CT 12 mo. TECHNICAL DOCUMENTATION: JOB ID: [id number] Quality ID # [id number]: Final reports with documentation of one or more dose reduction techniques (e.g., Au tomated exposure control, adjustment of the mA and/or kV according to patient size, use of iterative reconstruction technique) 2010 [employer]- All Rights Reserved Reading location - IP/workstation name: [email or web address]
== END ==
LOC: RAD 14:47
PROVIDERS: ATTEND Internal Medicine Pulmonary Disease
DX: R91.1 Solitary pulmonary nodule (principal)
CPT/HCPCS: 71250

== ENCOUNTER 2018-02-13 09:03 | Day surgery (SDC) | payer MEDICARE, OTHER ==
[~2018-02-13 09:03] MED LIST: BUPIVACAINE HCL 0.75% INJ/PF (7.5 MG/1 ML) 10 ML SDV OS PRN; CHONDR SU A NA/HYALUR INTRAOC KIT (SURGICARE) ONE; EPINEPHRINE INJ/PF 1 MG/1 ML AMPULE ONE; KETOROLAC TROMETHAMINE 0.45% 4 DROP/0.4 ML DROPERETTE OS PRN; LIDOCAINE 1%/PHENYLEPHRINE 1.5% 1 ML VIAL ONE; LIDOCAINE 4% INJ/PF (40 MG/ML) 5 ML AMPUL OS PRN
[2018-02-13] MEDS: CYCLOPENTOLATE 0.2%/PHENYLEPHRINE 1% OPH SOLN 2 ML OS PRN ×3 (09:33→09:53)
[2018-02-13] MEDS: BESIFLOXACIN HCL 0.6% OPH SUSP 5 ML BOTTLE OS PRN ×4 (09:33→11:01)
[2018-02-13] MEDS: TROPICAMIDE 1% OPH SOLN 3 ML OS PRN ×3 (09:33→09:53)
[2018-02-13] MEDS: TETRACAINE HCL 0.5% OPH SOLN 0.6 ML DROPERETTE OS PRN ×2 (09:34→09:53)
[2018-02-13] MEDS ORDERED: MIDAZOLAM 2 MG/2 ML INJ ONE (10:07)
--- NOTE | 2018-02-13 13:10 | [facility] OPERATIVE REPORT E ---
[facility] Operative Report NAME: ERIC WEIR AGE: 82Y DATE OF SURGERY: 02/13/2018 ROOM: PREOPERATIVE DIAGNOSIS: Cataract, left eye. POSTOPERATIVE DIAGNOSIS: Cataract, left eye. PROCEDURE PERFORMED: Phacoemulsification with posterior chamber intraocular lens, left eye. SURGEON: CHRIS MANNING M.D. ANESTHESIA: Topical with MAC. INDICATIONS FOR SURGERY: Inability to view the fundus. Inability to see TV or read. Best corrected visual acuity count fingers. PROCEDURE: The patient was brought to the operating room and placed on the operative table. Following tetracaine drops, topical anesthesia was administered. This consisted of instrument wipe pledgets soaked in a solution of 4% Xylocaine mixed with 0.75% Marcaine in a 1:2 ratio. A 2 x 1 cm pledget was placed in the superior fornix. A 1 x 1 cm pledget was placed in the inferior fornix. The eye was patched shut for 5 minutes. The patch was removed. The eye was sterilely prepped and draped in the usual manner. Lid speculum was placed in the eye. The pledgets were removed and 4-0 black silk sutures were placed around the superior and the inferior rectus muscles to be used as traction. A conjunctival peritomy was made at the 10 o'clock position. Hemostasis was obtained with bipolar cautery. A posterior limbal groove was created using a crescent knife and dissected anteriorly towards the cornea. A sharp point blade was used to create a paracentesis site at the 2 o'clock position. A 2.4 mm keratome was used to enter the anterior chamber through the groove. Viscoelastic was injected into the anterior chamber. An anterior capsulotomy was performed using Utrata forceps in a capsulorrhexis fashion. Hydrodissection and hydrodelineation were performed. Phacoemulsification was performed in [id number] technique. Total phaco time was 18.61 CDE. Following this, the I/A unit was used to remove residual cortex. Viscoelastic was injected into the capsular bag. Intraocular lens model [id number], 20.5 diopters, serial number [id number], was placed in the capsular bag. The I/A unit was used to remove residual viscoelastic. The wound was seen to be watertight under high and low pressure, and no sutures were placed. The intraocular lens was well centered. The pressure was adjusted in the eye to normal pressure. The 4-0 black silk sutures and lid speculum were removed. The eye was shielded after Besivance drops were placed. The patient tolerated the procedure well and was sent to the recovery room in good condition. DICTATING PHYSICIAN: CHRIS MANNING M.D. [id number] PHY#: [id number] ID: [id number] JOB#: [id number] ACCT: [id number] cc:CHRIS MANNING M.D. >
--- NOTE | 2018-02-13 13:11 | [facility] DISCHARGE SUMMARY E ---
[facility] Discharge Summary NAME: ERIC WEIR AGE: 82Y ADMITTED: 02/13/2018 DISCHARGED: 02/13/2018 FINAL DIAGNOSIS: Cataract, left eye. HOSPITAL COURSE: The patient is an 82-year-old gentleman who underwent uneventful cataract extraction with intraocular lens implant, left eye, on 02/13/2018. He will be discharged to home. He was instructed to resume preoperative medications; to take Tylenol as needed for discomfort; to keep his eye shielded; to use Prolensa, Besivance, and Durezol at 3 p.m. and 8 p.m.; and to follow up in my office in 1 day. DICTATING PHYSICIAN: CHRIS MANNING M.D. [id number] PHY#: [id number] ID: [id number] JOB#: [id number] ACCT: [id number] cc:CHRIS MANNING M.D. >
== END 2018-02-13 11:42 | disposition other institution (70) ==
LOC: SC 09:03
PROVIDERS: ATTEND Ophthalmology
DX: H25.812 Combined forms of age-related cataract, left eye (principal); H57.03 Miosis; I10 Essential (primary) hypertension; M19.90 Unspecified osteoarthritis, unspecified site; G30.9 Alzheimer's disease, unspecified; F02.80 Dementia in other diseases classified elsewhere, unspecified severity, without behavioral disturbance, psychotic disturbance, mood disturbance, and anxiety; Z79.899 Other long term (current) drug therapy; Z87.891 Personal history of nicotine dependence
CPT/HCPCS: 142; J0171; J2250; J2370; J3490; V2632

== ENCOUNTER → 2018-06-19 | Outpatient (CLI) | payer MEDICARE, OTHER ==
--- NOTE | 2018-06-19 15:20 | RADIOLOGY REPORT (SQ) ---
EXAM DESCRIPTION: CT CHEST WITHOUT COMPLETED DATE/TIME: 06/19/2018 1:03 pm REASON FOR STUDY: R91.8 OTHER NONSPECIFIC ABNORMAL FINDING OF LUNG FIELD PULMONARY NODULES R91.8 OT HER NONSPECIFIC ABNORMAL FINDING OF LUNG FIELD COMPARISON: 01/19/2018 TECHNIQUE: CT scan performed of the chest without intravenous contrast. Images reviewed with lung, soft tissue and bone windows. Reconstructed coronal and sagittal MPR images reviewed. All images st ored on PACS. All CT scanners at this facility use dose modulation, iterative reconstruction, and/or weight based d osing when appropriate to reduce radiation dose to as low as reasonably achievable (ALARA). [facility]: Dose Right [facility]: CareDose [facility]: Dose Right [facility]: Teradose 4D [facility]: Zscaler RADIATION DOSE: CT Rad equipment meets quality standard of care and radiation dose reduction techniq ues were employed. CTDIvol: 10.6 mGy. DLP: 440 mGy-cm. mGy. LIMITATIONS: No technical limitations. FINDINGS: LUNGS AND PLEURA: Lungs demonstrate mild areas of ground-glass attenuation within the left lower lobe. Previously seen nodular opacities within the left lung base are no longer appreciated. No new dense consolidation. No significant pleural effusion. Unchanged subpleural fat the lung bas es. No pneumothorax. HILAR AND MEDIASTINAL STRUCTURES: No discrete mediastinal, hilar or axillary adenopathy. HEART AND VASCULAR STRUCTURES: Normal heart size. Scattered coronary atherosclerosis. No pericardia l effusion. UPPER ABDOMEN: No acute process in the visualized abdomen. THYROID AND OTHER SOFT TISSUES: No masses. No adenopathy. BONES: No acute osseous abnormality. No suspicious osseous lesions. HARDWARE: None in the chest. OTHER: No other significant findings. IMPRESSION: Resolution of previously seen left lower lobe nodular opacities. Minimal left basilar ground-glass attenuation possibly infectious/inflammatory. TECHNICAL DOCUMENTATION: JOB ID: [id number] Quality ID # [id number]: Final reports with documentation of one or more dose reduction techniques (e.g., Au tomated exposure control, adjustment of the mA and/or kV according to patient size, use of iterative reconstruction technique) 2010 [employer]- All Rights Reserved Reading location - IP/workstation name: [facility], [facility]
== END ==
LOC: RAD 13:51
PROVIDERS: ATTEND Internal Medicine Pulmonary Disease
DX: R91.8 Other nonspecific abnormal finding of lung field (principal)
CPT/HCPCS: 71250

== ENCOUNTER → 2018-07-17 | Outpatient (CLI) | payer MEDICARE, OTHER ==
--- NOTE | 2018-07-17 09:19 | RADIOLOGY REPORT (SQ) ---
EXAM DESCRIPTION: CURTISIE SWALLOW COMPLETED DATE/TIME: 07/17/2018 9:07 am REASON FOR STUDY: DYSPHAGIA (R13.10) R13.10 DYSPHAGIA, UNSPECIFIED HISTORY OF STROKE COMPARISON: None. TECHNIQUE: Videofluoroscopic swallowing examination was performed in conjunction with speech patholo gy. Videofluoroscopic imaging was obtained and reviewed and these are the findings: RADIATION DOSE: Fluoro time 2.5 minutes 2 images saved to PACS. LIMITATIONS: None FINDINGS: The patient was brought into the fluoro room and placed upright on a modified barium swall ow chair. The patient was then given multiple consistencies mixed with barium to swallow under live fluoroscopic video guidance. According to the Speech Pathologist there was aspiration seen with thin and nectar thick consistencies. Trace aspiration was also seen from residuals with pureed consisten cy. Please refer to the speech pathology report for further details. IMPRESSION: ASPIRATION SEEN WITH THIN AND NECTAR THICK CONSISTENCIES, WELL FROM RESIDUALS WITH PUREED.PLEASE SEE SPEECH PATHOLOGIST REPORT FOR OTHER FINDINGS AND RECOMMENDATIONS. COMMENT: NONE Quality ID 145: Final reports for procedures using fluoroscopy that document radiation exposure claudio kimberly, or exposure time and number of fluorographic images (if radiation exposure indices are not avail able) TECHNICAL DOCUMENTATION: JOB ID: [id number] [employer]- All Rights Reserved Reading location - IP/workstation name: [email or web address] [id number]
--- NOTE | 2018-07-17 17:12 | ST Modified Barium Swallow ---
Recommendation - Recommendations Recommendations: Patient aspirated all trial consistencies. Recommend physician discuss alternative means with patient's family due to no safe PO diet. Medical Diagnoses - Medical Diagnoses Medical Diagnosis Description & ICD-10 Code(s): dysphagia r13.10 Other Medical Diagnoses/Co-Morbidities: dementia, unable to obtain medical conditions list due to patient's mental status ST Modified Barium Swallow - General Date: 07/17/18 Referring Physician: Dr. Ivan Risks/Precautions: Aspiration Date of Onset: 07/10/18 - no exact onset date given Reason for Referral: dysphagia - History History obtained from: Other -: Medical - Patient arrived with transport staff from [facility]. Serjio has dementia and was unable to provide medical history. Does report globus sensation when eating solids. Medications: Aspirin, Atenolol, Vit B 6, Vit B12, Allergies: NKA - Functional Status Prior Functional Status: INDEPENDENT: feeding Current Functional Limitations: feeding - Subjective Patient/caregiver goal(s): r/o aspiration Cognitive-Linguistic Function: Moderately Impaired Speech Intelligibility: WNL Current Nutritional Means: PO - unknow diet texture Current symptoms: c/o Globus sensation Pain: denies pain - Objective Assessment: Upright, Left Lateral - Food Trials Used Food trials used: Thin liquids, [place] thick liquids, Pureed The patient: Required Assist - Oral-Motor Skills Dentition: Dentures-Upper, Dentures-Lower Velo-pharyngeal function: Unremarkable Laryngeal Function: no volitional swallow - Assessment Oral prep: Normal Labial closure: Adequate Leakage: None Lingual Movement: Normal - Pharyngeal Stage Initiation of Pharyngeal Stage Reflex: Delayed Reflex Delay Time (Seconds): 2 Decreased laryngeal elevation: Yes Reduced Velopharyngeal Closure: no Reduced pressure generation: Yes Pre-swallow pooling in valleculae: Significant Reduced Thyro-Hyoid approximation: Yes Reduced epiglottic excursion: Yes Reduced pharyngeal peristalsis/contraction: Yes Multiple Swallows with: Ineffective Clearance Post-swallow residulas vallecular: Significant Post-Swallow residuals in pyriforms: Mild - Fall Risk Assessment Medications/Conditions that increase fall risks include: Antidepressants, sedatives, anti-arrhythmic, diuretic, benzodiazipenes, neuroleptics. BP regulation problems, cardiac problems, balance or gait deficits, neurological problems. Fall Risk Actions Taken: No action needed - Behavioral Observations During evaluation process patient: was pleasant, was cooperative - Treatment / Educational Needs: Treatment/Education Needs: Treatment consisted of patient education on the role of the Speech Pathologist. Patient's plan of care and golas were communicated as well as scheduling and attendance policies. Recommendations for initial home program were shared. Patient demonstrated understanding and verbalized agreement. - Impression/Summary Tracheal Aspiration: yes - with all trial textures, deep, silent, during swallow, after swallow Compesatory strategies: unable to perform compensatory strategies Patient presents with: Pharyngeal stage dysph., Severe Risk of Aspiration: Severe Risk of nutritional compromise: Severe Evaluation and Findings: Patient seen to aspirate on all trial textures without a cough or throat clear response. Unable to complete compensatory strategies due to reduced ability to follow directions. Patient at high risk of aspiration on all textures, may benefit from consult for alternative means of nutrition/hydration. Discussed findings with Dr. Ivan at hospital this day. - Recommendations NPO: yes Strict aspiration precautions: Yes Pt/Family education and followup with MD: Yes Dysphagia therapy with SOUND ENGINEERING TECHNICIAN: no Information, Precautions and Recommendations: Patient (Written), Patient (Verbal) - Plan of Care Strategies to optimize patient understanding include:: ongoing assessment of educational needs, implementation of educational strategies, and re-education. - - -: Thank you for the opportunity to work with this patient and his/her family. Should you have any questions about this patient's plan or progress, I can be reached at [phone].
== END ==
LOC: RAD 08:11
PROVIDERS: ATTEND Internal Medicine Pulmonary Disease
DX: R13.10 Dysphagia, unspecified (principal); F03.90 Unspecified dementia, unspecified severity, without behavioral disturbance, psychotic disturbance, mood disturbance, and anxiety
CPT/HCPCS: 74230

== ENCOUNTER 2019-03-21 20:03 | Emergency (ER) | payer MEDICARE ==
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
[2019-03-22] MEDS ORDERED: DIPH/PERTUSS(ACELL)/TETANUS VAC/PF 0.5 ML SYR (>=10YO) IM ONE ×2 (00:04→03:55)
[2019-03-22] MEDS ORDERED: ACETAMINOPHEN 325 MG TABLET PO ONE (00:05)
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
[2019-03-22] MEDS ORDERED: ACETAMINOPHEN SUSP 160 MG/5 ML ORAL SYRING PO ONE (00:22)
[2019-03-22 04:11] VITALS: BP 163/93
== END 2019-03-22 04:08 | disposition home or self-care (01) ==
LOC: ER 20:03
DX: S09.90XA Unspecified injury of head, initial encounter (principal); S00.91XA Abrasion of unspecified part of head, initial encounter; S60.812A Abrasion of left wrist, initial encounter; S80.812A Abrasion, left lower leg, initial encounter; Y04.2XXA Assault by strike against or bumped into by another person, initial encounter; Y92.129 Unspecified place in nursing home as the place of occurrence of the external cause; I25.10 Atherosclerotic heart disease of native coronary artery without angina pectoris; F03.90 Unspecified dementia, unspecified severity, without behavioral disturbance, psychotic disturbance, mood disturbance, and anxiety; Z23 Encounter for immunization; Z86.718 Personal history of other venous thrombosis and embolism; Z98.1 Arthrodesis status
CPT/HCPCS: 70450; 72125; 90471; 90715; 99285

== ENCOUNTER 2020-03-11 06:12 | Emergency (ER) | payer MEDICARE, OTHER ==
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
--- NOTE | 2020-03-11 07:31 | RADIOLOGY REPORT (SQ) ---
CT of the head: 03/11/2020 6:28 AM CDT HISTORY: 84-year-old patient with fall, headache. COMPARISON: CT the head from 03/21/2019 TECHNIQUE: Multiple axial contiguous images were obtained through the head without intravenous contrast administered. This exam was performed according to our departmental dose-optimization program, which includes automated exposure control, adjustment of the mA and/or KV according to the patient's size and/or use of iterative reconstruction technique. FINDINGS: The ventricles and cerebral sulci demonstrate moderate prominence, consistent with cerebral atrophy. There are mild periventricular hypodensities, suggestive of periventricular white matter changes. The barnes-white matter differentiation is within normal limits. Both orbits appear unremarkable. There is partial opacification of the right mastoid air cells. The visualized paranasal sinuses appear clear. The calvarium is intact. No extra-axial fluid collection is seen. No midline shift or mass effect is apparent. There are no findings to suggest acute intracranial hemorrhage. IMPRESSION: 1. No acute intracranial hemorrhage is seen. 2. Mild to moderate cerebral atrophy and periventricular white matter changes are seen.
--- NOTE | 2020-03-11 07:33 | RADIOLOGY REPORT (SQ) ---
CT CERVICAL SPINE: 03/11/2020 6:30 AM CDT TECHNIQUE: Axial contiguous images were obtained through the cervical spine without intravenous contrast. Sagittal and coronal reconstructions were also reviewed. This exam was performed according to our departmental dose-optimization program, which includes automated exposure control, adjustment of the mA and/or KV according to the patient's size and/or use of iterative reconstruction technique. COMPARISON: None available INDICATION: 84-year old patient with neck pain . FINDINGS: There is anterolisthesis of C4 over C5 by 2 to 3 mm. The vertebral body heights appear well maintained. No significant pre-vertebral soft tissue swelling is noted. No definite fracture or subluxation is noted. Moderate multilevel intervertebral disc space narrowing is seen. The visualized brain parenchyma appears unremarkable. The craniocervical junction is unremarkable. There is moderate multilevel facet hypertrophy present. Multilevel anterior osteophytes are also seen. There is partial opacification of the right mastoid air cells. IMPRESSION: There are no findings to suggest an acute fracture or subluxation within the cervical spine.
[2020-03-11 09:35] VITALS: BP 112/66
== END 2020-03-11 09:35 | disposition home or self-care (01) ==
LOC: ER 06:12
DX: S00.03XA Contusion of scalp, initial encounter (principal); W19.XXXA Unspecified fall, initial encounter; Y92.129 Unspecified place in nursing home as the place of occurrence of the external cause; I25.10 Atherosclerotic heart disease of native coronary artery without angina pectoris; I10 Essential (primary) hypertension; J44.9 Chronic obstructive pulmonary disease, unspecified
CPT/HCPCS: 70450; 72125; 99284